=== PATIENT | female | born 1935 | race Caucasian/White ===

== ENCOUNTER 2019-04-22 14:59 | Observation (INO) | payer MEDICARE, SELFPAY | END 2019-04-23 11:10 | disposition home or self-care (01) | LOC: MEDSURG 04-23 08:36 | PROVIDERS: Admitting Provider Internal Medicine; Family Provider Nurse Practitioner; PCP Nurse Practitioner; Visit Provider Internal Medicine | DX: I48.0 Paroxysmal atrial fibrillation (principal); G40.909 Epilepsy, unspecified, not intractable, without status epilepticus; E78.5 Hyperlipidemia, unspecified; Z86.73 Personal history of transient ischemic attack (TIA), and cerebral infarction without residual deficits; E03.9 Hypothyroidism, unspecified; Z91.81 History of falling; Z79.82 Long term (current) use of aspirin; Z82.49 Family history of ischemic heart disease and other diseases of the circulatory system | CPT/HCPCS: 36415 ×2; 71045; 80053 ×2; 80177; 81003; 84439; 84443; 84481; 84484 ×3; 85025 ×2; 93005 ×4; 96361; 96374; 99285; G0378 ×81; J3490 ==

== ENCOUNTER 2019-05-16 12:14 | Observation (INO) | payer MEDICARE, SELFPAY ==
[2019-05-16 12:14] VITALS: BP 106/60; PULSE 53; RESP 16; TEMP 36.4; O2SAT 100; BMI 18.4
--- NOTE | 2019-05-16 12:17 | ED_ITS ---
Entered by Paula Khan, acting as scribe for Go Palma DO HPI - SOB/Dyspnea General: Chief Complaint: General Medical Stated Complaint: AFIB WITH RVR Time Seen by Provider: 05/16/19 12:18 History of Present Illness: HPI Narrative: 84-year-old female with a history of atrial fibrillation and she reports she has a history of seizures as well. She is on Keppra. She has breakthrough seizures from time to time without thing she remembers everything and happens during them she can anticipate them they usually occur when she is standing she will get lightheaded and dizzy states she tries to sit down because she is on aspirin and is worried about bleeding out if she falls and hits her head. She denies any chest pain or shortness of breath she has lost control of her bowels of these episodes she cannot really describe the episodes very well forming other than that she can remember all of them. She is awake and alert oriented at this time she is not post ictal she tells me the most recent episode was a couple hours before she came in. Associated symptoms: Deny abdominal pain, chest pain, fever(s), nausea, orthopnea or vomiting Review of Systems Const: Denies: fever, chills, body aches, change in appetite, fatigue or malaise ENMT: Denies: throat pain, ear pain, nasal discharge or nasal congestion Card: Denies: chest pain, edema, shortness of breath on exertion or shortness of breath when lying down Resp: Denies: shortness of breath, productive cough or non-productive cough GI: Denies: abdominal pain, nausea, vomiting, vomiting blood, coffee grounds in vomit, diarrhea, constipation, bloating, blood in stool or black tarry stool : Denies: flank pain, difficulty urinating, painful urination, urinary frequency or urinary urgency Skin/Breast: Denies: rash or itching PFSH ED PFSH: Statuses (acute, chronic, etc) shown below reflect problem list status as previously entered and may not be historically accurate Medical History Brain lesion (Acute) Hyperlipidemia (Acute) Hypothyroidism (Acute) Seizure disorder (Acute) Surgical History History of bladder surgery (Acute) History of tonsillectomy (Acute) History of total hysterectomy (Acute) Family History Other CAD (coronary artery disease) Social History Smoking and tobacco status: never smoked Alcohol intake: never Household members: family Housing: House Physical Exam Const: COMMON NORMALS: no apparent distress GENERAL APPEARANCE: cooperative and comfortable ORIENTATION/CONSCIOUSNESS: Yes awake, Yes oriented to person, Yes oriented to place and Yes oriented to time HENMT: COMMON NORMALS: normocephalic, head/scalp atraumatic, hearing grossly normal bilaterally, external ears normal, EAC's normal, TM's normal bilaterally, nasal mucous membranes and turbinates normal, moist oral mucous membranes and oropharynx normal HEAD & SCALP: normocephalic and atraumatic NOSE: nasal mucous membranes and turbinates normal EXTERNAL EAR: Yes external ears normal EXTERNAL AUDITORY CANAL: EAC's normal TYMPANIC MEMBRANE: TM's normal bilaterally Eye: COMMON NORMALS: PERRL, EOMs intact bilaterally, conjunctivae normal and no scleral icterus CONJUNCTIVA: Yes conjunctivae normal PUPIL: Yes PERRL Neck/C-Spine: COMMON NORMALS: full ROM, no lymphadenopathy, supple and no JVD Lymph: LYMPHATIC: no lymphadenopathy noted and no lymphedema noted Resp: COMMON NORMALS: normal respiratory effort, no retractions, no use of accessory muscles and clear to auscultation bilaterally AUSCULTATION: clear to auscultation bilaterally Cardio: COMMON NORMALS: no JVD and no murmurs RHYTHM: abnormal rhythm irregularly irregular GI: COMMON NORMALS: soft to palpation and no hepatosplenomegaly AUSCULTATION: Yes normoactive bowel sounds PALPATION: Yes soft, No tender, No guarding and Yes no hepatosplenomegaly Extremity: COMMON NORMALS: normal to inspection, normal capillary refill, no clubbing, cyanosis or edema, no calf tenderness and no pedal edema Neuro: SENSORIUM/ORIENTATION: Yes oriented to person, Yes oriented to place and Yes oriented to time Skin: COMMON NORMALS: no rashes or lesions noted GENERAL SKIN EXAM: no rashes or lesions noted Course ED course: SPECT patient having intermittent episodes of A. fib where she is getting syncopal or near syncopal she described what she describes as seizures she can remember almost the entire event and anticipated she is not particularly postictal by her own description. She does have a loop recorder on. Given she is had several these episodes and while here in the emergency room she is gone from being bradycardic in the 50s to one point when I was going to discharge her went into talk to her and her heart rate was up into the 130s 140s it resolved spontaneously. We will put her on observation see if there is a potential to make some medication adjustments to control her heart rate better Vital Signs: Vital signs: Vital Signs Temperature 97.8 F 05/17/19 15:11 Pulse Rate 73 05/17/19 15:11 Respiratory Rate 18 05/17/19 15:11 Blood Pressure 127/63 05/17/19 15:11 Pulse Oximetry 97 05/17/19 15:11 MDM - SOB/Dyspnea Lab Data: Labs: Lab Results 05/16/19 05/16/19 05/16/19 Range/Units 12:55 12:55 12:55 WBC 6.7 (4.0-10.0) 10^3/ uL RBC 4.26 (4.1-5.3) 10^6/u L Hgb 12.5 (11.5-15.3) g/dL Hct 38.3 (37.0-47.0) % MCV 89.9 (81-99) fL MCH 29.3 (28.0-34.0) pg MCHC 32.6 (30.0-36.0) g/dL RDW 13.0 (12.1-15.1) % Plt Count 232 (130-400) 10^3/c mm MPV 9.8 (7.4-10.4) fL Neut % (Auto) 73.7 % Lymph % (Auto) 18.2 % [place] % (Auto) 6.4 % Eos % (Auto) 0.9 % Baso % (Auto) 0.4 % Neut # (Auto) 4.9 (1.8-7.7) 10^3/u L Lymph # (Auto) 1.2 (0.8-4.8) 10^3/u L [place] # (Auto) 0.4 (0.2-0.9) 10^3/u L Eos # (Auto) 0.1 (0.0-0.8) 10^3/u L Baso # (Auto) 0.0 (0.0-0.1) 10^3/u L Nucleated RBC % (a uto) 0 % Nucleated RBCs # 0.0 /100WBC Sodium 141 (136-145) mmol/L Potassium 4.0 (3.5-5.1) mmol/L Chloride 105 (98-107) mmol/L Carbon Dioxide 24 (22-29) mmol/L Anion Gap 16.0 (5-19) BUN 14 (8-23) mg/dL Creatinine 0.5 (0.5-0.9) mg/dL Glucose 104 (74-106) mg/dL Calcium 9.9 (8.5-10.5) mg/dL Total Bilirubin 0.6 (0.15-1.2) mg/dL AST 28 (0-32) U/L ALT 32 (0-33) U/L Alkaline Phosphata se 112 H (35-105) IU/L Troponin T Baselin e (0-10) ng/mL NT-Pro-B Natriuret Pep 4054 H (0-450) pg/mL Total Protein 6.2 L (6.6-8.7) g/dL Albumin 3.7 (3.5-5.2) g/dL Globulin 2.5 (1.3-4.6) g/dL 05/16/19 Range/Units 16:25 WBC (4.0-10.0) 10^3/ uL RBC (4.1-5.3) 10^6/u L Hgb (11.5-15.3) g/dL Hct (37.0-47.0) % MCV (81-99) fL MCH (28.0-34.0) pg MCHC (30.0-36.0) g/dL RDW (12.1-15.1) % Plt Count (130-400) 10^3/c mm MPV (7.4-10.4) fL Neut % (Auto) % Lymph % (Auto) % [place] % (Auto) % Eos % (Auto) % Baso % (Auto) % Neut # (Auto) (1.8-7.7) 10^3/u L Lymph # (Auto) (0.8-4.8) 10^3/u L [place] # (Auto) (0.2-0.9) 10^3/u L Eos # (Auto) (0.0-0.8) 10^3/u L Baso # (Auto) (0.0-0.1) 10^3/u L Nucleated RBC % (a uto) % Nucleated RBCs # /100WBC Sodium (136-145) mmol/L Potassium (3.5-5.1) mmol/L Chloride (98-107) mmol/L Carbon Dioxide (22-29) mmol/L Anion Gap (5-19) BUN (8-23) mg/dL Creatinine (0.5-0.9) mg/dL Glucose (74-106) mg/dL Calcium (8.5-10.5) mg/dL Total Bilirubin (0.15-1.2) mg/dL AST (0-32) U/L ALT (0-33) U/L Alkaline Phosphata se (35-105) IU/L Troponin T Baselin e 20 H (0-10) ng/mL NT-Pro-B Natriuret Pep (0-450) pg/mL Total Protein (6.6-8.7) g/dL Albumin (3.5-5.2) g/dL Globulin (1.3-4.6) g/dL Discharge Plan Discharge Admit Provider: Cruz Cooper Clinical Impression: Paroxysmal atrial fibrillation, Seizure disorder Condition: Stable Discharge Orders: Discharge Order (Routine); Ordered 05/17/19 Ordered By: Cruz Cooper Discharge Diet: Regular Discharge Activity: Resume usual activity Interventions: ED Discharge Assessment Last Done: 05/16/19 17:58 Discharge Date/Time: 05/16/19 17:23 Coding Level of Care Code ED Analog 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
[2019-05-16 13:03] LABS: Basophils % 0.4 %; Eosinophils # 0.1 10^3/uL (0.0-0.8); Eosinophils % 0.9 %; Hematocrit 38.3 % (37.0-47.0); Hemoglobin 12.5 g/dL (11.5-15.3); Lymphocytes # 1.2 10^3/uL (0.8-4.8); Lymphocytes % 18.2 %; Mean Corpuscular HGB Conc 32.6 g/dL (30.0-36.0); Mean Corpuscular Hemoglobin 29.3 pg (28.0-34.0); Mean Corpuscular Volume 89.9 fL (81-99); Mean Platelet Volume 9.8 fL (7.4-10.4); Monocytes # 0.4 10^3/uL (0.2-0.9); Monocytes % 6.4 %; Neutrophils # 4.9 10^3/uL (1.8-7.7); Neutrophils % 73.7 %; Nucleated Red Blood Cells % 0 %; Platelet Count 232 10^3/cmm (130-400); Red Blood Count 4.26 10^6/uL (4.1-5.3); White Blood Count 6.7 10^3/uL (4.0-10.0)
[2019-05-16] MEDS: sodium chloride 0.9% 500 ML IV (13:05)
[2019-05-16 13:18] LABS: Alanine Aminotransferase 32 U/L (0-33); Albumin Level 3.7 g/dL (3.5-5.2); Alkaline Phosphatase 112 IU/L (35-105); Aspartate Amino Transferase 28 U/L (0-32); Blood Urea Nitrogen 14 mg/dL (8-23); Calcium 9.9 mg/dL (8.5-10.5); Carbon Dioxide 24 mmol/L (22-29); Chloride 105 mmol/L (98-107); Globulin 2.5 g/dL (1.3-4.6); Glucose 104 mg/dL (74-106); Sodium 141 mmol/L (136-145); Total Bilirubin 0.6 mg/dL (0.15-1.2); Total Protein 6.2 g/dL (6.6-8.7)
--- NOTE | 2019-05-16 16:06 | ECG_ITS ---
Measurements Intervals [place] Rate: 60 P: 60 OK: 164 QRS: -56 QRSD: 113 T: 90 QT: 430 QTc: 433 SINUS RHYTHM INCOMPLETE RIGHT BUNDLE BRANCH BLOCK [90+ ms QRS DURATION, TERMINAL R IN V1/V2, 40+ ms S IN I/aVL/V4/V5/V6] LEFT ANTERIOR FASCICULAR BLOCK [QRS AXIS <= -45, QR IN I, RS IN II] LEFT VENTRICULAR HYPERTROPHY AND ST-T CHANGE [VOLTAGE CRITERIA PLUS ST/T ABNORMALITY] POSSIBLE SEPTAL MYOCARDIAL INFARCTION , OF INDETERMINATE AGE [30 ms Q WAVE IN V1/V2] POSSIBLE LATERAL MYOCARDIAL INFARCTION , OF INDETERMINATE AGE [30 ms Q WAVE IN I/aVL/V5/V6] Compared to ECG 04/22/2019 17:20:23 No significant changes Electronically Signed On 05-17-2019 15:33:14 SWORD SWALLOWER by Alla Hooper M.D. [email or web address]
--- NOTE | 2019-05-16 16:07 | XRR_ITS ---
PROCEDURE INFORMATION: Exam: XR Chest, 1 View Exam date and time: 05/16/2019 4:33 PM Age: 84 years old Clinical indication: Cough; Prior surgery; Patient HX: PT has afib; Additional info: Cough, afib and seizure like activity TECHNIQUE: Imaging protocol: XR of the chest Views: 1 view. COMPARISON: CR Chest 1 [place] [id number] 04/22/2019 10:35 AM FINDINGS: Lungs: Lungs are mildly hyperinflated but otherwise clear. Pleural space: Apical pleural thickening is not changed from previous. Heart/Mediastinum: Heart is within normal limits of size. Bones/joints: Unremarkable. XR/XR chest 1V portable [id number] IMPRESSION: No acute infiltrate.
[2019-05-16 16:50] LABS: Troponin(5th) Baseline 20 ng/mL (0-10)
[2019-05-16 17:58] VITALS: BP 127/53; PULSE 75; RESP 20; O2SAT 97
--- NOTE | 2019-05-16 18:04 | PM.HP ---
Providers/Chief Complaint Primary Care Provider: Fransisca Patel Chief Complaint: AFIB WITH RVR History of Present Illness Trudy Jimenez is a 84 year old female Review of Systems Const: Reports: chills; Denies: fever, body aches, change in appetite, malaise, night sweats, diaphoresis, change in sleep pattern, daytime sleepiness or snoring Eyes: Denies: change in vision, blurry vision, photophobia, eye discomfort or eye discharge ENMT: Denies: throat pain, enlarged tonsils, hoarseness, mouth pain, oral sores/lesions, dry mouth, tinnitus, nasal congestion or post nasal drip Card: Reports: palpitations and pre-syncope; Denies: chest pain, irregular heart rhythm, edema, swelling of feet/ankles, lightheadedness, syncope, shortness of breath on exertion, shortness of breath when lying down, leg pain with exertion or bluish discoloration of hands/feet Resp: Denies: shortness of breath, productive cough, non-productive cough, wheezing, stridor, pain on inspiration, change in phlegm color, coughing up blood or chest congestion GI: Denies: abdominal pain, nausea, vomiting, vomiting blood, coffee grounds in vomit, difficulty swallowing, heartburn/indigestion, diarrhea, constipation, bloating, cramping, change in bowel habits, painful bowel movements, blood in stool or black tarry stool : Denies: flank pain, painful urination, urinary frequency, urinary urgency, urinary hesitancy, nighttime urination or blood in urine Musc: Denies: neck pain, back pain, extremity pain, joint pain, joint swelling, redness, joint stiffness or limited range of motion Neuro: Reports: frequent falls and dizziness; Denies: headache, numbness in extremities, weakness in extremities, changes in sensation, lack of coordination, difficulty walking, vertigo, confusion, slurred speech, difficulty communicating thoughts or seizure-like activity Psych: Denies: anxiety, depression, mood swings, panic attacks, hopelessness or irritability Endo: Denies: excessive urination, excessive thirst, tired all the time, cold intolerance, excessive sweating, flushing or heat intolerance Danielito/Lymph: Denies: easy bruising or easy bleeding All/Imm: Denies: tongue swelling, facial swelling or acute wheezing Medications/Allergies Home Medications Medication Instructions Recorded Confirmed Last Taken Type levetiracetam 1,000 mg PO BID 05/16/19 05/16/19 05/15/19 History Allergies Allergy/AdvReac Type Severity Reaction Status Date / Time Iodinated Contrast Media Allergy anaphylaxis Verified 05/16/19 12:22 Penicillins Allergy anaphylaxis Verified 05/16/19 12:22 Sulfa (Sulfonamide Allergy headache Verified 05/16/19 12:22 Antibiotics) PFSH Acute PFSH: Statuses (acute, chronic, etc) shown below reflect problem list status as previously entered and may not be historically accurate Medical History (Updated 05/16/19 @ 18:08 by Cruz Cooper MD) Brain lesion (Acute) Hyperlipidemia (Acute) Hypothyroidism (Acute) Seizure disorder (Acute) Surgical History (Updated 05/16/19 @ 18:08 by Cruz Cooper MD) History of bladder surgery (Acute) History of tonsillectomy (Acute) History of total hysterectomy (Acute) Family History (Updated 05/16/19 @ 18:08 by Cruz Cooper MD) Other CAD (coronary artery disease) Social History (Updated 05/16/19 @ 18:09 by Cruz Cooper MD) Smoking and tobacco status: never smoked Alcohol intake: never Substance/Drug Use: never Household members: family Housing: House Vitals/I&O/Wt Last Vital Signs Temp 97.5 F L 05/16/19 12:14 Pulse 75 05/16/19 17:58 Resp 20 H 05/16/19 17:58 BP 127/53 05/16/19 17:58 Pulse Ox 97 05/16/19 17:58 Weight last 48 hrs Weight 50.349 kg Physical Exam Narrative: EXAM NARRATIVE: General: No acute distress, AO x3, thin built, no pallor, occasional chills HEENT: PERRLA, pupils bilaterally equal and reactive Chest: Normal vesicular breath sounds, no added sounds, equal good air entry bilaterally CVS: S1-S2 regular, no murmurs, no tachycardia, no gallops, no rubs Abdomen: Soft, nontender, no organomegaly, bowel sounds present Neuro: No focal deficits, no facial deformity, AO x3, power 5/5 in all limbs Data : 05/16/19 12:55 05/16/19 12:55 A&P Assessment and plan (1) Paroxysmal atrial fibrillation: Status: Acute Code(s): I48.0 - Paroxysmal atrial fibrillation (2) Hypothyroidism: Status: Acute Code(s): E03.9 - Hypothyroidism, unspecified (3) Seizure disorder: Status: Acute Code(s): G40.909 - Epilepsy, unspecified, not intractable, without status epilepticus (4) Hyperlipidemia: Status: Acute Code(s): E78.5 - Hyperlipidemia, unspecified Additional A&P Information Paroxysmal A. fib: At present patient is in sinus rhythm. In ER patient had recurrent episodes of going into atrial fibrillation. Patient has a loop recorder placed 5 days ago by her junior linux administrator and primary care physician in [facility]. We will continue patient's home dose of Lopressor 37.5 twice daily. The patient has further episodes of persistent atrial fibrillation can give her 2.5 mg Lopressor every 4 hours for heart rate more than 120 with blood pressure over 110 systolic mmHg. Possible seizure disorder: Doubt patient actually has a seizure disorder. But patient is already on Keppra by her neurologist. She says she is been evaluated for possible brain lesions. Patient has an MRI scheduled at [facility] this week. We will continue the home dose of Keppra. We will get Keppra levels. As patient is having all the work-up at [facility] will not start the work-up again. Will not get an echocardiogram, CT head, MRI head as always being done as an outpatient. Had a discussion with patient regarding anticoagulation but she wants to discuss with her home neurologist, home junior linux administrator, primary care physician before starting to do so. We will continue patient's home dose of aspirin 325 which will also help with anticoagulation. Hypothyroidism: Patient home dose of levothyroxine has been continued. Check TSH. Occasional chills: Checking TSH as above. Patient does not have any history of fever, flulike symptoms, runny nose, change in bowel movements, dysuria. We will check UA. We will hold off on starting any antibiotics for now. Full code Lovenox for DVT prophylaxis Cardiac diet. Attestations Medical Necessity Statement*: Patient would need admission for less than 48 hours for observation for approximately A. fib. Time Spent in Patient Care: Greater than 35 minutes Coding Level of Care Code Acute Associate Buyer for Chg Fwd Diagnoses Paroxysmal atrial fibrillation I48.0 Hypothyroidism E03.9 Seizure disorder G40.909 Hyperlipidemia E78.5
[2019-05-16 18:43] LABS: NT Pro B Type Natriuretic Pept 4054 pg/mL (0-450)
[2019-05-16 20:00] VITALS: BP 106/49; PULSE 63; RESP 20; TEMP 37; O2SAT 98
[2019-05-16] MEDS: enoxaparin 40 mg/0.4 mL Syringe SUBCUT (20:19)
[2019-05-16] MEDS: levETIRAcetam 500 mg Tablet 1000 MG PO (20:21)
[2019-05-16 22:49] LABS: Troponin 5 6HR 21.25 ng/L (0-10); Troponin 5 6HR Delta 1.25 ng/L (0-12)
[2019-05-17] VITALS: BP 131/66; PULSE 63; RESP 20; TEMP 36.9; O2SAT 96
[2019-05-17 04:00] VITALS: BP 147/69; PULSE 68; RESP 20; TEMP 36.6; O2SAT 97
[2019-05-17 06:01] LABS: Basophils % 0.6 %; Eosinophils # 0.1 10^3/uL (0.0-0.8); Eosinophils % 2.5 %; Hematocrit 35.8 % (37.0-47.0); Hemoglobin 11.5 g/dL (11.5-15.3); Lymphocytes # 1.7 10^3/uL (0.8-4.8); Lymphocytes % 33.7 %; Mean Corpuscular HGB Conc 32.1 g/dL (30.0-36.0); Mean Corpuscular Hemoglobin 29.1 pg (28.0-34.0); Mean Corpuscular Volume 90.6 fL (81-99); Mean Platelet Volume 10.5 fL (7.4-10.4); Monocytes # 0.5 10^3/uL (0.2-0.9); Monocytes % 9.8 %; Neutrophils # 2.7 10^3/uL (1.8-7.7); Neutrophils % 52.8 %; Nucleated Red Blood Cells % 0 %; Platelet Count 203 10^3/cmm (130-400); Red Blood Count 3.95 10^6/uL (4.1-5.3); Red Cell Distribution Width 12.8 % (12.1-15.1); White Blood Count 5.1 10^3/uL (4.0-10.0)
[2019-05-17 06:16] LABS: Alanine Aminotransferase 28 U/L (0-33); Albumin Level 3.4 g/dL (3.5-5.2); Alkaline Phosphatase 105 IU/L (35-105); Aspartate Amino Transferase 29 U/L (0-32); Blood Urea Nitrogen 16 mg/dL (8-23); Calcium 9.6 mg/dL (8.5-10.5); Carbon Dioxide 26 mmol/L (22-29); Chloride 107 mmol/L (98-107); Globulin 2.6 g/dL (1.3-4.6); Glucose 87 mg/dL (74-106); Sodium 143 mmol/L (136-145); Thyroid Stimulating Hormone 0.52 uIU/mL (0.27-4.20); Total Bilirubin 0.5 mg/dL (0.15-1.2)
[2019-05-17 07:44] VITALS: BP 136/57; PULSE 67; RESP 18; TEMP 36.6; O2SAT 96
[2019-05-17 08:13] VITALS: BP 146/63; BP 152/68; BP 154/65; PULSE 62; PULSE 77
[2019-05-17] MEDS: aspirin 325 mg Tablet PO (11:26)
[2019-05-17] MEDS: levothyroxine 88 mcg Tablet PO (11:26)
[2019-05-17] MEDS: metoprolol tartrate 25 mg Tablet 37.5 MG PO (11:26)
[2019-05-17] MEDS: levETIRAcetam 500 mg Tablet 1000 MG PO (11:28)
[2019-05-17] MEDS: atorvastatin 40 mg Tablet PO (11:29)
[2019-05-17 11:32] VITALS: BP 127/63; PULSE 73; RESP 18; TEMP 36.6; O2SAT 97
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
--- NOTE | 2019-05-17 13:53 | P.DS_ITS ---
Discharge Providers Date of Admission: 05/16/19 17:00 Date of Discharge: 05/17/19 Attending Provider at Admission: Cruz Cooper MD Attending Provider at Discharge: Cruz Cooper MD Primary Care Provider: Fransisca Patel Diagnoses at Discharge Discharge Diagnosis (1) Paroxysmal atrial fibrillation: Status: Acute (2) Hypothyroidism: Status: Acute (3) Seizure disorder: Status: Acute (4) Hyperlipidemia: Status: Acute Reason for Visit Reason for Visit: Reason For Visit: AFIB WITH RVR Hospital Course Discharge Summary: Trudy Jimenez is a 84 year old female with past medical history of possible seizure disorder, 3 strokes, 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 In the ER patient had 3 bursts of atrial fibrillation with rapid ventricular response going up to 130s so she was admitted to the hospital for observation. As per her [id number] patient has recurrent episodes when she would stand up and would go into atrial fibrillation leading her to have dizziness followed by tremulous shaking of her body, gurgling from her mouth and occasional bowel and bladder accidents. Patient was observed on the floor with telemetry. Patient overnight did not have any more episodes of A. fib with RVR and her blood pressures remained stable. Patient's orthostatics were negative as well. Patient's TSH levels were checked and within normal limits. In view of the kind of history Keppra levels were checked and are pending. As patient is being followed up with neurology and neurosurgery at [facility] they want to discuss with both snow removal/plowing and neurologist before starting the anticoagulation. In past patient's neurologist as per the patient has shown come some concerns regarding anticoagulation due to her occasional to frequent falls along with a possible mass under evaluation with recurrent MRIs. Patient is being discharged in hemodynamically stable condition to follow-up with Dr. Aranda from cardiology in 1 week and her neurologist in 1 week as well to discuss about anticoagulation. Patient states she has had a recent echocardiogram done at [facility]. Physical Exam Narrative: EXAM NARRATIVE: General: No acute distress, AO x3, thin built, no pallor, occasional chills HEENT: PERRLA, pupils bilaterally equal and reactive Chest: Normal vesicular breath sounds, no added sounds, equal good air entry bilaterally CVS: S1-S2 regular, no murmurs, no tachycardia, no gallops, no rubs Abdomen: Soft, nontender, no organomegaly, bowel sounds present Neuro: No focal deficits, no facial deformity, AO x3, power 5/5 in all limbs Discharge Data Data Completed and Pending: Completed Studies During Hospitalization Category Date Time Status XR chest 1V lyn ble [id number] Stat Exams 05/16/19 16:07 Completed Pending at discharge Category Date Time Status Levetiracetam Kep pra Stat Lab 05/16/19 12:55 Received Labs from last 24 hours 05/17/19 05/17/19 05/16/19 05:00 05:00 22:23 WBC 5.1 RBC 3.95 L Hgb 11.5 Hct 35.8 L MCV 90.6 MCH 29.1 MCHC 32.1 RDW 12.8 Plt Count 203 MPV 10.5 H Neut % (Auto) 52.8 Lymph % (Auto) 33.7 [place] % (Auto) 9.8 Eos % (Auto) 2.5 Baso % (Auto) 0.6 Neut # (Auto) 2.7 Lymph # (Auto) 1.7 [place] # (Auto) 0.5 Eos # (Auto) 0.1 Baso # (Auto) 0.0 Nucleated RBC % (a uto) 0 Nucleated RBCs # 0.0 Sodium 143 Potassium 4.0 Chloride 107 Carbon Dioxide 26 Anion Gap 14.0 BUN 16 Creatinine 0.6 Glucose 87 Calcium 9.6 Total Bilirubin 0.5 AST 29 ALT 28 Alkaline Phosphata se 105 Troponin I 6 Hour 21.25 H Troponin I Hi Sens Del 1.25 Troponin T Baselin e NT-Pro-B Natriuret Pep Total Protein 6.0 L Albumin 3.4 L Globulin 2.6 TSH 0.52 05/16/19 05/16/19 16:25 12:55 WBC RBC Hgb Hct MCV MCH MCHC RDW Plt Count MPV Neut % (Auto) Lymph % (Auto) [place] % (Auto) Eos % (Auto) Baso % (Auto) Neut # (Auto) Lymph # (Auto) [place] # (Auto) Eos # (Auto) Baso # (Auto) Nucleated RBC % (a uto) Nucleated RBCs # Sodium Potassium Chloride Carbon Dioxide Anion Gap BUN Creatinine Glucose Calcium Total Bilirubin AST ALT Alkaline Phosphata se Troponin I 6 Hour Troponin I Hi Sens Del Troponin T Baselin e 20 H NT-Pro-B Natriuret Pep 4054 H Total Protein Albumin Globulin TSH Vitals: Last Vital Signs Temp 97.8 F 05/17/19 11:32 Pulse 73 05/17/19 11:32 Resp 18 05/17/19 11:32 BP 127/63 05/17/19 11:32 Pulse Ox 97 05/17/19 11:32 Discharge Plan Discharge Patient Disposition: Home, Self-Care Condition: Stable Prescriptions: Continued atorvastatin 40 mg tablet 40 mg PO DAILY RF: 0 levothyroxine 88 mcg capsule 88 mcg PO ONCE RF: 0 aspirin 325 mg tablet 325 mg PO DAILY RF: 0 metoprolol tartrate 25 mg tablet 37.5 mg PO BID RF: 0 levetiracetam 500 mg Tablet 1,000 mg PO BID RF: 0 Discharge Orders: Discharge Order (Routine); Ordered 05/17/19 Ordered By: Cruz Cooper Referrals: Fransisca Patel FNP [Primary Care Provider] - Chicho Aranda MD [Physician] - 7-10 days Discharge Diet: Regular Discharge Activity: Resume usual activity Activity Restrictions/Additional Instructions: Patient needs a follow-up with Dr. Aranda from cardiology and patient's outpatient neurologist and neurosurgeon at [facility] to discuss regarding initiation of anticoagulation in view of paroxysmal A. fib. Discharge Attestations Time Spent in Discharge Care*: greater than 30 min Specific Discharge Activities: Specific discharge activities: educating patient, educating and/or supporting family/caregiver and evaluating patient/reviewing data Status at Discharge: Cognitive status at discharge: cognitively intact , Behavioral status at discharge: cooperative , Functional status at discharge: independent ambulation Overall status at discharge: patient is back to baseline Quality Metrics Clinical Quality Measures During this hospital stay, did patient experience: None Coding Level of Care Code Acute Varnish Thinner for Chg Fwd Diagnoses Paroxysmal atrial fibrillation I48.0 Hypothyroidism E03.9 Seizure disorder G40.909 Hyperlipidemia E78.5
[2019-05-17 15:11] VITALS: BP 127/63; PULSE 73; RESP 18; TEMP 36.6; O2SAT 97
[2019-05-20 13:01] LABS: Levetiracetam Keppra 20.4 mcg/mL
== END 2019-05-17 16:00 | disposition home or self-care (01) ==
LOC: ER 17:59 → MEDSURG 19:40
PROVIDERS: Admitting Provider Student in an Organized Health Care Education/Training Program; Emergency Provider Family Medicine; Family Provider Nurse Practitioner; PCP Nurse Practitioner; Visit Provider Student in an Organized Health Care Education/Training Program
DX: I48.0 Paroxysmal atrial fibrillation (principal); E03.9 Hypothyroidism, unspecified; G40.909 Epilepsy, unspecified, not intractable, without status epilepticus; E78.5 Hyperlipidemia, unspecified; Z86.73 Personal history of transient ischemic attack (TIA), and cerebral infarction without residual deficits; Z82.49 Family history of ischemic heart disease and other diseases of the circulatory system
CPT/HCPCS: 12345; 36415; 71045; 80053; 80177; 83880; 84443; 84484; 85025; 93005; 94664; 96361; 96372; 96374; 99281; 99285; G0378; J1650; J7040

== ENCOUNTER 2019-05-18 19:55 | Observation (INO) | payer MEDICARE, SELFPAY ==
[2019-05-18 19:56] VITALS: BP 145/86; PULSE 113; RESP 16; TEMP 36.4; O2SAT 100; BMI 18.4
--- NOTE | 2019-05-18 20:02 | ED_ITS ---
Entered by Vianey Lucio, acting as scribe for Ash Fritz DO May 18, 2019 19:55 HPI - Chest Pain General: Chief Complaint: Chest Pain Stated Complaint: NAUSEA/ AFIB/ TREMORS Time Seen by Provider: 05/18/19 20:01 Source: EMS Mode of arrival: EMS Limitations: no limitations History of Present Illness: HPI narrative: 84 yo f came to the er by [facility] for afib w rvr and nausea. Onset was today. Pt states that she just got out of the hospital last night. Pt states that she has had some dizziness and some pounding in her upper left chest. Pt states that she has not had any sob with the afib. MD complaint: other (afib w rvr) Timing of current episode: episodic Onset: during rest Pain radiation: none Severity: mild Relieving factors: nothing Context: other (recent hospitalization) Associated symptoms: Reports nausea; Deny abdominal pain, dyspnea, fever(s), palpitations or vomiting Risk Factors: Coronary artery disease risk factors: none Thoracic aortic dissection risk factors: none Review of Systems Const: Denies: fever Eyes: Denies: photophobia ENMT: Denies: enlarged tonsils Card: Denies: palpitations Resp: Denies: shortness of breath GI: Reports: nausea; Denies: abdominal pain or vomiting : Denies: painful urination, urinary frequency, urinary urgency or blood in urine Musc: Denies: neck pain, back pain, redness or joint warmth Skin/Breast: Denies: rash, itching or redness Neuro: Reports: dizziness; Denies: headache, vertigo, confusion or seizure-like activity Psych: Denies: anxiety, visual hallucinations or auditory hallucinations All/Imm: Denies: acute wheezing PFSH ED PFSH: Statuses (acute, chronic, etc) shown below reflect problem list status as previously entered and may not be historically accurate Medical History Brain lesion (Acute) Hyperlipidemia (Acute) Hypothyroidism (Acute) Seizure disorder (Acute) Surgical History History of bladder surgery (Acute) History of tonsillectomy (Acute) History of total hysterectomy (Acute) Family History Other CAD (coronary artery disease) Social History Smoking and tobacco status: never smoked Alcohol intake: never Household members: family Housing: House Physical Exam Const: GENERAL APPEARANCE: well developed ORIENTATION/CONSCIOUSNESS: Yes oriented to person, Yes oriented to place and Yes oriented to time HENMT: COMMON NORMALS: normocephalic, external ears normal and external nose normal HEAD & SCALP: normocephalic; no scalp tenderness FACE & SINUS: normal facial exam NOSE: external nose normal and no nasal discharge EXTERNAL EAR: Yes external ears normal MOUTH: tongue normal TEETH & GINGIVA: no abnormal tooth and associated gingiva THROAT: posterior oropharynx normal; no peritonsillar mass Eye: COMMON NORMALS: PERRL, EOMs intact bilaterally and conjunctivae normal EYELID: eyelids normal CONJUNCTIVA: Yes conjunctivae normal PUPIL: Yes PERRL Neck/C-Spine: COMMON NORMALS: full ROM GENERAL: No tracheal deviation CERVICAL SPINE: Yes normal cervical lordosis and No cervical spine tenderness Chest: COMMONS NORMALS: inspection of chest normal CHEST: No tenderness Resp: COMMON NORMALS: clear to auscultation bilaterally EFFORT & INSPECTION: No tachypneic, No respiratory distress, No retractions, No uses accessory muscles and No tracheal deviation AUSCULTATION: clear to auscultation bilaterally, no rhonchi, no wheezes and lung sounds not diminished Cardio: COMMON NORMALS: regular rate and regular rhythm RATE: regular rate RHYTHM: regular rhythm HEART SOUNDS: no murmurs PERIPHERAL PULSES: radial pulses present GI: INSPECTION: No abdominal distension AUSCULTATION: No hyperactive bowel sounds and No hypoactive bowel sounds PALPATION: No guarding and No rigid PERCUSSION: no dullness to percussion and no tympanic to percussion : COMMON NORMALS: Yes no CVA tenderness BLADDER/KIDNEY EXAM: Yes no CVA tenderness Back/Pelvis: COMMON NORMALS: no CVA tenderness Neuro: SENSORIUM/ORIENTATION: Yes oriented to person, Yes oriented to place and Yes oriented to time Psych: COMMON NORMALS: mental status grossly normal Skin: COMMON NORMALS: no rashes or lesions noted GENERAL SKIN EXAM: no rashes or lesions noted Course Consultations: Consultation #1: domingo Time: 22:07 Vital Signs: Vital signs: Vital Signs Temperature 97.6 F 05/18/19 19:56 Pulse Rate 113 H 05/18/19 19:56 Respiratory Rate 16 05/18/19 19:56 Blood Pressure 145/86 05/18/19 19:56 Pulse Oximetry 100 05/18/19 19:56 MDM - Chest Pain Lab Data: Labs: Lab Results 05/18/19 05/18/19 05/18/19 Range/Units 19:30 19:30 19:30 WBC 7.5 (4.0-10.0) 10^3/ uL RBC 4.47 (4.1-5.3) 10^6/u L Hgb 12.9 (11.5-15.3) g/dL Hct 39.5 (37.0-47.0) % MCV 88.4 (81-99) fL MCH 28.9 (28.0-34.0) pg MCHC 32.7 (30.0-36.0) g/dL RDW 13.0 (12.1-15.1) % Plt Count 240 (130-400) 10^3/c mm MPV 10.7 H (7.4-10.4) fL Neut % (Auto) 56.5 % Lymph % (Auto) 30.3 % [place] % (Auto) 8.8 % Eos % (Auto) 3.5 % Baso % (Auto) 0.4 % Neut # (Auto) 4.3 (1.8-7.7) 10^3/u L Lymph # (Auto) 2.3 (0.8-4.8) 10^3/u L [place] # (Auto) 0.7 (0.2-0.9) 10^3/u L Eos # (Auto) 0.3 (0.0-0.8) 10^3/u L Baso # (Auto) 0.0 (0.0-0.1) 10^3/u L Nucleated RBC % (a uto) 0 % Nucleated RBCs # 0.0 /100WBC PT 12.90 (10.5-13.3) SECO NDS INR 0.94 (0.8-1.2) APTT 30.4 (23.9-36.7) SECO NDS Sodium 143 (136-145) mmol/L Potassium 4.1 (3.5-5.1) mmol/L Chloride 105 (98-107) mmol/L Carbon Dioxide 28 (22-29) mmol/L Anion Gap 14.1 (5-19) BUN 14 (8-23) mg/dL Creatinine 0.6 (0.5-0.9) mg/dL Glucose 90 (74-106) mg/dL Calcium 9.8 (8.5-10.5) mg/dL Total Bilirubin 0.2 (0.15-1.2) mg/dL AST 34 H (0-32) U/L ALT 34 H (0-33) U/L Alkaline Phosphata se 128 H (35-105) IU/L Troponin T Baselin e (0-10) ng/mL Troponin T 120 Min [place] (0-10) ng/mL Delta Troponin T (0-10) ABS# NT-Pro-B Natriuret Pep 1775 H (0-450) pg/mL Total Protein 6.6 (6.6-8.7) g/dL Albumin 3.9 (3.5-5.2) g/dL Globulin 2.7 (1.3-4.6) g/dL Urine Color (Yellow) Urine Appearance (CLEAR) Urine pH (5-7) Ur Specific Gravit y (1.005-1.030) Urine Protein (Negative) Urine Glucose (UA) (Normal) Urine Ketones (Negative) Urine Occult Blood (Negative) Urine Nitrate (Negative) Urine Bilirubin (NEGATIVE) Urine Urobilinogen (Negative) mg/dL Ur Leukocyte Shae ase (Negative) 05/18/19 05/18/19 05/18/19 Range/Units 19:30 20:37 21:28 WBC (4.0-10.0) 10^3/ uL RBC (4.1-5.3) 10^6/u L Hgb (11.5-15.3) g/dL Hct (37.0-47.0) % MCV (81-99) fL MCH (28.0-34.0) pg MCHC (30.0-36.0) g/dL RDW (12.1-15.1) % Plt Count (130-400) 10^3/c mm MPV (7.4-10.4) fL Neut % (Auto) % Lymph % (Auto) % [place] % (Auto) % Eos % (Auto) % Baso % (Auto) % Neut # (Auto) (1.8-7.7) 10^3/u L Lymph # (Auto) (0.8-4.8) 10^3/u L [place] # (Auto) (0.2-0.9) 10^3/u L Eos # (Auto) (0.0-0.8) 10^3/u L Baso # (Auto) (0.0-0.1) 10^3/u L Nucleated RBC % (a uto) % Nucleated RBCs # /100WBC PT (10.5-13.3) SECO NDS INR (0.8-1.2) APTT (23.9-36.7) SECO NDS Sodium (136-145) mmol/L Potassium (3.5-5.1) mmol/L Chloride (98-107) mmol/L Carbon Dioxide (22-29) mmol/L Anion Gap (5-19) BUN (8-23) mg/dL Creatinine (0.5-0.9) mg/dL Glucose (74-106) mg/dL Calcium (8.5-10.5) mg/dL Total Bilirubin (0.15-1.2) mg/dL AST (0-32) U/L ALT (0-33) U/L Alkaline Phosphata se (35-105) IU/L Troponin T Baselin e 19 H (0-10) ng/mL Troponin T 120 Min [place] 17.35 H (0-10) ng/mL Delta Troponin T -1.65 L (0-10) ABS# NT-Pro-B Natriuret Pep (0-450) pg/mL Total Protein (6.6-8.7) g/dL Albumin (3.5-5.2) g/dL Globulin (1.3-4.6) g/dL Urine Color Yellow (Yellow) Urine Appearance Clear (CLEAR) Urine pH 6 (5-7) Ur Specific Gravit y 1.015 (1.005-1.030) Urine Protein Neg (Negative) Urine Glucose (UA) Norm (Normal) Urine Ketones Negative (Negative) Urine Occult Blood Neg (Negative) Urine Nitrate Negative (Negative) Urine Bilirubin Neg (NEGATIVE) Urine Urobilinogen Norm (Negative) mg/dL Ur Leukocyte Shae ase Negative (Negative) Imaging Data^: CXR: Radiologist's impression: [address] [address] XRay Report Signed Patient: Han Jimenez #: [id number] : 5Acct#:[id number] Age/Sex: 84 / FADM Date: 05/18/19 Loc: ERRoom/Bed: Attending Dr: Ordering Provider/Ordering MD: Ash Fritz DO Date of Service: 05/18/19 Procedure(s): XR chest 1V portable [id number] Accession Number(s): [id number] Report Number: [id number] PROCEDURE INFORMATION: Exam: XR Chest, 1 View Exam date and time: 05/18/2019 8:18 PM Age: 84 years old Clinical indication: Other: Afib & tachycardia; Additional info: PT complain of rapid heart rate & afib. TECHNIQUE: Imaging protocol: XR of the chest Views: 1 view. COMPARISON: CR XR chest 1V portable [id number] 05/16/2019 4:22 PM FINDINGS: Lungs: Unremarkable. No consolidation. Pleural space: Unremarkable. No pleural effusion. No pneumothorax. Heart/Mediastinum: Unremarkable. No cardiomegaly. Vasculature: There is calcified plaque in the aortic arch. Bones/joints: Unremarkable. Other findings: Stable appearance of the chest the prior study. XR/XR chest 1V portable [id number] IMPRESSION: No evidence for acute cardiopulmonary disease. Dictated By:Argelia Proctor MD Signed By:Argelia Proctor MDSigned Date/Time:05/18/192103 DD/ 01 Discharge Plan Discharge Patient Disposition: Placed in Observation Clinical Impression: Paroxysmal atrial fibrillation Condition: Stable Prescriptions: No Action atorvastatin 40 mg tablet 40 mg PO DAILY RF: 0 levothyroxine 88 mcg capsule 88 mcg PO ONCE RF: 0 aspirin 325 mg tablet 325 mg PO DAILY RF: 0 metoprolol tartrate 25 mg tablet 37.5 mg PO BID RF: 0 levetiracetam 500 mg Tablet 1,000 mg PO BID RF: 0 Referrals: Fransisca Patel FNP [Primary Care Provider] - Coding Level of Care Code ED Wire Splicer for Chg Fwd The documentation recorded by the Naveed godinez Stephanie Lyn, accurately reflects the service I personally performed and the decisions made by me, Ash Fritz, May 18, 2019 19:55
--- NOTE | 2019-05-18 20:16 | XRR_ITS ---
PROCEDURE INFORMATION: Exam: XR Chest, 1 View Exam date and time: 05/18/2019 8:18 PM Age: 84 years old Clinical indication: Other: Afib & tachycardia; Additional info: PT complain of rapid heart rate & afib. TECHNIQUE: Imaging protocol: XR of the chest Views: 1 view. COMPARISON: CR XR chest 1V portable [id number] 05/16/2019 4:22 PM FINDINGS: Lungs: Unremarkable. No consolidation. Pleural space: Unremarkable. No pleural effusion. No pneumothorax. Heart/Mediastinum: Unremarkable. No cardiomegaly. Vasculature: There is calcified plaque in the aortic arch. Bones/joints: Unremarkable. Other findings: Stable appearance of the chest the prior study. XR/XR chest 1V portable [id number] IMPRESSION: No evidence for acute cardiopulmonary disease.
--- NOTE | 2019-05-18 20:16 | ECG_ITS ---
Measurements Intervals Union Rate: 91 P: LA: 0 QRS: -67 QRSD: 105 T: 103 QT: 379 QTc: 466 ATRIAL FIBRILLATION INCOMPLETE RIGHT BUNDLE BRANCH BLOCK [90+ ms QRS DURATION, TERMINAL R IN V1/V2, 40+ ms S IN I/aVL/V4/V5/V6] LEFT ANTERIOR FASCICULAR BLOCK [QRS AXIS <= -45, QR IN I, RS IN II] VOLTAGE CRITERIA FOR LVH [MEETS CRITERIA IN ONE OF: R(aVL), S(V1), R(V5), R (V5/V6)+S(V1)] POSSIBLE LATERAL MYOCARDIAL INFARCTION , OF INDETERMINATE AGE [30 ms Q WAVE IN I/aVL/V5/V6] Compared to ECG 05/16/2019 16:25:17 Sinus rhythm no longer present ST (T wave) deviation no longer present Myocardial infarct finding still present Electronically Signed On 05-19-2019 18:52:17 P[employer] AND SHOVEL WORKER by Chicho Aranda M.D. [email or web address]
[2019-05-18] MEDS: ondansetron 2 mg/ML SDV 2 mL 4 MG IVP (20:21)
[2019-05-18 20:24] LABS: Basophils % 0.4 %; Eosinophils # 0.3 10^3/uL (0.0-0.8); Eosinophils % 3.5 %; Hematocrit 39.5 % (37.0-47.0); Hemoglobin 12.9 g/dL (11.5-15.3); Lymphocytes # 2.3 10^3/uL (0.8-4.8); Lymphocytes % 30.3 %; Mean Corpuscular HGB Conc 32.7 g/dL (30.0-36.0); Mean Corpuscular Hemoglobin 28.9 pg (28.0-34.0); Mean Corpuscular Volume 88.4 fL (81-99); Mean Platelet Volume 10.7 fL (7.4-10.4); Monocytes # 0.7 10^3/uL (0.2-0.9); Monocytes % 8.8 %; Neutrophils # 4.3 10^3/uL (1.8-7.7); Neutrophils % 56.5 %; Nucleated Red Blood Cells % 0 %; Platelet Count 240 10^3/cmm (130-400); Red Blood Count 4.47 10^6/uL (4.1-5.3); White Blood Count 7.5 10^3/uL (4.0-10.0)
[2019-05-18] MEDS: metoprolol tartrate 1 mg/1 mL SDV 5 mL 5 MG IV (20:26)
[2019-05-18] MEDS: LORazepam 2 mg/mL INJ 1 mL 0.5 MG IM (20:27)
[2019-05-18 20:28] LABS: INR 0.94 (0.8-1.2)
[2019-05-18 20:29] LABS: Partial Thromboplastin Time 30.4 SECONDS (23.9-36.7)
[2019-05-18 20:38] LABS: Troponin(5th) Baseline 19 ng/mL (0-10)
[2019-05-18 20:46] LABS: Alanine Aminotransferase 34 U/L (0-33); Albumin Level 3.9 g/dL (3.5-5.2); Alkaline Phosphatase 128 IU/L (35-105); Anion Gap 14.1 (5-19); Aspartate Amino Transferase 34 U/L (0-32); Blood Urea Nitrogen 14 mg/dL (8-23); Calcium 9.8 mg/dL (8.5-10.5); Carbon Dioxide 28 mmol/L (22-29); Chloride 105 mmol/L (98-107); Globulin 2.7 g/dL (1.3-4.6); Glucose 90 mg/dL (74-106); NT Pro B Type Natriuretic Pept 1775 pg/mL (0-450); Potassium 4.1 mmol/L (3.5-5.1); Sodium 143 mmol/L (136-145); Total Bilirubin 0.2 mg/dL (0.15-1.2); Total Protein 6.6 g/dL (6.6-8.7)
[2019-05-18] MEDS: metoprolol tartrate 1 mg/1 mL SDV 5 mL 2.5 MG IV (20:52)
[2019-05-18 21:11] LABS: Add Urine Microscopic? NO
[2019-05-18 21:22] LABS: Bilirubin Urine Neg (NEGATIVE); Blood Urine Neg (Negative); Glucose Urine UA Norm (Normal); Ketones Urine Negative (Negative); Leukocyte Esterase Urine Negative (Negative); Nitrate Urine Negative (Negative); Protein Urine Neg (Negative); Specific Gravity, Urine 1.015 (1.005-1.030); Urine Appearance Clear (CLEAR); Urine Color Yellow (Yellow); Urobilinogen Urine Norm (Negative); pH Urine 6 (5-7)
[2019-05-18 21:48] LABS: Troponin 5 2HR 17.35 ng/mL (0-10)
[2019-05-18 21:55] LABS: Troponin 5 2HR Delta -1.65 ABS# (0-10)
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
--- NOTE | 2019-05-18 22:16 | ECG_ITS ---
Measurements Intervals [place] Rate: 120 P: ID: 0 QRS: -69 QRSD: 104 T: 106 QT: 329 QTc: 465 ATRIAL FIBRILLATION WITH RAPID VENTRICULAR RESPONSE LEFT ANTERIOR FASCICULAR BLOCK [QRS AXIS <= -45, QR IN I, RS IN II] VOLTAGE CRITERIA FOR LVH [MEETS CRITERIA IN ONE OF: R(aVL), S(V1), R(V5), R (V5/V6)+S(V1)] ST DEVIATION AND MODERATE T-WAVE ABNORMALITY, CONSIDER LATERAL ISCHEMIA [-0.1+ mV T WAVE IN I/aVL/V5/V6] WARNING: DATA QUALITY MAY AFFECT INTERPRETATION Compared to ECG 05/16/2019 16:25:17 T-wave abnormality now present Possible ischemia now present Sinus rhythm no longer present Incomplete right bundle-branch block no longer present ST (T wave) deviation no longer present Myocardial infarct finding no longer present Electronically Signed On 05-19-2019 18:54:42 ASSISTANT MECHANIC by Chicho Aranda M.D. [id number]
[2019-05-18 22:20] VITALS: BP 115/64; PULSE 92; RESP 16
[2019-05-18 22:21] VITALS: BP 115/64; PULSE 82; RESP 15
[2019-05-18 23:25] VITALS: BP 123/62; PULSE 57; RESP 24; O2SAT 97
[2019-05-18 23:48] VITALS: BP 123/62; PULSE 57; RESP 24; TEMP 36.4; O2SAT 97
[2019-05-19] MEDS: enoxaparin 40 mg/0.4 mL Syringe SUBCUT (00:07)
[2019-05-19 02:16] LABS: Troponin 5 6HR 14.59 ng/L (0-10)
--- NOTE | 2019-05-19 02:16 | ECG_ITS ---
Measurements Intervals [place] Rate: 71 P: 53 ND: 168 QRS: -60 QRSD: 109 T: 102 QT: 415 QTc: 454 SINUS RHYTHM WITH OCCASIONAL SUPRAVENTRICULAR PREMATURE COMPLEXES LEFT ANTERIOR FASCICULAR BLOCK [QRS AXIS <= -45, QR IN I, RS IN II] LEFT VENTRICULAR HYPERTROPHY AND ST-T CHANGE [VOLTAGE CRITERIA PLUS ST/T ABNORMALITY] POSSIBLE LATERAL MYOCARDIAL INFARCTION [30 ms Q WAVE IN I/aVL/V5/V6], OF INDETERMINATE AGE Compared to ECG 05/16/2019 16:25:17 Incomplete right bundle-branch block no longer present ST (T wave) deviation still present Myocardial infarct finding still present Electronically Signed On 05-19-2019 18:54:59 CANS VACUUM TESTER by Chicho Aranda M.D. [id number]
[2019-05-19 02:17] LABS: Troponin 5 6HR Delta -4.41 ng/L (0-12)
[2019-05-19 04:00] VITALS: BP 121/57; PULSE 66; RESP 24; TEMP 36.8; O2SAT 96
[2019-05-19 04:55] LABS: Basophils % 0.7 %; Eosinophils # 0.2 10^3/uL (0.0-0.8); Eosinophils % 3.5 %; Hematocrit 34.6 % (37.0-47.0); Hemoglobin 11.2 g/dL (11.5-15.3); Lymphocytes # 1.5 10^3/uL (0.8-4.8); Lymphocytes % 27.6 %; Mean Corpuscular HGB Conc 32.4 g/dL (30.0-36.0); Mean Corpuscular Hemoglobin 29.3 pg (28.0-34.0); Mean Corpuscular Volume 90.6 fL (81-99); Mean Platelet Volume 10.4 fL (7.4-10.4); Monocytes # 0.4 10^3/uL (0.2-0.9); Neutrophils # 3.3 10^3/uL (1.8-7.7); Neutrophils % 59.3 %; Nucleated Red Blood Cells % 0 %; Platelet Count 206 10^3/cmm (130-400); Red Blood Count 3.82 10^6/uL (4.1-5.3); White Blood Count 5.5 10^3/uL (4.0-10.0)
[2019-05-19 05:14] LABS: Blood Urea Nitrogen 12 mg/dL (8-23); Calcium 9.4 mg/dL (8.5-10.5); Carbon Dioxide 26 mmol/L (22-29); Chloride 111 mmol/L (98-107); Glucose 126 mg/dL (74-106); Osmolality Calculated 298 mOsm/kg (285-295); Sodium 145 mmol/L (136-145)
[2019-05-19 08:00] VITALS: BP 131/70; PULSE 76; RESP 22; TEMP 36.9; O2SAT 97
[2019-05-19] MEDS: levETIRAcetam 500 mg Tablet 1000 MG PO ×2 (09:08→17:22)
[2019-05-19] MEDS: aspirin 325 mg EC Tablet PO (09:08)
[2019-05-19] MEDS: levothyroxine 88 mcg Tablet PO (09:08)
[2019-05-19] MEDS: metoprolol tartrate 50 mg Tablet PO ×2 (09:08→17:22)
[2019-05-19 12:00] VITALS: BP 143/63; PULSE 67; RESP 22; TEMP 36.9; O2SAT 95
--- NOTE | 2019-05-19 12:24 | PM.TDS ---
Transfer Summary Providers Date of Admission: 05/18/19 22:08 Date of Discharge: 05/19/19 Attending Provider at Admission: Chicho Bansal MD Attending Provider at Transfer: Olegario Mccormick MD Primary Care Provider: MABEL Allison Anticipated Date of Transfer: Anticipated date of transfer: 05/19/19 Receiving Facility & Provider: Receiving Provider: [] Receiving facility: [] Diagnoses at Discharge Discharge Diagnosis (1) Paroxysmal atrial fibrillation: Status: Acute Problem details: -This is patient's sixth admission in the last 3 months for lightheadedness, dizziness -Last to admission, has had episodes of atrial fibrillation, but cardiology has ordered a loop recorder as there is a question if these are actually atrial atrial fib episodes -Just discharged 05/17/2018 for presumed A. fib episodes In the ER patient was found to have A. fib heart rates in the 120s, after Cardizem drip, converted to normal sinus rhythm, now Metroprolol 50 twice daily -Currently normal sinus rhythm heart rates 60s -The question is she developed seizure episodes are leading to arrhythmias -As per neurosurgery, patient is on high-dose aspirin 325 mg once daily, due to concerns of risk of bleeding given this intracranial mass on an anticoagulant (2) Seizure disorder: Status: Acute Problem details: -sees Dr. Chao neurosurgery -sees Dr. 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 (3) Right frontal lobe mass: Status: Acute Problem details: -sees Dr. Chao neurosurgery -sees Dr. 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 Secondary petechial blood products with cortical laminar necrosis and petechial gyral enhancement. Mass-effect is improving. Underlying neoplasm is not highly suspect. -Upon review of neurosurgery's note, there was concerns that patient was suffering from a right frontal/basal ganglia pathology differential included neoplastic versus infectious versus inflammatory process versus chronic infarct -Patient was offered a brain biopsy, however elected for conservative management, repeat MRI in 3 months -Patient was supposed to have an MRI last week, however due to weather was unable to get this done Reason for Visit Reason for Visit: Reason For Visit: afib w/rvr Hospital Course Hospital Course: This is a 84-year-old female with a past medical history of presumed paroxysmal atrial fibrillation, right frontal lobe mass, seizures, hypo-thyroidism, hyperlipidemia who presents to the emergency room due to complaints of lightheadedness and dizziness and palpitations. Patient was discharged on 05/17/2018 for similar episodes, she was found to recurrent episodes of atrial fibrillation with RVR, her dose of metoprolol was increased to 37.5 twice daily. Of note this is patient's sixth admission in the last 3 months for lightheadedness, dizziness which has been presumed to be associated with atrial fibrillation. Patient states that she got home from the hospital, was doing well, but last night she had episodes of lightheadedness and dizziness and chest palpitations. She is unsure if this episode was related to A. fib or seizures. As in the past it has been difficult discern if she is actually having seizure-like episodes or atrial fibrillation. According to patient, Dr. Aranda from cardiology seems to believe that her arrhythmia events are not really atrial fibrillation, that is why she has a loop recorder in place currently. In the emergency room patient was found to have atrial fibrillation with RVR, heart rates in the 130s, was put on a Cardizem drip, converted to normal sinus rhythm, transition to metoprolol 50 twice daily, currently normal sinus rhythm heart rates in the 60s. On review of patient's medical records and speaking with patient she has this right frontal lobe mass that is being worked up for a possible neoplastic process versus inflammatory versus infectious versus chronic infarct, as a source of her seizures. Patient and family are electing for conservative management, and are hesitant to forego a brain biopsy. The question is if she is having silent breakthrough seizures that are leading to these arrhythmia events. It is very difficult to discern if her seizure symptoms from her arrhythmia symptoms. She states that in October when she originally had her seizure, she passed out for roughly 10 minutes, had some tonic-clonic event of her extremities.however since then, the only symptoms that she has according to her that tells her that she is having seizures if she feels lightheaded, dizzy, fatigue or passes out. After discussion of the risks and benefits, patient voiced understanding, I would recommend transfer to higher level of care for continuous EEG monitoring and repeat MRI of her brain. As we do not have neurology coverage, nor the capabilities of continues the EEG, nor can we do an MRI of her brain over the weekend I would recommend higher level of care. Patient is agreeable, would like to go to [facility], [facility] was contacted for transfer, [facility] service and neurology service was contacted, accepted the transfer. Physical Exam Const: COMMON NORMALS: no apparent distress and oriented x3 GENERAL APPEARANCE: cooperative and comfortable HENMT: COMMON NORMALS: normocephalic HEAD & SCALP: normocephalic Eye: COMMON NORMALS: PERRL, EOMs intact bilaterally and no papilledema GENERAL EYE: normal appearance of both eyes PUPIL: Yes PERRL DIRECT OPHTHALMOSCOPY: Yes no papilledema Neck/C-Spine: COMMON NORMALS: full ROM, no lymphadenopathy, no JVD and thyroid normal THYROID: thyroid normal Lymph: LYMPHATIC: no lymphadenopathy noted Resp: COMMON NORMALS: normal respiratory effort, no retractions, no use of accessory muscles and clear to auscultation bilaterally AUSCULTATION: clear to auscultation bilaterally Cardio: COMMON NORMALS: no JVD, regular rate, regular rhythm, S1 normal heart sound, S2 normal heart sound, no gallops, no clicks and no murmurs RATE: regular rate RHYTHM: regular rhythm HEART SOUNDS: S1 normal and S2 normal GI: COMMON NORMALS: normal to inspection, nondistended, normoactive bowel sounds, soft to palpation, non-tender and no hepatosplenomegaly PALPATION: Yes soft and Yes no hepatosplenomegaly Extremity: COMMON NORMALS: normal to inspection, full ROM and no pedal edema Neuro: COMMON NORMALS: oriented x3, CN's II-XII intact bilaterally, moves all extremities and no focal motor deficits Psych: COMMON NORMALS: mental status grossly normal, thought process normal and cooperative THOUGHT PROCESS: normal thought process TS Data Data Completed and Pending: Completed Studies During Hospitalization Category Date Time Status XR chest 1V lyn ble [id number] Stat Exams 01/25/20 20:16 Completed Labs from last 24 hours 05/19/19 05/19/19 05/19/19 03:58 03:58 01:33 WBC 5.5 RBC 3.82 L Hgb 11.2 L Hct 34.6 L MCV 90.6 MCH 29.3 MCHC 32.4 RDW 13.0 Plt Count 206 MPV 10.4 Neut % (Auto) 59.3 Lymph % (Auto) 27.6 Bennett % (Auto) 8.0 Eos % (Auto) 3.5 Baso % (Auto) 0.7 Neut # (Auto) 3.3 Lymph # (Auto) 1.5 Bennett # (Auto) 0.4 Eos # (Auto) 0.2 Baso # (Auto) 0.0 Nucleated RBC % (a uto) 0 Nucleated RBCs # 0.0 PT INR APTT Sodium 145 Potassium 4.0 Chloride 111 H Carbon Dioxide 26 Anion Gap 12.0 BUN 12 Creatinine 0.6 Glucose 126 H Calculated Osmolal ity 298 H Calcium 9.4 Total Bilirubin AST ALT Alkaline Phosphata se Troponin I 6 Hour 14.59 H Troponin I Hi Sens Del -4.41 L Troponin T Baselin e Troponin T 120 Min [place] Troponin T NT-Pro-B Natriuret Pep Total Protein Albumin Globulin Urine Color Urine Appearance Urine pH Ur Specific Gravit y Urine Protein Urine Glucose (UA) Urine Ketones Urine Occult Blood Urine Nitrate Urine Bilirubin Urine Urobilinogen Ur Leukocyte Shae ase 05/18/19 05/18/19 05/18/19 21:28 20:37 19:30 WBC RBC Hgb Hct MCV MCH MCHC RDW Plt Count MPV Neut % (Auto) Lymph % (Auto) [place] % (Auto) Eos % (Auto) Baso % (Auto) Neut # (Auto) Lymph # (Auto) [place] # (Auto) Eos # (Auto) Baso # (Auto) Nucleated RBC % (a uto) Nucleated RBCs # PT INR APTT Sodium Potassium Chloride Carbon Dioxide Anion Gap BUN Creatinine Glucose Calculated Osmolal ity Calcium Total Bilirubin AST ALT Alkaline Phosphata se Troponin I 6 Hour Troponin I Hi Sens Del Troponin T Baselin e 19 H Troponin T 120 Min [place] 17.35 H Delta Troponin T -1.65 L NT-Pro-B Natriuret Pep Total Protein Albumin Globulin Urine Color Yellow Urine Appearance Clear Urine pH 6 Ur Specific Gravit y 1.015 Urine Protein Neg Urine Glucose (UA) Norm Urine Ketones Negative Urine Occult Blood Neg Urine Nitrate Negative Urine Bilirubin Neg Urine Urobilinogen Norm Ur Leukocyte Shae ase Negative 05/18/19 05/18/19 05/18/19 19:30 19:30 19:30 WBC 7.5 RBC 4.47 Hgb 12.9 Hct 39.5 MCV 88.4 MCH 28.9 MCHC 32.7 RDW 13.0 Plt Count 240 MPV 10.7 H Neut % (Auto) 56.5 Lymph % (Auto) 30.3 Bennett % (Auto) 8.8 Eos % (Auto) 3.5 Baso % (Auto) 0.4 Neut # (Auto) 4.3 Lymph # (Auto) 2.3 Bennett # (Auto) 0.7 Eos # (Auto) 0.3 Baso # (Auto) 0.0 Nucleated RBC % (a uto) 0 Nucleated RBCs # 0.0 PT 12.90 INR 0.94 APTT 30.4 Sodium 143 Potassium 4.1 Chloride 105 Carbon Dioxide 28 Anion Gap 14.1 BUN 14 Creatinine 0.6 Glucose 90 Calculated Osmolal ity Calcium 9.8 Total Bilirubin 0.2 AST 34 H ALT 34 H Alkaline Phosphata se 128 H Troponin I 6 Hour Troponin I Hi Sens Del Troponin T Baselin e Troponin T 120 Min [place] Troponin T NT-Pro-B Natriuret Pep 1775 H Total Protein 6.6 Albumin 3.9 Globulin 2.7 Urine Color Urine Appearance Urine pH Ur Specific Gravit y Urine Protein Urine Glucose (UA) Urine Ketones Urine Occult Blood Urine Nitrate Urine Bilirubin Urine Urobilinogen Ur Leukocyte Shae ase Vitals: Last Vital Signs Temp 98.5 F 05/19/19 08:00 Pulse 76 05/19/19 08:00 Resp 22 H 05/19/19 08:00 BP 131/70 05/19/19 08:00 Pulse Ox 97 05/19/19 08:00 TS Medications Medications Home Medications atorvastatin 40 mg tablet 40 mg PO DAILY 05/01/19 [History Confirmed 05/18/19] levothyroxine 88 mcg capsule 88 mcg PO ONCE 05/01/19 [History Confirmed 05/18/19] aspirin 325 mg tablet 325 mg PO DAILY tab 05/07/19 [History Confirmed 05/18/19] metoprolol tartrate 25 mg tablet 37.5 mg PO BID tab 05/07/19 [History Confirmed 05/18/19] levetiracetam 1,000 mg PO BID 05/16/19 [History Confirmed 05/18/19] Active Medications Aspirin (Aspirin Ec) 325 mg PO DAILY [facility] Last Admin: 05/19/19 09:08 Dose: 325 mg Documented by: Atorvastatin Calcium (Lipitor) 40 mg PO BEDTIME [facility] Enoxaparin Sodium (Lovenox) 40 mg SUBCUT Q24H [facility] Last Admin: 05/19/19 00:07 Dose: 40 mg Documented by: Levetiracetam (Keppra) 1,000 mg PO BID [facility] Last Admin: 05/19/19 09:08 Dose: 1,000 mg Documented by: Levothyroxine Sodium (Synthroid) 88 mcg PO DAILY [facility] Last Admin: 05/19/19 09:08 Dose: 88 mcg Documented by: Metoprolol Tartrate (Lopressor) 50 mg PO BID [facility] Last Admin: 05/19/19 09:08 Dose: 50 mg Documented by: Ondansetron HCl (Zofran) 4 mg IVP Q6H PRN PRN Reason: NAUSEA AND VOMITING Discharge Plan Discharge Patient Disposition: Xfer Other Condition: Stable Prescriptions: New metoprolol tartrate 50 mg Tablet 50 mg PO BID 30 Days Qty: 60 RF: 0 Continued atorvastatin 40 mg tablet 40 mg PO DAILY RF: 0 levothyroxine 88 mcg capsule 88 mcg PO ONCE RF: 0 aspirin 325 mg tablet 325 mg PO DAILY RF: 0 levetiracetam 500 mg Tablet 1,000 mg PO BID RF: 0 Discontinued metoprolol tartrate 25 mg tablet 37.5 mg PO BID RF: 0 Discharge Orders: Transfer Out of Facility (Order); Ordered 05/19/19 Ordered By: Olegario Mccormick Referrals: Fransisca Patel FNP [Primary Care Provider] - Discharge Diet: Advance as tolerated Discharge Activity: Resume usual activity Transfer Attestations Time Spent in Transfer Care*: less than 30 min Status at Transfer: Cognitive status at transfer: cognitively intact, Behavioral status at transfer: cooperative, Quality Metrics Clinical Quality Measures: During this hospital stay, did patient experience: None Coding Level of Care Code Acute Director Non Profit for g Fwd Diagnoses Paroxysmal atrial fibrillation I48.0 Seizure disorder G40.909 Right frontal lobe mass G93.89
--- NOTE | 2019-05-19 12:35 | PC.CHAP ---
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 [] Patient/Family/Request visit [] Outpatient visit [] Follow-up visit [] Physician referral [] Code/Alert [] Routine visit [] Staff referral [] Actively dying [] Patient sleeping [] Family support [] [] Out of room [] Palliative care [] [] Receiving care in room [] Pre-surgical visit [] Trauma [] Long length of stay [] ICU visit [] Other: Relational/Emotional Strength [x] Patient feels connected with others/family/visitors/staff [] Distress [] Loneliness/isolation [] Abandonment Spirituality of Patient [x] Person of [place] [] Attends Temple of their [place] [x] Believes in Prayer [] Reads Bible or Jainism materials [] There are Spiritual issues to be addressed Iron Carrier Interventions [x] Prayer [x] Active listening [x] Non-anxious presence [x] Spiritual/emotional support [] Crisis/trauma care [] Spiritual counseling [] Bereavement support [] Provided bereavement packet [] Provided Bible/devotional materials [] Provided toy/stuffed animal, coloring book to patient or family member [x] Completed spiritual assessment [] Provided Communion [] Anointing/Thomas [] Salvation [] Other: Impact on Illness or Injury [] Angry [] Fearful [] Anxious [] Often cries [] Exhaustion [] Unable to work [] Unable to attend evangelical [] Unable to walk/stand [] Unable to read [] Unable to drive [] Unable to eat/drink [] Unable to sleep [] Unable to be with family [] Other: Summary Iron Carrier prayed with patient. Time spent with patient 5 minutes
[2019-05-19 16:00] VITALS: BP 148/62; PULSE 65; RESP 15; TEMP 36.8; O2SAT 96
[2019-05-19 18:36] VITALS: BP 148/62; PULSE 65; RESP 15; TEMP 36.8; O2SAT 96
== END 2019-05-19 18:13 | disposition other institution (70) ==
LOC: ER 22:12 → CSU 22:37
PROVIDERS: Admitting Provider Internal Medicine; Emergency Provider Emergency Medicine; Family Provider Nurse Practitioner; PCP Nurse Practitioner; Visit Provider Family Medicine
DX: I48.0 Paroxysmal atrial fibrillation (principal); G40.909 Epilepsy, unspecified, not intractable, without status epilepticus; G93.89 Other specified disorders of brain; F41.9 Anxiety disorder, unspecified; F32.9 Major depressive disorder, single episode, unspecified; Z79.01 Long term (current) use of anticoagulants; Z86.73 Personal history of transient ischemic attack (TIA), and cerebral infarction without residual deficits; E78.5 Hyperlipidemia, unspecified; E03.9 Hypothyroidism, unspecified; M81.0 Age-related osteoporosis without current pathological fracture; Z82.49 Family history of ischemic heart disease and other diseases of the circulatory system
CPT/HCPCS: 12345; 36415; 71045; 80048; 80053; 81003; 83880; 84484; 85025; 85610; 85730; 93005; 96365; 96372; 96374; 96375; 96376; 99282; 99291; G0378; J1650; J2060; J2405; J3490

== ENCOUNTER 2019-05-28 17:52 | Emergency (ER) | payer MEDICARE, SELFPAY ==
[2019-05-28 17:53] VITALS: BP 107/51; PULSE 138; RESP 20; TEMP 36.4; O2SAT 97; BMI 20.7
--- NOTE | 2019-05-28 17:55 | ED_ITS ---
Entered by Paula Khan, acting as scribe for Ishmael Espinal MD HPI - General Adult General: Chief complaint: General Medical Stated complaint: LOW BP Time Seen by Provider: 05/28/19 17:55 Source: patient and EMS Mode of arrival: EMS Limitations: no limitations History of Present Illness: MD complaint: Afib, low pressure, dizziness Onset (ago): hour(s) (today) Radiation: non-radiation Severity: mild Pain Consistency: constant Relieving factors: none Exacerbating factors: none Associated symptoms: Reports other (high heart rate and low blood pressure); Deny chest pain, dyspnea, headache(s), nausea, rash or vomiting Treatments prior to arrival: none Review of Systems Const: Denies: fever, chills, body aches or change in appetite Eyes: Reports: photophobia ENMT: Denies: enlarged tonsils Card: Denies: chest pain Resp: Denies: shortness of breath GI: Denies: abdominal pain, nausea, vomiting or diarrhea : Denies: painful urination Musc: Denies: joint warmth Skin/Breast: Denies: rash Neuro: Denies: headache Psych: Denies: depression Daniel[place]/Lymph: Denies: easy bruising All/Imm: Denies: acute wheezing PFSH ED PFSH: Statuses (acute, chronic, etc) shown below reflect problem list status as previously entered and may not be historically accurate Medical History (Updated 05/28/19 @ 19:39 by Ishmael Espinal MD) Brain lesion (Acute) Chronic atrial fibrillation (Acute) Hyperlipidemia (Acute) Hypothyroidism (Acute) Osteoporosis (Acute) Seizure disorder (Acute) -sees Dr. Chao neurosurgery -sees Dr. 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 Vaginal prolapse (Acute) Surgical History History of bladder surgery (Acute) History of tonsillectomy (Acute) History of total hysterectomy (Acute) Social History Smoking and tobacco status: never smoked Alcohol intake: never Household members: family Housing: House Physical Exam Const: COMMON NORMALS: no apparent distress, oriented x3 and healthy appearing HENMT: COMMON NORMALS: normocephalic and head/scalp atraumatic HEAD & SCALP: normocephalic and atraumatic Eye: COMMON NORMALS: PERRL and EOMs intact bilaterally PUPIL: Yes PERRL Neck/C-Spine: COMMON NORMALS: full ROM and supple Chest: COMMONS NORMALS: inspection of chest normal and palpation of chest normal Resp: COMMON NORMALS: normal respiratory effort, no retractions, no use of accessory muscles and clear to auscultation bilaterally AUSCULTATION: clear to auscultation bilaterally Cardio: COMMON NORMALS: no murmurs RATE: tachycardic OTHER: irregularly irregular GI: COMMON NORMALS: normal to inspection, nondistended, normoactive bowel sounds, soft to palpation, non-tender and no masses PALPATION: Yes soft Extremity: COMMON NORMALS: normal to inspection and full ROM Neuro: COMMON NORMALS: oriented x3, moves all extremities and no focal motor deficits Psych: COMMON NORMALS: mental status grossly normal, thought process normal and cooperative THOUGHT PROCESS: normal thought process Skin: COMMON NORMALS: no rashes or lesions noted and no wounds GENERAL SKIN EXAM: no rashes or lesions noted Course Vital Signs: Vital signs: Vital Signs Temperature 97.6 F 05/28/19 17:53 Pulse Rate 73 05/28/19 20:06 Respiratory Rate 16 05/28/19 20:06 Blood Pressure 112/53 05/28/19 20:06 Pulse Oximetry 94 05/28/19 20:06 MDM - General Adult MDM Narrative: Medical decision making narrative: Patient presents here with atrial fibrillation that is chronic in nature. Patient converted while here and heart rate has been stable. She is well-appearing here and lab work is normal. Patient is stable for discharge and is return if worsening. Lab Data: Labs: Lab Results 05/28/19 05/28/19 Range/Units 18:48 18:48 WBC 4.8 (4.0-10.0) 10^3/ uL RBC 4.02 L (4.1-5.3) 10^6/u L Hgb 11.5 (11.5-15.3) g/dL Hct 36.5 L (37.0-47.0) % MCV 90.8 (81-99) fL MCH 28.6 (28.0-34.0) pg MCHC 31.5 (30.0-36.0) g/dL RDW 13.2 (12.1-15.1) % Plt Count 230 (130-400) 10^3/c mm MPV 9.8 (7.4-10.4) fL Neut % (Auto) 52.2 % Lymph % (Auto) 27.7 % [place] % (Auto) 16.2 % Eos % (Auto) 2.7 % Baso % (Auto) 0.6 % Neut # (Auto) 2.5 (1.8-7.7) 10^3/u L Lymph # (Auto) 1.3 (0.8-4.8) 10^3/u L [place] # (Auto) 0.8 (0.2-0.9) 10^3/u L Eos # (Auto) 0.1 (0.0-0.8) 10^3/u L Baso # (Auto) 0.0 (0.0-0.1) 10^3/u L Nucleated RBC % (a uto) 0 % Nucleated RBCs # 0.0 /100WBC Sodium 137 (136-145) mmol/L Potassium 3.8 (3.5-5.1) mmol/L Chloride 106 (98-107) mmol/L Carbon Dioxide 21 L (22-29) mmol/L Anion Gap 13.8 (5-19) BUN 15 (8-23) mg/dL Creatinine 0.6 (0.5-0.9) mg/dL Glucose 133 H (65-115) mg/dL Calcium 8.7 (8.5-10.5) mg/dL Total Bilirubin 0.2 (0.15-1.2) mg/dL AST 20 (0-32) U/L ALT 27 (0-33) U/L Alkaline Phosphata se 94 (35-105) IU/L Total Protein 6.1 L (6.6-8.7) g/dL Albumin 2.9 L (3.5-5.2) g/dL Globulin 3.2 (1.3-4.6) g/dL EKG Data^: EKG 1: EKG interpretation date: 05/28/19 EKG interpretation time: 18:05 Interpretation: afib rvr hr [address] or t wave abnormalities Discharge Plan Discharge Patient Disposition: Home, Self-Care Clinical Impression: Paroxysmal atrial fibrillation Condition: Stable Prescriptions: No Action atorvastatin 40 mg tablet 40 mg PO DAILY RF: 0 levothyroxine 88 mcg capsule 88 mcg PO ONCE RF: 0 aspirin 325 mg tablet 325 mg PO DAILY RF: 0 metoprolol tartrate 25 mg tablet 37.5 mg PO BID RF: 0 levetiracetam 500 mg Tablet 1,000 mg PO BID RF: 0 Discharge Orders: Discharge Order (Routine); Ordered 05/28/19 Ordered By: Ishmael Espinal Referrals: Fransisca Patel FNP [Primary Care Provider] - 4-7 days Discharge Diet: Advance as tolerated Discharge Activity: Resume usual activity Patient Instructions: Atrial Fibrillation (ED) Discharge Date/Time: 05/28/19 20:30 Coding Level of Care Code ED Real Estate Assistant for Chg Fwd Exam Problem Focused The documentation recorded by the Bill godinez Bridget Annette, accurately reflects the service I personally performed and the decisions made by Kylie montgomery Korby, MD
--- NOTE | 2019-05-28 17:58 | XR_ITS ---
WS: [id number] CHEST XRAY TECHNIQUE: Portable chest. CLINICAL INFORMATION: afib COMPARISON: May 18, 2019 FINDINGS: Heart: Normal cardiac silhouette. Aortic calcification. Lungs: Chronic emphysematous changes. No acute pulmonary infiltrates. No focal pneumonia. Biapical fi brosis. Bones: Osteopenia. XR/XR chest 1V portable [id number] IMPRESSION: No acute chest findings
--- NOTE | 2019-05-28 17:59 | ECG_ITS ---
Measurements Intervals [place] Rate: 113 P: [place]: 0 QRS: -66 QRSD: 99 T: 101 QT: 315 QTc: 433 ATRIAL FIBRILLATION WITH RAPID VENTRICULAR RESPONSE LEFT ANTERIOR FASCICULAR BLOCK [QRS AXIS <= -45, QR IN I, RS IN II] VOLTAGE CRITERIA FOR LVH [MEETS CRITERIA IN ONE OF: R(aVL), S(V1), R(V5), R( (V5/V6)+S(V1)] ST DEVIATION AND MODERATE T-WAVE ABNORMALITY, CONSIDER LATERAL ISCHEMIA [-0.1+ mV mV T WAVE IN I/aVL/V5/V6] Compared to ECG 05/19/2019 03:22:47 T-wave abnormality now present Possible ischemia now present Sinus rhythm no longer present ST (T wave) deviation no longer present Myocardial infarct finding no longer present Electronically Signed On 05-29-2019 9:27:43 COFFEE BAR ATTENDANT by Daniel Dela Cruz M.D. [id number]
[2019-05-28 18:26] VITALS: BP 116/77; PULSE 88; O2SAT 96
[2019-05-28] MEDS: sodium chloride 0.9% 1,000 ML 999 ML IV (18:35)
[2019-05-28 19:04] LABS: Basophils % 0.6 %; Eosinophils # 0.1 10^3/uL (0.0-0.8); Eosinophils % 2.7 %; Hematocrit 36.5 % (37.0-47.0); Hemoglobin 11.5 g/dL (11.5-15.3); Lymphocytes # 1.3 10^3/uL (0.8-4.8); Lymphocytes % 27.7 %; Mean Corpuscular HGB Conc 31.5 g/dL (30.0-36.0); Mean Corpuscular Hemoglobin 28.6 pg (28.0-34.0); Mean Corpuscular Volume 90.8 fL (81-99); Mean Platelet Volume 9.8 fL (7.4-10.4); Monocytes # 0.8 10^3/uL (0.2-0.9); Monocytes % 16.2 %; Neutrophils # 2.5 10^3/uL (1.8-7.7); Neutrophils % 52.2 %; Nucleated Red Blood Cells % 0 %; Platelet Count 230 10^3/cmm (130-400); Red Blood Count 4.02 10^6/uL (4.1-5.3); Red Cell Distribution Width 13.2 % (12.1-15.1); White Blood Count 4.8 10^3/uL (4.0-10.0)
[2019-05-28 19:20] LABS: Alanine Aminotransferase 27 U/L (0-33); Albumin Level 2.9 g/dL (3.5-5.2); Alkaline Phosphatase 94 IU/L (35-105); Anion Gap 13.8 (5-19); Aspartate Amino Transferase 20 U/L (0-32); Blood Urea Nitrogen 15 mg/dL (8-23); Calcium 8.7 mg/dL (8.5-10.5); Carbon Dioxide 21 mmol/L (22-29); Chloride 106 mmol/L (98-107); Globulin 3.2 g/dL (1.3-4.6); Potassium 3.8 mmol/L (3.5-5.1); Sodium 137 mmol/L (136-145); Total Bilirubin 0.2 mg/dL (0.15-1.2); Total Protein 6.1 g/dL (6.6-8.7)
--- NOTE | 2019-05-28 19:25 | PC.NURSE ---
Introduced self to patient and initiated vital signs. Pt is A&O x 4 and agreeable. Pt states that the reason for the ER visit today is due to her history of AFIB and blood pressure issues. Pt states that Metoprolol medication dossage has been changed and she feels that it is dropping her blood pressure too low. Reassured patient of needs and will continue to monitor.
[2019-05-28 20:06] VITALS: BP 112/53; PULSE 73; RESP 16; O2SAT 94
[2019-05-29 09:05] LABS: Glucose 133 mg/dL (65-115)
== END 2019-05-28 20:30 | disposition home or self-care (01) ==
PROVIDERS: Emergency Provider Emergency Medicine; Family Provider Nurse Practitioner; PCP Nurse Practitioner
DX: I48.0 Paroxysmal atrial fibrillation (principal); E78.5 Hyperlipidemia, unspecified; E03.9 Hypothyroidism, unspecified; G40.909 Epilepsy, unspecified, not intractable, without status epilepticus
CPT/HCPCS: 71045; 80053; 85025; 93005; 96360; 99282; 99283; J7030

== ENCOUNTER 2019-06-12 19:43 | Observation (INO) | payer MEDICARE, SELFPAY ==
[2019-06-12] VITALS (7 sets, daily range): BP systolic 105–145; BP diastolic 57–67; PULSE 59–105; RESP 16–18; TEMP 36.3; O2SAT 95–99; BMI 22.1
--- NOTE | 2019-06-12 20:05 | XRR_ITS ---
PROCEDURE INFORMATION: Exam: XR Chest, 1 View Exam date and time: 06/12/2019 8:51 PM Age: 84 years old Clinical indication: Cough; Patient HX: PT was recently discharged from [facility] in [place] TECHNIQUE: Imaging protocol: XR of the chest Views: 1 view. COMPARISON: CR XR chest 1V portable [id number] 05/28/2019 6:19 PM FINDINGS: There is hyperinflation. There is bilateral apical scarring. No infiltrates are present. There is no pleural effusion or pneumothorax. The heart size is normal. XR/XR chest 1V portable [id number] IMPRESSION: 1. Hyperinflation. 2. No infiltrates.
--- NOTE | 2019-06-12 20:06 | ECG_ITS ---
Measurements Intervals [place] Rate: 93 P: NE: 0 QRS: -66 QRSD: 108 T: 96 QT: 380 QTc: 473 ATRIAL FIBRILLATION INCOMPLETE RIGHT BUNDLE BRANCH BLOCK [90+ ms QRS DURATION, TERMINAL R IN V1/V2, 4 40+ ms S IN I/aVL/V4/V5/V6] LEFT ANTERIOR FASCICULAR BLOCK [QRS AXIS <= -45, QR IN I, RS IN II] VOLTAGE CRITERIA FOR LVH [MEETS CRITERIA IN ONE OF: R(aVL), S(V1), R(V5), R(V5 (V5/V6)+S(V1)] POSSIBLE LATERAL MYOCARDIAL INFARCTION , OF INDETERMINATE AGE [30 ms Q WAVE IN I/ I/aVL/V5/V6] Compared to ECG 05/28/2019 18:05:37 There is no significant change Electronically Signed On 06-13-2019 19:03:12 BLANKER OPERATOR by Chicho Aranda M.D. [email or web address]
--- NOTE | 2019-06-12 20:07 | ED_ITS ---
Entered by Narcisa Calderon, acting as scribe for Noris Lamb HPI - Dizziness General: Chief Complaint: Dizziness Stated Complaint: WEAKNESS, NAUSEA Time Seen by Provider: 06/12/19 20:00 Source: patient and EMS Mode of arrival: EMS History of Present Illness: HPI Narrative: 84 y/o female presents to the ED from home with complaint of dizziness and weakness. Pt states she has a hx of Afib and seizures. She does not believe she had a seizure with this episode today but she has had nausea. She has some chest discomfort and rapid palpitations. She has felt near syncopal at times. MD elicited complaint: dizziness and other (nausea, weakness) Onset (ago): day(s) Timing: gradual onset Severity: similar to previous episodes Associated symptoms: Reports chest pain, nausea, palpitations and weakness; Denies change in hearing, chills, diaphoresis, ear discharge, malaise, syncope or vomiting Review of Systems General: Reports: other (negative unless marked) Const: Denies: fever, chills, body aches, fatigue, malaise or diaphoresis Eyes: Denies: change in vision or blurry vision ENMT: Denies: throat pain, painful swallowing, hoarseness, ear pain, ear discharge, Change in hearing or nasal discharge Card: Reports: chest pain, palpitations, irregular heart rhythm, pre-syncope and shortness of breath on exertion; Denies: syncope or shortness of breath when lying down Resp: Denies: shortness of breath, productive cough, non-productive cough, wheezing, coughing up blood or chest congestion GI: Reports: nausea; Denies: abdominal pain, vomiting, vomiting blood, coffee grounds in vomit, diarrhea, constipation, cramping, blood in stool or black tarry stool : Denies: flank pain, painful urination, urinary frequency, urinary urgency, decreased urine ouput, urinary incontinence or blood in urine Musc: Denies: neck pain, back pain, extremity pain, extremity swelling, joint pain, joint swelling, joint warmth or joint stiffness Skin/Breast: Denies: rash, skin tenderness or yellow skin Endo: Denies: excessive thirst, tired all the time, cold intolerance, excessive sweating, flushing or hot flashes Danielito/Lymph: Denies: easy bruising, easy bleeding, petechiae or enlarged lymph nodes All/Imm: Denies: hives, throat swelling, tongue swelling, facial swelling or acute wheezing PFSH ED PFSH: Medical History Brain lesion Chronic atrial fibrillation Hyperlipidemia Hypothyroidism Osteoporosis Seizure disorder -sees Dr. Chao neurosurgery -sees Dr. 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 Vaginal prolapse Surgical History History of bladder surgery History of tonsillectomy History of total hysterectomy Family History Other CAD (coronary artery disease) Social History Smoking and tobacco status: never smoked Alcohol intake: never Household members: family Housing: House Physical Exam Const: COMMON NORMALS: no apparent distress, oriented x3, no limitations, healthy appearing and well nourished EXAM LIMITATIONS: no altered mental status GENERAL APPEARANCE: cooperative, well kempt and well developed ORIENTATION/CONSCIOUSNESS: Yes awake HENMT: COMMON NORMALS: normocephalic, head/scalp atraumatic, hearing grossly normal bilaterally, external ears normal, EAC's normal, external nose normal and moist oral mucous membranes HEAD & SCALP: normal to inspection, normocephalic and atraumatic FACE & SINUS: normal facial exam and face symmetric NOSE: external nose normal and nares normal EXTERNAL EAR: Yes external ears normal EXTERNAL AUDITORY CANAL: EAC's normal MOUTH: oral and palatal mucosa normal and tongue normal Eye: COMMON NORMALS: PERRL, EOMs intact bilaterally, conjunctivae normal and no scleral icterus GENERAL EYE: normal appearance of both eyes and normal light reflex CONJUNCTIVA: Yes conjunctivae normal SCLERA: sclerae normal CORNEA: Yes corneas normal PUPIL: Yes PERRL DIRECT OPHTHALMOSCOPY: Yes normal light reflex Neck/C-Spine: COMMON NORMALS: full ROM, no lymphadenopathy, supple and no meningeal signs GENERAL: Yes normal visual inspection and Yes trachea midline CERVICAL SPINE: Yes cervical ROM normal Chest: COMMONS NORMALS: inspection of chest normal and palpation of chest normal Resp: COMMON NORMALS: normal respiratory effort, no retractions, no use of accessory muscles and clear to auscultation bilaterally EFFORT & INSPECTION: Yes able to speak in complete sentences AUSCULTATION: clear to auscultation bilaterally Cardio: JUGULAR VENOUS DISTENTION: no JVD RATE: tachycardic RHYTHM: abnormal rhythm irregularly irregular GI: COMMON NORMALS: soft to palpation, non-tender, no hepatosplenomegaly and no masses INSPECTION: Yes normal to inspection PALPATION: Yes soft and Yes no hepatosplenomegaly : COMMON NORMALS: Yes no CVA tenderness BLADDER/KIDNEY EXAM: Yes no CVA tenderness Back/Pelvis: COMMON NORMALS: no CVA tenderness, thoracic and lumbar spine normal to inspection, no thoracic nor lumbar tenderness and thoraco-lumbar ROM normal Extremity: COMMON NORMALS: normal to inspection, full ROM, normal capillary refill, no joint enlargement, no clubbing, cyanosis or edema and no calf tenderness Neuro: COMMON NORMALS: oriented x3, CN's II-XII intact bilaterally, moves all extremities, no focal motor deficits and no sensory deficits noted MENINGEAL SIGNS: Yes no meningeal signs Psych: COMMON NORMALS: mental status grossly normal, thought process normal, cooperative, affect normal, speech normal and activity/motor behavior normal APPEARANCE: Yes well kempt SPEECH: Yes normal speech THOUGHT PROCESS: normal thought process Skin: COMMON NORMALS: no rashes or lesions noted, skin turgor normal, no jaundice, no petechiae and no mottling GENERAL SKIN EXAM: no rashes or lesions noted and turgor normal Course Vital Signs: Vital signs: Vital Signs Temperature 97.4 F L 06/12/19 19:56 Pulse Rate 89 06/13/19 01:30 Respiratory Rate 18 06/12/19 21:15 Blood Pressure 115/65 06/13/19 01:30 Pulse Oximetry 90 06/13/19 01:30 MDM - Dizziness MDM Narrative: Medical decision making narrative: Patient comes in with Román sanchez with RVR. She is been started on a Cardizem drip. The case was endorsed to Dr. Moreno she is agreeable to admission. Lab Data: Labs: Lab Results 06/12/19 06/12/19 06/12/19 Range/Units 20:16 20:16 20:16 WBC 7.4 (4.0-10.0) 10^3/ uL RBC 4.62 (4.1-5.3) 10^6/u L Hgb 13.2 (11.5-15.3) g/dL Hct 40.4 (37.0-47.0) % MCV 87.4 (81-99) fL MCH 28.6 (28.0-34.0) pg MCHC 32.7 (30.0-36.0) g/dL RDW 13.2 (12.1-15.1) % Plt Count 283 (130-400) 10^3/c mm MPV 10.6 H (7.4-10.4) fL Neut % (Auto) 57.3 % Lymph % (Auto) 32.3 % [place] % (Auto) 7.7 % Eos % (Auto) 1.9 % Baso % (Auto) 0.5 % Neut # (Auto) 4.3 (1.8-7.7) 10^3/u L Lymph # (Auto) 2.4 (0.8-4.8) 10^3/u L [place] # (Auto) 0.6 (0.2-0.9) 10^3/u L Eos # (Auto) 0.1 (0.0-0.8) 10^3/u L Baso # (Auto) 0.0 (0.0-0.1) 10^3/u L Nucleated RBC % (a uto) 0 % Nucleated RBCs # 0.0 /100WBC PT 13.60 H (10.5-13.3) SECO NDS INR 1.01 (0.8-1.2) Sodium 137 (136-145) mmol/L Potassium 3.5 (3.5-5.1) mmol/L Chloride 101 (98-107) mmol/L Carbon Dioxide 24 (22-29) mmol/L Anion Gap 15.5 (5-19) BUN 15 (8-23) mg/dL Creatinine 0.5 (0.5-0.9) mg/dL Glucose 108 (65-115) mg/dL Calcium 10.0 (8.5-10.5) mg/dL Magnesium 2.2 (1.7-2.3) mg/dL Total Bilirubin 0.2 (0.15-1.2) mg/dL AST 21 (0-32) U/L ALT 12 (0-33) U/L Alkaline Phosphata se 99 (35-105) IU/L Troponin T Baselin e (0-10) ng/mL Troponin T 120 Min [place]agon (0-10) ng/mL Delta Troponin T (0-10) ABS# NT-Pro-B Natriuret Pep 718 H (0-450) pg/mL Total Protein 7.1 (6.6-8.7) g/dL Albumin 3.8 (3.5-5.2) g/dL Globulin 3.3 (1.3-4.6) g/dL Urine Color (Yellow) Urine Appearance (CLEAR) Urine pH (5-7) Ur Specific Gravit y (1.005-1.030) Urine Protein (Negative) Urine Glucose (UA) (Normal) Urine Ketones (Negative) Urine Blood (Negative) Urine Nitrate (Negative) Urine Bilirubin (NEGATIVE) Prot Sulfosalicyli c Acd Urine Urobilinogen (Negative) mg/dL Ur Leukocyte Shae ase (Negative) 06/12/19 06/12/19 06/12/19 Range/Units 20:16 20:40 22:27 WBC (4.0-10.0) 10^3/ uL RBC (4.1-5.3) 10^6/u L Hgb (11.5-15.3) g/dL Hct (37.0-47.0) % MCV (81-99) fL MCH (28.0-34.0) pg MCHC (30.0-36.0) g/dL RDW (12.1-15.1) % Plt Count (130-400) 10^3/c mm MPV (7.4-10.4) fL Neut % (Auto) % Lymph % (Auto) % [place] % (Auto) % Eos % (Auto) % Baso % (Auto) % Neut # (Auto) (1.8-7.7) 10^3/u L Lymph # (Auto) (0.8-4.8) 10^3/u L [place] # (Auto) (0.2-0.9) 10^3/u L Eos # (Auto) (0.0-0.8) 10^3/u L Baso # (Auto) (0.0-0.1) 10^3/u L Nucleated RBC % (a uto) % Nucleated RBCs # /100WBC PT (10.5-13.3) SECO NDS INR (0.8-1.2) Sodium (136-145) mmol/L Potassium (3.5-5.1) mmol/L Chloride (98-107) mmol/L Carbon Dioxide (22-29) mmol/L Anion Gap (5-19) BUN (8-23) mg/dL Creatinine (0.5-0.9) mg/dL Glucose (65-115) mg/dL Calcium (8.5-10.5) mg/dL Magnesium (1.7-2.3) mg/dL Total Bilirubin (0.15-1.2) mg/dL AST (0-32) U/L ALT (0-33) U/L Alkaline Phosphata se (35-105) IU/L Troponin T Baselin e 15 H (0-10) ng/mL Troponin T 120 Min pokagon 14.87 H (0-10) ng/mL Delta Troponin T -0.13 L (0-10) ABS# NT-Pro-B Natriuret Pep (0-450) pg/mL Total Protein (6.6-8.7) g/dL Albumin (3.5-5.2) g/dL Globulin (1.3-4.6) g/dL Urine Color Yellow (Yellow) Urine Appearance Clear (CLEAR) Urine pH 8 H (5-7) Ur Specific Gravit y 1.015 (1.005-1.030) Urine Protein Neg (Negative) Urine Glucose (UA) Norm (Normal) Urine Ketones Negative (Negative) Urine Blood Neg (Negative) Urine Nitrate Negative (Negative) Urine Bilirubin Neg (NEGATIVE) Prot Sulfosalicyli c Acd Negative Urine Urobilinogen Norm (Negative) mg/dL Ur Leukocyte Shae ase Negative (Negative) Imaging Data^: CXR: Radiologist's impression: [address] [address] XRay Report Signed Patient: Trudy Jimenez #: [id number] : 5Acct#:[id number] Age/Sex: 84 / FADM Date: 06/12/19 Loc: ERRoo/Bed: Attending Dr: Ordering Provider/Ordering MD: Noris Lamb DO Date of Service: 06/12/19 Procedure(s): XR chest 1V portable [id number] Accession Number(s): [id number] Report Number: [id number] PROCEDURE INFORMATION: Exam: XR Chest, 1 View Exam date and time: 06/12/2019 8:51 PM Age: 84 years old Clinical indication: Cough; Patient HX: PT was recently discharged from in [place] TECHNIQUE: Imaging protocol: XR of the chest Views: 1 view. COMPARISON: CR XR chest 1V portable [id number] 05/28/2019 6:19 PM FINDINGS: There is hyperinflation. There is bilateral apical scarring. No infiltrates are present. There is no pleural effusion or pneumothorax. The heart size is normal. XR/XR chest 1V portable [id number] IMPRESSION: 1. Hyperinflation. 2. No infiltrates. Dictated By:Nestor Hartmann MD Signed By:Nestor Hartmann MDSigned Date/Time:06/12/192113 Discharge Plan Discharge Patient Disposition: Admitted As Inpatient Admit Provider: Brittnee Moreno Clinical Impression: Paroxysmal atrial fibrillation Condition: Stable Referrals: Fransisca Patel FNP [Primary Care Provider] - Coding Level of Care Code ED Vice Investigator for Chg Fwd Exam Comprehensive The documentation recorded by the Kvng godinez Ashley, accurately reflects the service I personally performed and the decisions made by Zainab montgomery Eli N Jun 12, 2019 19:43
[2019-06-12 20:34] LABS: Basophils % 0.5 %; Eosinophils # 0.1 10^3/uL (0.0-0.8); Eosinophils % 1.9 %; Hematocrit 40.4 % (37.0-47.0); Hemoglobin 13.2 g/dL (11.5-15.3); Lymphocytes # 2.4 10^3/uL (0.8-4.8); Lymphocytes % 32.3 %; Mean Corpuscular HGB Conc 32.7 g/dL (30.0-36.0); Mean Corpuscular Hemoglobin 28.6 pg (28.0-34.0); Mean Corpuscular Volume 87.4 fL (81-99); Mean Platelet Volume 10.6 fL (7.4-10.4); Monocytes # 0.6 10^3/uL (0.2-0.9); Monocytes % 7.7 %; Neutrophils # 4.3 10^3/uL (1.8-7.7); Neutrophils % 57.3 %; Nucleated Red Blood Cells % 0 %; Platelet Count 283 10^3/cmm (130-400); Red Blood Count 4.62 10^6/uL (4.1-5.3); Red Cell Distribution Width 13.2 % (12.1-15.1); White Blood Count 7.4 10^3/uL (4.0-10.0)
[2019-06-12] MEDS: sodium chloride 0.9% 1,000 ML 100 ML IV (20:35)
[2019-06-12] MEDS: ondansetron 2 mg/ML SDV 2 mL 4 MG IVP (20:35)
[2019-06-12 20:39] LABS: INR 1.01 (0.8-1.2)
[2019-06-12 20:46] LABS: Bilirubin Urine Neg (NEGATIVE); Blood Urine Neg (Negative); Glucose Urine UA Norm (Normal); Ketones Urine Negative (Negative); Leukocyte Esterase Urine Negative (Negative); Nitrate Urine Negative (Negative); Protein Urine Neg (Negative); Specific Gravity, Urine 1.015 (1.005-1.030); Sulfosalicylic Acid Urine Negative; Urine Appearance Clear (CLEAR); Urine Color Yellow (Yellow); Urobilinogen Urine Norm (Negative); pH Urine 8 (5-7)
[2019-06-12 20:47] LABS: Add Urine Culture? No
[2019-06-12 20:50] LABS: Troponin(5th) Baseline 15 ng/mL (0-10)
[2019-06-12 20:57] LABS: Alanine Aminotransferase 12 U/L (0-33); Albumin Level 3.8 g/dL (3.5-5.2); Alkaline Phosphatase 99 IU/L (35-105); Anion Gap 15.5 (5-19); Aspartate Amino Transferase 21 U/L (0-32); Blood Urea Nitrogen 15 mg/dL (8-23); Carbon Dioxide 24 mmol/L (22-29); Chloride 101 mmol/L (98-107); Globulin 3.3 g/dL (1.3-4.6); Glucose 108 mg/dL (65-115); Magnesium 2.2 mg/dL (1.7-2.3); NT Pro B Type Natriuretic Pept 718 pg/mL (0-450); Potassium 3.5 mmol/L (3.5-5.1); Sodium 137 mmol/L (136-145); Total Bilirubin 0.2 mg/dL (0.15-1.2); Total Protein 7.1 g/dL (6.6-8.7)
--- NOTE | 2019-06-12 22:06 | ECG_ITS ---
Measurements Intervals [place] Rate: 88 P: [place]: 0 QRS: -64 QRSD: 113 T: 98 QT: 364 QTc: 441 ATRIAL FIBRILLATION INCOMPLETE RIGHT BUNDLE BRANCH BLOCK [90+ ms QRS DURATION, TERMINAL R IN V1/V2, 4 40+ ms S IN I/aVL/V4/V5/V6] LEFT ANTERIOR FASCICULAR BLOCK [QRS AXIS <= -45, QR IN I, RS IN II] VOLTAGE CRITERIA FOR LVH [MEETS CRITERIA IN ONE OF: R(aVL), S(V1), R(V5), R(V5/ (V5/V6)+S(V1)] POSSIBLE SEPTAL MYOCARDIAL INFARCTION , OF INDETERMINATE AGE [30 ms Q WAVE IN V1/ V1/V2] POSSIBLE LATERAL MYOCARDIAL INFARCTION , OF INDETERMINATE AGE [30 ms Q WAVE IN I/ I/aVL/V5/V6] Compared to ECG 05/28/2019 18:05:37 There is no significant change Electronically Signed On 06-13-2019 19:09:01 AUTO FLEET MAINTENANCE MANAGER by Chicho Aranda M.D. [id number]
[2019-06-12 22:50] LABS: Troponin 5 2HR 14.87 ng/mL (0-10)
[2019-06-12 22:55] LABS: Troponin 5 2HR Delta -0.13 ABS# (0-10)
[2019-06-13] VITALS (22 sets, daily range): BP systolic 95–127; BP diastolic 42–75; PULSE 66–132; RESP 16–24; TEMP 36.6–37; O2SAT 90–98
--- NOTE | 2019-06-13 01:37 | PM.HP ---
Providers/Chief Complaint Admitting Physician: Brittnee Moreno MD Primary Care Provider: MABEL Allison Chief Complaint: WEAKNESS, NAUSEA History of Present Illness Trudy Jimenez is a 84 year old female with past medical history of chronic atrial fibrillation recently restarted on Eliquis, concerns of recurrent seizures, brain lesion of unclear cause, CVA in the past, came in with chief complaint of palpitations. She has had multiple admissions this year with similar complaints and found to be in A fib with RVR. Most recently she was discharged on 05/19/[address] [facility] in [place] where she underwent 24 hr EEG monitoring, however doesnt know the results. Recently a 21 day event monitor was placed, on 06/04 results of this testing showed baseline rhythm to be sinus bradycardia with episodes of premature atrial contractions, short runs of paroxysmal atrial tachycardia and episodes of atrial fibrillation with rapid ventricular rate were noted. No significant pauses were noted. She returns today with c/o palpitations, dizziness and weakness and is found to have A fib with RVR. HR has been ranging between 70-139, she has been started on cardizem infusion, currently running at 5mg/hr. Due to concern for orthostatic hypotension, she is additionally on IVF @ 100cc/hr. Troponin is 15--> 14.87, negative delta. Review of Systems General: Reports: 10 or more systems reviewed and unremarkable except in HPI and below Const: Denies: fever, chills or body aches Eyes: Denies: change in vision, blurry vision or photophobia ENMT: Reports: hoarseness; Denies: throat pain, enlarged tonsils, painful swallowing or nasal congestion Card: Reports: palpitations, irregular heart rhythm, lightheadedness and pre-syncope; Denies: chest pain, edema, swelling of feet/ankles, shortness of breath on exertion or shortness of breath when lying down Resp: Denies: shortness of breath, productive cough, non-productive cough, wheezing, stridor, pain on inspiration, change in phlegm color, coughing up blood or chest congestion GI: Denies: abdominal pain, nausea, vomiting, vomiting blood, coffee grounds in vomit, difficulty swallowing, heartburn/indigestion, diarrhea, constipation, cramping, change in stool character, blood in stool or black tarry stool : Denies: flank pain, difficulty urinating, painful urination, urinary frequency, urinary urgency, urinary hesitancy or blood in urine Musc: Denies: neck pain, back pain, extremity pain, joint swelling, joint warmth or deformity Neuro: Denies: headache, numbness in extremities, weakness in extremities, changes in sensation, difficulty walking, frequent falls, dizziness, vertigo, behavioral changes, slurred speech or seizure-like activity Psych: Denies: anxiety, depression, suicidal ideation or homicidal ideation Endo: Denies: excessive urination, excessive thirst, tired all the time, cold intolerance or hot flashes Danielito/Lymph: Denies: easy bruising or easy bleeding Medications/Allergies Home Medications Medication Instructions Recorded Confirmed Last Taken Type apixaban [Eliquis] 2.5 mg PO BID 06/12/19 06/12/19 Unknown History levetiracetam 1,000 mg PO BID 06/12/19 06/12/19 Unknown History levothyroxine 88 mcg PO DAILY 06/12/19 06/12/19 Unknown History metoprolol tartrate 25 mg PO BID 06/12/19 06/12/19 Unknown History Allergies Allergy/AdvReac Type Severity Reaction Status Date / Time Iodinated Contrast Media Allergy anaphylaxis Verified 05/28/19 18:04 Penicillins Allergy anaphylaxis Verified 05/28/19 18:04 Sulfa (Sulfonamide Allergy headache Verified 05/28/19 18:04 Antibiotics) PFSH Acute PFSH: Medical History Brain lesion Chronic atrial fibrillation Hyperlipidemia Hypothyroidism Osteoporosis Seizure disorder -sees Dr. Chao neurosurgery -sees Dr. 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 Vaginal prolapse Surgical History History of bladder surgery History of tonsillectomy History of total hysterectomy Family History Other CAD (coronary artery disease) Social History Smoking and tobacco status: never smoked Alcohol intake: never Household members: family Housing: House Vitals/I&O/Wt Last Vital Signs Temp 97.4 F L 06/12/19 19:56 Pulse 89 06/13/19 01:30 Resp 18 06/12/19 21:15 BP 115/65 06/13/19 01:30 Pulse Ox 90 06/13/19 01:30 Weight last 48 hrs Weight 60.328 kg Physical Exam Narrative: EXAM NARRATIVE: GEN: Awake, alert and oriented, no acute distress CVS: S1S2 N RS: CTA B/L Abd: Soft, nt/nd , bs+ DYNAMITE CARTRIDGE CRIMPER: no focal neuro deficits Data : 06/12/19 20:16 06/12/19 20:16 A&P Assessment and plan (1) Paroxysmal atrial fibrillation: Admit to CSU for observation Continue cardizem infusion and titrate to keep HR 70-110 Orthostatic vital signs Will continue home dose of B blockers Currently on eliquis after recent admission at [facility]. Patient does not know why her anticoagulation was resumed after being off for all this time due to high bleeding risk. Aspirin 325 has been since discontinued. I am unable to see any records from the recent admission at [facility]. Status: Acute Code(s): I48.0 - Paroxysmal atrial fibrillation Attestations Medical Necessity Statement*: Anticipate <2MN admission for rate control for A fib Coding Level of Care Code Acute Multiple Knife Edge Trimmer Operator for Chg Fwd Diagnoses Paroxysmal atrial fibrillation I48.0
--- NOTE | 2019-06-13 02:06 | ECG_ITS ---
Measurements Intervals [place] Rate: 79 P: [place]: 0 QRS: -64 QRSD: 114 T: 97 QT: 370 QTc: 424 ATRIAL FIBRILLATION INCOMPLETE RIGHT BUNDLE BRANCH BLOCK [90+ ms QRS DURATION, TERMINAL R IN V1/V2, 40+ ms S IN I/aVL/V4/V5/V6] LEFT ANTERIOR FASCICULAR BLOCK [QRS AXIS <= -45, QR IN I, RS IN II] VOLTAGE CRITERIA FOR LVH [MEETS CRITERIA IN ONE OF: R(aVL), S(V1), R(V5), R (V5/V6)+S(V1)] POSSIBLE LATERAL MYOCARDIAL INFARCTION [30 ms Q WAVE IN I/aVL/V5/V6], OF INDETERMINATE AGE Compared to ECG 05/28/2019 18:05:37 Incomplete right bundle-branch block now present Myocardial infarct finding now present T-wave abnormality no longer present Possible ischemia no longer present Electronically Signed On 06-13-2019 19:09:26 VP [employer] by Chicho Aranda M.D. [id number]
[2019-06-13 02:21] LABS: Troponin 5 6HR 13.84 ng/mL (0-10)
--- NOTE | 2019-06-13 02:37 | PC.NURSE ---
Assisted patient in bed by changing her brief and maurice. Patient was also dirty and had dried fecal matter on her pubic hairs. I cleaned up the fecal matter and once cleaned and new bief had been placed I got a new warm blanket to help her be more comfortable. Patient is now resting comfortably.
[2019-06-13 02:50] LABS: Troponin 5 6HR Delta -1.16 ng/L (0-12)
--- NOTE | 2019-06-13 02:59 | PC.NURSE ---
Seizure precautions have been placed, both rails are up and padded with seizure pads. Patient requested a walker to help to the bed side commode when she is needing to and a hat has been placed in her bedside commode to measure output. Call light has been placed within reach of patient and has been informed to call when she needs to use the restroom.
--- NOTE | 2019-06-13 03:50 | PC.NURSE ---
At 0222 third EKG was done and shown to ER doctor
[2019-06-13 04:23] LABS: Basophils % 0.3 %; Eosinophils # 0.1 10^3/uL (0.0-0.8); Eosinophils % 1.3 %; Hematocrit 37.1 % (37.0-47.0); Lymphocytes # 1.7 10^3/uL (0.8-4.8); Lymphocytes % 26.1 %; Mean Corpuscular HGB Conc 32.3 g/dL (30.0-36.0); Mean Corpuscular Hemoglobin 28.1 pg (28.0-34.0); Mean Corpuscular Volume 86.9 fL (81-99); Mean Platelet Volume 9.6 fL (7.4-10.4); Monocytes # 0.6 10^3/uL (0.2-0.9); Monocytes % 9.9 %; Neutrophils % 62.1 %; Nucleated Red Blood Cells % 0 %; Platelet Count 259 10^3/cmm (130-400); Red Blood Count 4.27 10^6/uL (4.1-5.3); Red Cell Distribution Width 13.2 % (12.1-15.1); White Blood Count 6.4 10^3/uL (4.0-10.0)
--- NOTE | 2019-06-13 04:36 | PC.NURSE ---
output is 200ml and intake is 60ml of a 8oz water
[2019-06-13 04:49] LABS: Anion Gap 14.2 (5-19); Blood Urea Nitrogen 12 mg/dL (8-23); Calcium 9.4 mg/dL (8.5-10.5); Carbon Dioxide 25 mmol/L (22-29); Chloride 108 mmol/L (98-107); Glucose 119 mg/dL (65-115); Osmolality Calculated 293 mOsm/kg (285-295); Potassium 4.2 mmol/L (3.5-5.1); Sodium 143 mmol/L (136-145)
[2019-06-13] MEDS: metoprolol tartrate 25 mg Tablet PO ×2 (07:51→18:20)
--- NOTE | 2019-06-13 07:54 | PC.NURSE ---
Verbal order from Dr. Espinal to stop the cardizem drip, and give metoprolol. B/P 103/50, HR 74.
[2019-06-13] MEDS: levothyroxine 88 mcg Tablet PO (08:50)
[2019-06-13] MEDS: atorvastatin 40 mg Tablet PO (08:50)
[2019-06-13] MEDS: apixaban 5 mg Tablet 2.5 MG PO ×2 (08:50→18:19)
[2019-06-13] MEDS: levETIRAcetam 500 mg Tablet 1000 MG PO ×2 (08:50→18:19)
--- NOTE | 2019-06-13 10:33 | PM.DCS ---
Discharge Providers Date of Discharge: June 13, 2019 Primary Care Provider: MABEL Allison Diagnoses at Discharge Discharge Diagnosis (1) Paroxysmal atrial fibrillation: Status: Acute Reason for Visit Reason for Visit: Reason For Visit: WEAKNESS, NAUSEA Hospital Course Discharge Summary: Trudy Jimenez is a 84 year old female with past medical history of chronic atrial fibrillation recently restarted on Eliquis, concerns of recurrent seizures, brain lesion of unclear cause, CVA in the past, came in with chief complaint of palpitations. She has had multiple admissions this year with similar complaints and found to be in A fib with RVR. Most recently she was discharged on 05/19/19 to [facility] in [place] where she underwent 24 hr EEG monitoring, however doesnt know the results. Recently a 21 day event monitor was placed, on 06/04 results of this testing showed baseline rhythm to be sinus bradycardia with episodes of premature atrial contractions, short runs of paroxysmal atrial tachycardia and episodes of atrial fibrillation with rapid ventricular rate were noted. No significant pauses were noted. She presented to the ER on June 13 with c/o palpitations, dizziness and weakness and is found to have A fib with RVR. HR has been ranging between 70-139, she has been started on cardizem infusion, currently running at 5mg/hr. Due to concern for orthostatic hypotension, she is additionally on IVF @ 100cc/hr. Troponin is 15--> 14.87, negative delta. Cardizem infusion was switched off by the morning as her heart rate had settled between 70s to 90s. Patient continued to be orthostatic so she was treated with IV hydration. She was continued on her home medications and she was in sinus rhythm on the day of discharge. Patient is being discharged in hemodynamically stable condition with advice to improve her oral intake. Patient at home usually skips a dose of metoprolol if her blood pressures are on the lower side. Patient has been advised not to skip any metoprolol dose rather if her systolic blood pressures are around 100 then to take 25 mg or if her blood pressure is in 90s systolic then to take 12.5 dose to avoid reactionary tachycardia. Physical Exam Narrative: EXAM NARRATIVE: General: No acute distress, AO x3, dehydrated HEENT: PERRLA, pupils bilaterally equal and reactive Chest: Normal vesicular breath sounds, no added sounds, equal good air entry bilaterally CVS: S1-S2 irregularly irregular, no murmurs, no tachycardia, no gallops, no rubs Abdomen: Soft, nontender, no organomegaly, bowel sounds present Neuro: No focal deficits, no facial deformity, AO x3, power 5/5 in all limbs Discharge Data Data Completed and Pending: Completed Studies During Hospitalization Category Date Time Status XR chest 1V lyn ble [id number] Stat Exams 06/12/19 20:05 Completed Pending at discharge Category Date Time Status Basic Metabolic P gordon AM LABS Lab 06/14/19 04:00 Ordered Complete Blood Co unt w/Auto AM LABS Lab 06/14/19 04:00 Ordered Complete Blood Co unt w/Auto AM LABS Lab 06/15/19 04:00 Ordered Complete Blood Co unt w/Auto AM LABS Lab 06/16/19 04:00 Ordered Labs from last 24 hours 06/13/19 06/13/19 06/13/19 04:15 04:15 02:00 WBC 6.4 RBC 4.27 Hgb 12.0 Hct 37.1 MCV 86.9 MCH 28.1 MCHC 32.3 RDW 13.2 Plt Count 259 MPV 9.6 Neut % (Auto) 62.1 Lymph % (Auto) 26.1 [place] % (Auto) 9.9 Eos % (Auto) 1.3 Baso % (Auto) 0.3 Neut # (Auto) 4.0 Lymph # (Auto) 1.7 [place] # (Auto) 0.6 Eos # (Auto) 0.1 Baso # (Auto) 0.0 Nucleated RBC % (a uto) 0 Nucleated RBCs # 0.0 PT INR Sodium 143 Potassium 4.2 Chloride 108 H Carbon Dioxide 25 Anion Gap 14.2 BUN 12 Creatinine 0.6 Glucose 119 H Calculated Osmolal ity 293 Calcium 9.4 Magnesium Total Bilirubin AST ALT Alkaline Phosphata se Troponin I 6 Hour 13.84 H Troponin I Hi Sens Del -1.16 L Troponin T Baselin e Troponin T 120 Min [place] Troponin T NT-Pro-B Natriuret Pep Total Protein Albumin Globulin Urine Color Urine Appearance Urine pH Ur Specific Gravit y Urine Protein Urine Glucose (UA) Urine Ketones Urine Blood Urine Nitrate Urine Bilirubin Prot Sulfosalicyli c Acd Urine Urobilinogen Ur Leukocyte Shae ase 06/12/19 06/12/19 06/12/19 22:27 20:40 20:16 WBC RBC Hgb Hct MCV MCH MCHC RDW Plt Count MPV Neut % (Auto) Lymph % (Auto) [place] % (Auto) Eos % (Auto) Baso % (Auto) Neut # (Auto) Lymph # (Auto) [place] # (Auto) Eos # (Auto) Baso # (Auto) Nucleated RBC % (a uto) Nucleated RBCs # PT INR Sodium Potassium Chloride Carbon Dioxide Anion Gap BUN Creatinine Glucose Calculated Osmolal ity Calcium Magnesium Total Bilirubin AST ALT Alkaline Phosphata se Troponin I 6 Hour Troponin I Hi Sens Del Troponin T Baselin e 15 H Troponin T 120 Min [place] 14.87 H Delta Troponin T -0.13 L NT-Pro-B Natriuret Pep Total Protein Albumin Globulin Urine Color Yellow Urine Appearance Clear Urine pH 8 H Ur Specific Gravit y 1.015 Urine Protein Neg Urine Glucose (UA) Norm Urine Ketones Negative Urine Blood Neg Urine Nitrate Negative Urine Bilirubin Neg Prot Sulfosalicyli c Acd Negative Urine Urobilinogen Norm Ur Leukocyte Shae ase Negative 06/12/19 06/12/19 06/12/19 20:16 20:16 20:16 WBC 7.4 RBC 4.62 Hgb 13.2 Hct 40.4 MCV 87.4 MCH 28.6 MCHC 32.7 RDW 13.2 Plt Count 283 MPV 10.6 H Neut % (Auto) 57.3 Lymph % (Auto) 32.3 [place] % (Auto) 7.7 Eos % (Auto) 1.9 Baso % (Auto) 0.5 Neut # (Auto) 4.3 Lymph # (Auto) 2.4 [place] # (Auto) 0.6 Eos # (Auto) 0.1 Baso # (Auto) 0.0 Nucleated RBC % (a uto) 0 Nucleated RBCs # 0.0 PT 13.60 H INR 1.01 Sodium 137 Potassium 3.5 Chloride 101 Carbon Dioxide 24 Anion Gap 15.5 BUN 15 Creatinine 0.5 Glucose 108 Calculated Osmolal ity Calcium 10.0 Magnesium 2.2 Total Bilirubin 0.2 AST 21 ALT 12 Alkaline Phosphata se 99 Troponin I 6 Hour Troponin I Hi Sens Del Troponin T Baselin e Troponin T 120 Min [place] Troponin T NT-Pro-B Natriuret Pep 718 H Total Protein 7.1 Albumin 3.8 Globulin 3.3 Urine Color Urine Appearance Urine pH Ur Specific Gravit y Urine Protein Urine Glucose (UA) Urine Ketones Urine Blood Urine Nitrate Urine Bilirubin Prot Sulfosalicyli c Acd Urine Urobilinogen Ur Leukocyte Shae ase Vitals: Last Vital Signs Temp 97.4 F L 06/12/19 19:56 Pulse 75 06/13/19 08:00 Resp 18 06/13/19 02:42 BP 103/50 06/13/19 08:00 Pulse Ox 96 06/13/19 08:00 Discharge Plan Discharge Patient Disposition: Home, Self-Care Condition: Stable Prescriptions: New Flonase Sensimist 27.5 mcg/actuation spray,suspension 1 spray INTRANASAL DAILY Qty: 47.4 RF: 0 benzonatate [Tessalon Perles] 100 mg capsule 100 mg PO TID PRN (Reason: cough) Qty: 20 RF: 0 Continued atorvastatin 40 mg tablet 40 mg PO DAILY RF: 0 metoprolol tartrate 25 mg tablet 37.5 mg PO BID RF: 0 levothyroxine 88 mcg tablet 88 mcg PO DAILY RF: 0 Discontinued levetiracetam 500 mg tablet 1,000 mg PO BID RF: 0 Eliquis 2.5 mg tablet 2.5 mg PO BID RF: 0 Discharge Orders: Discharge Order (Routine); Ordered 06/14/19 Ordered By: Cruz Cooper Referrals: Fransisca Patel FNP [Primary Care Provider] - 2 weeks Discharge Diet: Regular Discharge Activity: Resume usual activity Activity Restrictions/Additional Instructions: Take metoprolol 37.5 twice daily as prescribed by Dr. Aranda. Even if the blood pressures are low do not skip metoprolol but take a lower dose. When the blood pressures are around 100 systolic can take metoprolol 25 mg rather than 37.5 mg. Discharge Attestations Time Spent in Discharge Care*: less than 30 min Status at Discharge: Cognitive status at discharge: cognitively intact, Behavioral status at discharge: cooperative, Quality Metrics Clinical Quality Measures During this hospital stay, did patient experience: None Coding Level of Care Code Acute Gmat Instructor for Homerg Fwd Diagnoses Paroxysmal atrial fibrillation I48.0
--- NOTE | 2019-06-13 11:20 | PC.NURSE ---
Report received from Reji in ER. Awaiting patient's arrival.
--- NOTE | 2019-06-13 12:07 | PC.NURSE ---
Patient into room and settled. Denies pain at present time. Occasional wet cough noted. Sitting up feeding self lunch at present time. A&O. Calm, pleasant, and cooperative.
--- NOTE | 2019-06-13 12:19 | PC.NURSE ---
Patient's daughter to bedside.
--- NOTE | 2019-06-13 12:30 | PC.NURSE ---
Patient and family are not sure if patient has a living will or advance directives but state she does have one or the other. Will clarify.
[2019-06-13] MEDS: sodium chloride 0.9% 1,000 ML 75 ML IV (13:44)
--- NOTE | 2019-06-13 13:44 | PM.PN ---
Subjective Subjective: Interval history: Patient admitted overnight. This morning seen in the ER around 11 AM. H&P and labs noted. On evaluation patient does not atrial fibrillation but rate controlled between 60s to 80s beats per minute. I have asked of signs of Cardizem only in the morning at 8 AM. Patient has remained rate controlled since then. She denies of having any nausea, vomiting, headache, dizziness, palpitations but does complain of feeling tired and weak. She is at home in [place] responded on and she has to live with her children but she prefers to live alone. Vitals/I&O/Wt Last Vital Signs Temp 98.6 F 06/13/19 12:00 Pulse 76 06/13/19 12:00 Resp 18 06/13/19 12:00 BP 101/75 06/13/19 12:00 Pulse Ox 95 06/13/19 12:00 06/12/19 06/13/19 06/13/19 22:59 06:59 14:59 Intake Total 1000 / 1000 45.5 / 45.5 Balance 1000 / 1000 45.5 / 45.5 Weight last 48 hrs Weight 60.328 kg Physical Exam Narrative: EXAM NARRATIVE: General: No acute distress, AO x3, dehydrated HEENT: PERRLA, pupils bilaterally equal and reactive Chest: Normal vesicular breath sounds, no added sounds, equal good air entry bilaterally CVS: S1-S2 irregularly irregular, no murmurs, no tachycardia, no gallops, no rubs Abdomen: Soft, nontender, no organomegaly, bowel sounds present Neuro: No focal deficits, no facial deformity, AO x3, power 5/5 in all limbs Data : 06/13/19 04:15 06/13/19 04:15 A&P Assessment and plan (1) Paroxysmal atrial fibrillation: Status: Acute Code(s): I48.0 - Paroxysmal atrial fibrillation Additional A&P Information Transfer to CSU when bed available. Atrial fibrillation: Was in rapid ventricular response when patient came to the ER but now rate controlled. Cardizem was discontinued earlier in the morning. Continue with home dose of Lopressor at 37.5 mg twice daily. Pt states that her dose was increased to 50 mg BID by her sales representative in [place] but since then Dr. Aranda had decreased the dose to 37.5 mg BID due to low BP. C/w Eliquis at 2.5 mg BID. She states it has been approved by her neurologist and neuroSx. Check ortho static again. Can D/c later in the day if BP remains stable. Pt appears dehydrated. C/w IVF- NS @ 75 cc/hr Check TSH C/w home dose of Keppra , levothyroxine and statin. Pt is off ASA as per her caregiver. FC Cardiac diet Attestations Medical Necessity Statement*: Afib and dehydration Time Spent in Patient Care: Greater than 35 minutes Coding Level of Care Code Acute Geothermal Plant Manager for Homerg Fwd Diagnoses Paroxysmal atrial fibrillation I48.0
--- NOTE | 2019-06-13 16:14 | PC.NURSE ---
Report given to nurse Юлия rn.
[2019-06-14] VITALS: BP 145/58; PULSE 61; RESP 18; TEMP 36.8; O2SAT 94
[2019-06-14] MEDS: sodium chloride 0.9% 1,000 ML 75 ML IV (02:01)
[2019-06-14 04:00] VITALS: BP 150/63; PULSE 63; RESP 24; TEMP 36.4; O2SAT 95
[2019-06-14 04:12] LABS: Basophils % 0.4 %; Eosinophils # 0.2 10^3/uL (0.0-0.8); Eosinophils % 2.9 %; Hematocrit 35.5 % (37.0-47.0); Hemoglobin 11.3 g/dL (11.5-15.3); Lymphocytes # 1.5 10^3/uL (0.8-4.8); Lymphocytes % 29.6 %; Mean Corpuscular HGB Conc 31.8 g/dL (30.0-36.0); Mean Corpuscular Hemoglobin 28.5 pg (28.0-34.0); Mean Corpuscular Volume 89.4 fL (81-99); Mean Platelet Volume 10.1 fL (7.4-10.4); Monocytes # 0.4 10^3/uL (0.2-0.9); Neutrophils % 58.5 %; Nucleated Red Blood Cells % 0 %; Platelet Count 217 10^3/cmm (130-400); Red Blood Count 3.97 10^6/uL (4.1-5.3); Red Cell Distribution Width 13.2 % (12.1-15.1); White Blood Count 5.1 10^3/uL (4.0-10.0)
[2019-06-14 04:21] LABS: Blood Urea Nitrogen 13 mg/dL (8-23); Calcium 9.3 mg/dL (8.5-10.5); Carbon Dioxide 23 mmol/L (22-29); Chloride 109 mmol/L (98-107); Glucose 91 mg/dL (65-115); Osmolality Calculated 286 mOsm/kg (285-295); Sodium 140 mmol/L (136-145)
[2019-06-14 04:26] LABS: Thyroid Stimulating Hormone 0.35 uIU/mL (0.27-4.20)
[2019-06-14 07:53] VITALS: BP 161/58; PULSE 63; RESP 18; O2SAT 96
[2019-06-14] MEDS: levETIRAcetam 500 mg Tablet 1000 MG PO (09:33)
[2019-06-14] MEDS: metoprolol tartrate 25 mg Tablet PO (09:33)
[2019-06-14] MEDS: atorvastatin 40 mg Tablet PO (09:33)
[2019-06-14] MEDS: levothyroxine 88 mcg Tablet PO (09:33)
[2019-06-14] MEDS: apixaban 5 mg Tablet 2.5 MG PO (09:33)
[2019-06-14 10:04] VITALS: BP 161/58; PULSE 63; RESP 18; O2SAT 96
--- NOTE | 2019-06-14 10:11 | PC.CHAP ---
Pastoral Care Encounter/Spiritual Assessment Type of Contact [] Declined snow groomer visit [] Patient/Family/Request visit [] Outpatient visit [] Follow-up visit [] Physician referral [] Code/Alert [x] Routine visit [] Staff referral [] Actively dying [] Patient sleeping [] Family support [] [] Out of room [] Palliative care [] [] Receiving care in room [] Pre-surgical visit [] Trauma [] Long length of stay [] ICU visit [] Other: Relational/Emotional Strength [] Patient feels connected with others/family/visitors/staff [] Distress [] Loneliness/isolation [] Abandonment Spirituality of Patient [x] Person of [place] [] Attends Sikh of their [place] [x] Believes in Prayer [] Reads Bible or Latter-Day materials [] There are Spiritual issues to be addressed Director Of Research Interventions [x] Prayer [] Active listening [] Non-anxious presence [] Spiritual/emotional support [] Crisis/trauma care [] Spiritual counseling [] Bereavement support [] Provided bereavement packet [] Provided Bible/devotional materials [] Provided toy/stuffed animal, coloring book to patient or family member [] Provided Communion [] Anointing/Estill [] Salvation [x] Completed spiritual assessment [] Other: Impact on Illness or Injury [] Angry [] Fearful [] Anxious [] Often cries [] Exhaustion [] Unable to work [] Unable to attend mandaeism [] Unable to walk/stand [] Unable to read [] Unable to drive [] Unable to eat/drink [] Unable to sleep [] Unable to be with family [] Patient intubated [] Other: Summary [place] knows patient from prior visits. Patient getting ready to go home. Time spent with patient 10min
== END 2019-06-14 10:45 | disposition home or self-care (01) ==
LOC: ER 06-13 10:39 → CSU 06-14 07:24
PROVIDERS: Student in an Organized Health Care Education/Training Program; Admitting Provider Student in an Organized Health Care Education/Training Program; Emergency Provider Emergency Medicine; Family Provider Nurse Practitioner; PCP Nurse Practitioner; Visit Provider Student in an Organized Health Care Education/Training Program
DX: I48.0 Paroxysmal atrial fibrillation (principal); Z79.01 Long term (current) use of anticoagulants; Z86.73 Personal history of transient ischemic attack (TIA), and cerebral infarction without residual deficits; E78.5 Hyperlipidemia, unspecified; M81.0 Age-related osteoporosis without current pathological fracture; Z82.49 Family history of ischemic heart disease and other diseases of the circulatory system; E86.0 Dehydration
CPT/HCPCS: 12345; 36415; 71045; 80048; 80053; 81001; 83735; 83880; 84443; 84484; 85025; 85610; 93005; 96365; 96366; 96375; 99284; 99285; A9270; G0378; J2405; J3490; J7030

== ENCOUNTER → 2020-06-01 10:08 | Outpatient (BNVA) | payer MEDICARE, SELFPAY | PROVIDERS: Family Provider Nurse Practitioner; PCP Nurse Practitioner; Visit Provider Family Medicine | DX: E78.5 Hyperlipidemia, unspecified (principal); E03.9 Hypothyroidism, unspecified; E78.2 Mixed hyperlipidemia; I48.0 Paroxysmal atrial fibrillation; Z68.1 Body mass index [BMI] 19.9 or less, adult | CPT/HCPCS: 80053; 80061; 84443; 85025 ==

== ENCOUNTER → 2020-07-22 13:43 | Outpatient (BNVA) | payer MEDICARE, SELFPAY | PROVIDERS: Family Provider Nurse Practitioner; PCP Family Medicine; Visit Provider Family Medicine | DX: E03.9 Hypothyroidism, unspecified (principal) | CPT/HCPCS: 84443 ==

== ENCOUNTER → 2020-09-29 11:16 | Outpatient (BNVA) | payer MEDICARE, SELFPAY | PROVIDERS: Family Provider Nurse Practitioner; PCP Family Medicine; Visit Provider Family Medicine | DX: E03.9 Hypothyroidism, unspecified (principal) | CPT/HCPCS: 84443 ==

== ENCOUNTER 2020-11-24 18:23 | Inpatient (IN) | payer MEDICARE, SELFPAY ==
[2020-11-24] VITALS (7 sets, daily range): BP systolic 107–125; BP diastolic 47–56; PULSE 79–108; RESP 17–26; TEMP 37.2; O2SAT 86–95
--- NOTE | 2020-11-24 18:30 | XRR_ITS ---
PROCEDURE INFORMATION: Exam: XR Chest Exam date and time: 11/24/2020 6:30 PM Age: 85 years old Clinical indication: Other: Weak; Prior surgery; Surgery date: 6+ months; Surgery type: Open heart; Additional info: Weakness TECHNIQUE: Imaging protocol: XR of the chest. Views: 1 view. COMPARISON: CR XR chest 1V portable [id number] 06/12/2019 8:39 PM FINDINGS: Lungs: Lungs are clear bilaterally. Pleural spaces: Right apical pleural thickening. No pleural effusion. No pneumothorax. Heart/Mediastinum: Stable mild enlargement of the cardiac silhouette. Mediastinal contours are unremarkable. Vasculature: Stable vascular calcifications in the aorta. Bones/joints: Bones are diffusely osteopenic. Degenerative changes in the spine and shoulders. XR/XR chest 1V portable [id number] IMPRESSION: 1. No acute cardiopulmonary process. 2. Incidental/nonacute findings are listed in the report.
--- NOTE | 2020-11-24 18:31 | ECG_ITS ---
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 Measurements Intervals [place] Rate: 67 P: 64 MT: 174 QRS: -60 QRSD: 113 T: 117 QT: 392 QTc: 415 Interpretive Statements SINUS RHYTHM WITH OCCASIONAL SUPRAVENTRICULAR PREMATURE COMPLEXES POSSIBLE LEFT ATRIAL ENLARGEMENT [-0.1mV P WAVE IN V1/V2] LEFT ANTERIOR FASCICULAR BLOCK [QRS AXIS <= -45, QR IN I, RS IN II] LEFT VENTRICULAR HYPERTROPHY AND ST-T CHANGE [VOLTAGE CRITERIA PLUS ST/T ABNORMALITY] POSSIBLE LATERAL MYOCARDIAL INFARCTION [30 ms Q WAVE IN I/aVL/V5/V6], OF INDETERMINATE AGE Compared to ECG 06/13/2019 02:22:34 ST (T wave) deviation now present Atrial fibrillation no longer present Incomplete right bundle-branch block no longer present Myocardial infarct finding still present Electronically Signed On 11-25-2020 20:33:05 CDT by Hailey Pardo M.D. [id number]
--- NOTE | 2020-11-24 18:33 | W.ED.WEAKNES ---
HPI - Weakness General: Chief complaint: Weakness Stated complaint: WEAKNESS, A-FIB W RVR Time Seen by Provider: 11/24/20 18:24 Source: patient and EMS Mode of arrival: EMS Limitations: no limitations History of Present Illness: HPI Narrative: 85-year-old female with a history of A. fib and history of stroke in the past. She lives with her son and [id number] on states that over the last 2 days she has had increasing weakness and had difficulty getting out of the bed today. States she is also had palpitations and states that she has not been taking her metoprolol for her A. fib due to just not feeling well not feeling like eating. She denies any diarrhea or vomiting. Denies any chest pain. Denies any worsening improving factors. Associated symptoms: Denies dysuria, easy bruising, nausea or vomiting Review of Systems Const: Reports: fatigue Eyes: Denies: blurry vision or eye discomfort ENMT: Denies: throat pain or dental pain Card: Reports: palpitations Resp: Denies: dyspnea GI: Denies: abdominal pain, nausea, vomiting or diarrhea : Denies: dysuria Musc: Denies: neck pain or back pain Skin/Breast: Denies: rash Neuro: Reports: weakness in extremities Psych: Denies: depression [place]/Lymph: Denies: easy bruising All/Imm: Denies: urticaria PFSH ED PFSH: Medical History Brain lesion Chronic atrial fibrillation Fibromyalgia Hyperlipidemia Hypothyroidism Osteoporosis Seizure disorder -sees Dr. Chao neurosurgery -sees Dr. 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 Vaginal prolapse Surgical History History of bladder surgery History of tonsillectomy History of total hysterectomy Family History Other CAD (coronary artery disease) Social History Smoking and tobacco status: never smoked Alcohol intake: never Household members: family Housing: House Physical Exam Const: COMMON NORMALS: no acute distress, patient oriented x3 and healthy appearing HENMT: COMMON NORMALS: normocephalic and atraumatic HEAD & SCALP: normocephalic and atraumatic Eye: COMMON NORMALS: Equal, round and reactive pupils present and EOMs intact bilaterally PUPIL: Yes Equal, round and reactive pupils present Neck/C-Spine: COMMON NORMALS: full ROM and supple Chest: COMMONS NORMALS: normal inspection of the chest and normal palpation of entire chest wall Resp: COMMON NORMALS: normal respiratory effort, No retractions, No use of accessory muscles and clear to auscultation bilaterally AUSCULTATION: clear to auscultation bilaterally Cardio: COMMON NORMALS: regular rate and No murmurs present (Cardio) RATE: regular rate RHYTHM: abnormal rhythm irregularly irregular GI: COMMON NORMALS: Normal to inspection, nondistended, normoactive bowel sounds present, Soft to palpation, non-tender and no masses PALPATION: Yes Soft to palpation Extremity: COMMON NORMALS: normal to inspection and full ROM Neuro: COMMON NORMALS: patient oriented x3, moves all extremities and no focal motor deficits Psych: COMMON NORMALS: mental status grossly normal, Normal thought process present and cooperative THOUGHT PROCESS: Normal thought process present Skin: COMMON NORMALS: no rashes or lesions noted and no wounds GENERAL SKIN EXAM: no rashes or lesions noted Course Vital Signs: Vital signs: Vital Signs Temperature 99 F 11/24/20 18:30 Pulse Rate 86 11/25/20 00:52 Respiratory Rate 20 H 11/25/20 00:52 Blood Pressure 108/57 11/25/20 00:52 Pulse Oximetry 91 11/25/20 00:52 MDM - Weakness MDM Narrative: Medical decision making narrative: Patient presents here with generalized weakness along with A. fib with RVR. Her heart rate improved here after Cardizem. She has not been taking her meds at home. I did attempt to walk her and she is not even able to stand due to weakness. Spoke to daughter and daughter states she cannot take care of her without her being able to ambulate at all and she would like her to be admitted and placed in a usp if she has no improvement. Spoke to hospitalist will admit. Lab Data: Labs: Lab Results 11/24/20 11/24/20 11/24/20 Range/Units 19:50 19:50 19:50 WBC 5.8 (4.0-10.0) 10^3/ uL RBC 4.28 (4.1-5.3) 10^6/u L Hgb 12.6 (11.5-15.3) g/dL Hct 38.7 (37.0-47.0) % MCV 90.4 (81-99) fL MCH 29.4 (28.0-34.0) pg MCHC 32.6 (30.0-36.0) g/dL RDW 14.4 (12.1-15.1) % Plt Count 167 (130-400) 10^3/c mm MPV 9.4 (7.4-10.4) fL Neut % (Auto) 74.6 % Lymph % (Auto) 14.6 % [place] % (Auto) 9.9 % Eos % (Auto) 0.0 % Baso % (Auto) 0.2 % Neut # (Auto) 4.31 (1.8-7.7) 10^3/u L Lymph # (Auto) 0.8 (0.8-4.8) 10^3/u L [place] # (Auto) 0.6 (0.2-0.9) 10^3/u L Eos # (Auto) 0.0 (0.0-0.8) 10^3/u L Baso # (Auto) 0.0 (0.0-0.1) 10^3/u L Nucleated RBC % (a uto) 0 % Nucleated RBCs # 0.0 /100WBC PT 15.10 H (12.1-14.9) SECO NDS INR 1.15 (0.8-1.2) Sodium 137 (136-145) mmol/L Potassium 3.9 (3.5-5.1) mmol/L Chloride 104 (98-107) mmol/L Carbon Dioxide 23 (22-29) mmol/L Anion Gap 13.9 (5-19) BUN 20 (8-23) mg/dL Creatinine 0.7 (0.5-0.9) mg/dL GFR Calculation Not Reportable Glucose 88 (65-115) mg/dL Calculated Osmolal ity 286 (285-295) mOsm/k g Calcium 7.5 L (8.5-10.5) mg/dL Total Bilirubin 0.4 (0.15-1.2) mg/dL AST 42 H (0-32) U/L ALT 11 (0-33) U/L Alkaline Phosphata se 64 (35-105) IU/L Troponin T Baselin e (0-10) ng/L Troponin T 120 Min [place] (0-10) ng/L Delta Troponin T (0-10) ABS# NT-Pro-B Natriuret Pep 6787 H (0-450) pg/mL Total Protein 6.1 L (6.6-8.7) g/dL Albumin 3.2 L (3.5-5.2) g/dL Globulin 2.9 (1.3-4.6) g/dL 11/24/20 11/24/20 Range/Units 19:50 21:42 WBC (4.0-10.0) 10^3/ uL RBC (4.1-5.3) 10^6/u L Hgb (11.5-15.3) g/dL Hct (37.0-47.0) % MCV (81-99) fL MCH (28.0-34.0) pg MCHC (30.0-36.0) g/dL RDW (12.1-15.1) % Plt Count (130-400) 10^3/c mm MPV (7.4-10.4) fL Neut % (Auto) % Lymph % (Auto) % [place] % (Auto) % Eos % (Auto) % Baso % (Auto) % Neut # (Auto) (1.8-7.7) 10^3/u L Lymph # (Auto) (0.8-4.8) 10^3/u L [place] # (Auto) (0.2-0.9) 10^3/u L Eos # (Auto) (0.0-0.8) 10^3/u L Baso # (Auto) (0.0-0.1) 10^3/u L Nucleated RBC % (a uto) % Nucleated RBCs # /100WBC PT (12.1-14.9) SECO NDS INR (0.8-1.2) Sodium (136-145) mmol/L Potassium (3.5-5.1) mmol/L Chloride (98-107) mmol/L Carbon Dioxide (22-29) mmol/L Anion Gap (5-19) BUN (8-23) mg/dL Creatinine (0.5-0.9) mg/dL GFR Calculation Glucose (65-115) mg/dL Calculated Osmolal ity (285-295) mOsm/k g Calcium (8.5-10.5) mg/dL Total Bilirubin (0.15-1.2) mg/dL AST (0-32) U/L ALT (0-33) U/L Alkaline Phosphata se (35-105) IU/L Troponin T Baselin e 109 H* (0-10) ng/L Troponin T 120 Min [place] 112.0 H (0-10) ng/L Delta Troponin T 3.0 (0-10) ABS# NT-Pro-B Natriuret Pep (0-450) pg/mL Total Protein (6.6-8.7) g/dL Albumin (3.5-5.2) g/dL Globulin (1.3-4.6) g/dL EKG Data^: EKG 1: Attestation: I personally reviewed and interpreted this EKG as follows: EKG interpretation date: 11/24/20 EKG interpretation time: 18:53 Interpretation: nsr hr [address] or t wave abnormalities qrs 113 qtc 407 Discharge Plan Discharge Patient Disposition: Admitted As Inpatient Admit Provider: Chicho Bansal Clinical Impression: Weakness, A-fib Condition: Stable Coding Level of Care Code ED Machine Operator Slitter Technician for Chg Fwd Exam Comprehensive
[2020-11-24] MEDS: sodium chloride 0.9% 1,000 ML 999 ML IV (19:16)
[2020-11-24 20:03] LABS: Basophils % 0.2 %; Hematocrit 38.7 % (37.0-47.0); Hemoglobin 12.6 g/dL (11.5-15.3); Lymphocytes # 0.8 10^3/uL (0.8-4.8); Lymphocytes % 14.6 %; Mean Corpuscular HGB Conc 32.6 g/dL (30.0-36.0); Mean Corpuscular Hemoglobin 29.4 pg (28.0-34.0); Mean Corpuscular Volume 90.4 fL (81-99); Mean Platelet Volume 9.4 fL (7.4-10.4); Monocytes # 0.6 10^3/uL (0.2-0.9); Monocytes % 9.9 %; Neutrophils # 4.31 10^3/uL (1.8-7.7); Neutrophils % 74.6 %; Nucleated Red Blood Cells % 0 %; Platelet Count 167 10^3/cmm (130-400); Red Blood Count 4.28 10^6/uL (4.1-5.3); Red Cell Distribution Width 14.4 % (12.1-15.1); White Blood Count 5.8 10^3/uL (4.0-10.0)
[2020-11-24 20:13] LABS: INR 1.15 (0.8-1.2)
--- NOTE | 2020-11-24 20:32 | ECG_ITS ---
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 Measurements Intervals [place] Rate: 78 P: SD: QRS: -62 QRSD: 107 T: 120 QT: 398 QTc: 455 Interpretive Statements ATRIAL FLUTTER LEFT ANTERIOR FASCICULAR BLOCK [QRS AXIS <= -45, QR IN I, RS IN II] LEFT VENTRICULAR HYPERTROPHY AND ST-T CHANGE [VOLTAGE CRITERIA PLUS ST/T ABNORMALITY] Compared to ECG 11/24/2020 18:53:17 Sinus rhythm no longer present Myocardial infarct finding no longer present ST (T wave) deviation still present Electronically Signed On 11-25-2020 20:32:12 CDT by Hailey Parod M.D. [id number]
[2020-11-24 20:37] LABS: Alanine Aminotransferase 11 U/L (0-33); Albumin Level 3.2 g/dL (3.5-5.2); Alkaline Phosphatase 64 IU/L (35-105); Anion Gap 13.9 (5-19); Aspartate Amino Transferase 42 U/L (0-32); Blood Urea Nitrogen 20 mg/dL (8-23); Calcium 7.5 mg/dL (8.5-10.5); Carbon Dioxide 23 mmol/L (22-29); Chloride 104 mmol/L (98-107); Globulin 2.9 g/dL (1.3-4.6); Glucose 88 mg/dL (65-115); NT Pro B Type Natriuretic Pept 6787 pg/mL (0-450); Osmolality Calculated 286 mOsm/kg (285-295); Potassium 3.9 mmol/L (3.5-5.1); Sodium 137 mmol/L (136-145); Total Bilirubin 0.4 mg/dL (0.15-1.2); Total Protein 6.1 g/dL (6.6-8.7)
[2020-11-24 20:58] LABS: Troponin(5th) Baseline 109 ng/L (0-10)
--- NOTE | 2020-11-24 22:32 | ECG_ITS ---
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 Measurements Intervals [place] Rate: 87 P: [place]: QRS: -65 QRSD: 107 T: 118 QT: 378 QTc: 457 Interpretive Statements ATRIAL FIBRILLATION LEFT ANTERIOR FASCICULAR BLOCK [QRS AXIS <= -45, QR IN I, RS IN II] VOLTAGE CRITERIA FOR LVH [MEETS CRITERIA IN ONE OF: R(aVL), S(V1), R(V5), R(V5/V6)+S(V1)] POSSIBLE LATERAL MYOCARDIAL INFARCTION [30 ms Q WAVE IN I/aVL/V5/V6], OF INDETERMINATE AGE Compared to ECG 11/24/2020 20:53:28 Myocardial infarct finding now present Atrial flutter no longer present ST (T wave) deviation no longer present Electronically Signed On 11-26-2020 12:39:53 CDT by Hailey Pardo M.D. [id number]
[2020-11-25] VITALS (18 sets, daily range): BP systolic 94–129; BP diastolic 42–80; PULSE 62–108; RESP 12–25; TEMP 36.8–37.3; O2SAT 88–98
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
[2020-11-25 02:18] LABS: Troponin 5 6HR Delta 0.6 ng/L (0-12)
[2020-11-25 02:25] LABS: Troponin 5 6HR 109.6 ng/L (0-10)
--- NOTE | 2020-11-25 02:32 | ECG_ITS ---
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 Measurements Intervals [place] Rate: 109 P: [place]: QRS: -65 QRSD: 114 T: 112 QT: 350 QTc: 472 Interpretive Statements ATRIAL FIBRILLATION WITH RAPID VENTRICULAR RESPONSE LEFT ANTERIOR FASCICULAR BLOCK [QRS AXIS <= -45, QR IN I, RS IN II] VOLTAGE CRITERIA FOR LVH [MEETS CRITERIA IN ONE OF: R(aVL), S(V1), R(V5), R(V5/V6)+S(V1)] POSSIBLE LATERAL MYOCARDIAL INFARCTION [30 ms Q WAVE IN I/aVL/V5/V6], OF INDETERMINATE AGE Compared to ECG 11/24/2020 22:47:08 No significant changes Electronically Signed On 11-26-2020 12:39:00 CDT by Hailey Pardo M.D. [email or web address].[employer]/store/OM/[id number]
[2020-11-25] MEDS: apixaban 5 mg Tablet 2.5 MG PO (08:15)
[2020-11-25] MEDS: levothyroxine 75 mcg Tablet PO (08:16)
[2020-11-25] MEDS: aspirin 81 mg EC Tablet PO (08:16)
[2020-11-25] MEDS: levETIRAcetam 500 mg Tablet 1000 MG PO ×2 (08:16→18:42)
[2020-11-25] MEDS: levothyroxine 50 mcg Tablet PO (08:16)
[2020-11-25] MEDS: metoprolol tartrate 25 mg Tablet PO ×2 (08:43→21:02)
[2020-11-25 11:41] LABS: Thyroid Stimulating Hormone 34.69 uIU/mL (0.27-4.20)
--- NOTE | 2020-11-25 14:05 | P.PN_ITS ---
Subjective Subjective: Interval history: Her heart rate has improved. She has no chest pain. She has been having difficulty rising and getting up for a few days. Prior to that some difficulty walking, although overall is not very active. The more severe generalized weakness is recent. Has not been vaccinated for COVID- 19, but denies any symptoms of the illness. Currently on 2 L nasal cannula oxygen, saturations in the low 90s, however, previously not on oxygen. Mild chronic intermittent cough. Denies headache, nausea vomiting or diarrhea. No muscle aches or chills. States that her thyroid hormone dose has been recently decreased down to 50 mcg. Vitals/I&O/Wt Last Vital Signs Temp 99.2 F 11/25/20 09:58 Pulse 65 11/25/20 12:15 Resp 20 H 11/25/20 12:15 BP 108/64 11/25/20 12:15 Pulse Ox 91 11/25/20 12:15 11/24/20 11/25/20 11/25/20 22:59 06:59 14:59 Intake Total 1000 / 1000 Balance 1000 / 1000 Weight last 48 hrs Weight 54.431 kg Physical Exam Narrative: EXAM NARRATIVE: Accompanied by [id number]. Const: COMMON NORMALS: no acute distress, patient oriented x3 and alert GENERAL APPEARANCE: frail appearing NUTRITIONAL APPEARANCE: thin ORIENTATION/CONSCIOUSNESS: Yes awake HENMT: COMMON NORMALS: oropharynx normal Neck/C-Spine: COMMON NORMALS: no JVD Resp: COMMON NORMALS: normal respiratory effort and clear to auscultation bilaterally AUSCULTATION: clear to auscultation bilaterally Cardio: COMMON NORMALS: no JVD, regular rhythm, S1 normal heart sound present, S2 normal heart sound present and No murmurs present (Cardio) RHYTHM: regular rhythm HEART SOUNDS: S1 normal heart sound present and S2 normal heart sound present GI: COMMON NORMALS: Normal to inspection, nondistended, normoactive bowel sounds present, Soft to palpation and non-tender PALPATION: Yes Soft to palpation Extremity: COMMON NORMALS: no joint enlargement and no pedal edema NARRATIVE EXTREMITY EXAM: Thin Neuro: COMMON NORMALS: patient oriented x3 and moves all extremities SENSORIUM/ORIENTATION: Yes alert Skin: COMMON NORMALS: no rashes or lesions noted GENERAL SKIN EXAM: no rashes or lesions noted Data : 11/24/20 19:50 11/24/20 19:50 A&P Assessment and plan (1) Weakness: Generalized weakness last several days. A. fib with RVR. A. fib with RVR currently under better control. Heart rates in 60s-70s. Troponin elevated, although without significant peak. Does not have chest pain. Will assess by James HARVEY. Mild cough. On 2 L of oxygen, not normally on supplemental O2, saturating 91%. Not vaccinated for COVID-19, check rapid antigen, PCR. She is on chronic anticoagulation, currently without symptoms suggest DVT, at the moment would not suspect PE. Requested also orthostatics. Requested straight cath as urine sample still not collected. Also appears to have hypothyroidism with TSH of 34.69, previously levothyroxine dose decreased to 50 mcg. Increase levothyroxine to 75 mcg. Looking at the medications currently appears for some reason she got both 50 and 75 mcg. DC 50 mcg dose. PT, OT assessment. Status: Acute (2) A-fib: Continue metoprolol. Eliquis. Status: Acute Additional A&P Information History of seizures. Continue Keppra. Deconditioning: Per discussion with [id number] she has not been very active. She does not get up until 11-1 PM. She does normally work with physical therapy and was working with them when they were coming home. However, subsequently does not continue with exercises. They have been inquiring about consideration of going to [facility] facility to provide more encouraging environment and stricter regimen for her to undergo rehabilitation. Discussed we will inquire with case management. Attestations Medical Necessity Statement*: Continue hospitalization for assessment of management of generalized weakness, currently difficulty with ambulation. Coding Level of Care Code Acute Picker Packer for Chg Fwd Diagnoses Weakness R53.1 A-fib I48.91
--- NOTE | 2020-11-25 14:08 | USCV_ITS ---
Trudy Jimenez Age: 85 Gender: F : 1935 Exam Date: 11/25/2020 14:55 Ordering Phys: Phan Hillman MD Technologist: Justin Alexandra Exam Location: [facility] [place] Indication: chf BP: 123 / 68 HR: 75 Rhythm: Sinus Technical Quality: Adequate MEASUREMENTS (Male / Female) Normal Values 2D ECHO LV Diastolic Diameter PLAX 3.0 cm 4.2 - 5.9 / 3.9 - 5.3 cm LV Systolic Diameter PLAX 2.2 cm IVS Diastolic Thickness 2.1 cm 0.6 - 1.0 / 0.6 - 0.9 cm IVS Systolic Thickness 2.2 cm LVPW Diastolic Thickness 1.1 cm 0.6 - 1.0 / 0.6 - 0.9 cm LVPW Systolic Thickness 1.7 cm LVOT Diameter 2.0 cm LV Ejection Fraction 2D Teich 52.3 % LV Ejection Fraction MOD 2C 72.5 % LV Ejection Fraction 2C AL 75.5 % LA Diameter 2.8 cm Aorta at Sinotubular Diameter 2.7 cm FINDINGS Left Ventricle Limited echocardiogram to assess LV systolic function. LV systolic function is normal with EF of 55-60%.Mild to moderate concentric hypertrophy is seen. Right Ventricle Grossly normal Right Atrium Not visualized Left Atrium Grossly normal Mitral Valve Mitral annular calcification is seen. Mild mitral regurgitation. Aortic Valve Grossly normal Tricuspid Valve Grossly normal Pulmonic Valve Not visualized Pericardium Normal Aorta Normal size CONCLUSIONS LV systolic function is normal with EF of 55-60% Mild mitral regurgitation is noted Comparison with prior echocardiogram from 2019 not possible as this is a limited echocardiogram to assess LV systolic function wihtout doppler exam however cardiac function has stayed preserved. Ac Le MD (Electronically Signed) Final Date: 25 November 2020 17:33 S
[2020-11-25 16:33] LABS: Add Urine Microscopic? YES; Bilirubin Urine Neg (Negative); Blood Urine 2+ (Negative); Glucose Urine UA Norm (Normal); Ketones Urine Negative (Negative); Leukocyte Esterase Urine Negative (Negative); Nitrate Urine Negative (Negative); Protein Urine Trace (Negative); Urine Appearance Clear (CLEAR); Urine Color Yellow (Yellow); Urobilinogen Urine 1 mg/dL (Negative); pH Urine 5 (5-7)
[2020-11-25 16:34] LABS: SARS Covid-2 Antigen Positive (Negative)
[2020-11-25 16:48] LABS: Bacteria Urine 1+ /hpf; RBC Urine RARE /hpf (0-2); Squamous Epithelial Cell Urine 0-4 /hpf (0-5); WBC Urine 0-4 /hpf (0-5)
[2020-11-25 16:49] LABS: Add Urine Culture? No; Fine Granular Casts Urine 0-4 /lpf
[2020-11-25] MEDS: dexamethasone 10 mg/mL INJ 6 MG IVP (18:41)
[2020-11-25] MEDS: remdesivir 200 MG in sodium chloride 0.9% (100 ml) 100 ML 100 MG IV (18:42)
[2020-11-25 20:40] LABS: C Reactive Protein 31.9 mg/L (0.0-4.9)
[2020-11-25] MEDS: enoxaparin 60 mg/0.6 mL Syringe 50 MG SUBCUT (21:02)
[2020-11-26] VITALS (10 sets, daily range): BP systolic 79–136; BP diastolic 56–106; PULSE 50–92; RESP 14–17; TEMP 36.3–37.3; O2SAT 94–98
[2020-11-26 05:49] LABS: Basophils % 0.2 %; Hematocrit 48.1 % (37.0-47.0); Hemoglobin 15.5 g/dL (11.5-15.3); Lymphocytes # 1.2 10^3/uL (0.8-4.8); Lymphocytes % 24.8 %; Mean Corpuscular HGB Conc 32.2 g/dL (30.0-36.0); Mean Corpuscular Volume 90.1 fL (81-99); Mean Platelet Volume 9.9 fL (7.4-10.4); Monocytes # 0.3 10^3/uL (0.2-0.9); Monocytes % 6.2 %; Neutrophils % 68.4 %; Nucleated Red Blood Cells % 0 %; Platelet Count 223 10^3/cmm (130-400); Red Blood Count 5.34 10^6/uL (4.1-5.3); Red Cell Distribution Width 14.4 % (12.1-15.1); White Blood Count 4.8 10^3/uL (4.0-10.0)
[2020-11-26 06:01] LABS: D Dimer 0.56 ug/mIFEU (0-0.59)
--- NOTE | 2020-11-26 06:04 | PC.NURSE ---
Shift Note Frequent safety and comfort rounds continue. Orders and/or nursing care completed as indicated. Patient monitored for response to intervention and treatments. Patient afebrile this shift. Patient incontinent of urine and wears brief at night. Patient is very weak and requires nurses assistance to reposition herself in bed. Patient had no complaints of pain this shift. No increase in oxygen requirement this shift patient still on 2LNC. Patient educated on current medications. Patient resting in bed and denies any needs at this time. Will continue to monitor.
[2020-11-26 06:12] LABS: Blood Urea Nitrogen 17 mg/dL (8-23); C Reactive Protein 39.4 mg/L (0.0-4.9); Calcium 8.2 mg/dL (8.5-10.5); Carbon Dioxide 25 mmol/L (22-29); Chloride 99 mmol/L (98-107); Glucose 98 mg/dL (65-115); Magnesium 2.1 mg/dL (1.7-2.3); Osmolality Calculated 282 mOsm/kg (285-295); Sodium 135 mmol/L (136-145)
[2020-11-26 06:15] LABS: Anion Gap 15.4 (5-19); Potassium 4.4 mmol/L (3.5-5.1)
--- NOTE | 2020-11-26 08:16 | PC.NURSE ---
i reported low bp 84/56 manual 90/64 to the nurse
[2020-11-26] MEDS: enoxaparin 60 mg/0.6 mL Syringe 50 MG SUBCUT ×2 (09:16→21:59)
[2020-11-26] MEDS: aspirin 81 mg EC Tablet PO (09:17)
[2020-11-26] MEDS: levETIRAcetam 500 mg Tablet 1000 MG PO ×2 (09:17→17:31)
[2020-11-26] MEDS: levothyroxine 75 mcg Tablet PO (09:17)
--- NOTE | 2020-11-26 11:51 | PC.NURSE ---
I reported the low bp to the nurse 79/56
[2020-11-26] MEDS: sodium chloride 0.9% 250 ML 500 ML IV (12:10)
--- NOTE | 2020-11-26 13:00 | P.PN_ITS ---
Subjective Subjective: Interval history: Feels generally weak, tired. Denies lightheadedness. Denies chest pain or pressure. Says at home blood pressure at times would be soft. Denies any prolonged steroid use in the past. Vitals/I&O/Wt Last Vital Signs Temp 98.3 F 11/26/20 11:50 Pulse 92 11/26/20 11:50 Resp 16 11/26/20 11:50 BP 91/57 11/26/20 12:49 Pulse Ox 96 11/26/20 11:50 11/25/20 11/26/20 11/26/20 22:59 06:59 14:59 Intake Total 200 / 200 240 / 440 490 / 490 Output Total 100 / 100 Balance 200 / 200 140 / 340 490 / 490 Weight last 48 hrs Weight 54.431 kg Physical Exam Const: COMMON NORMALS: no acute distress, patient oriented x3 and alert GENERAL APPEARANCE: frail appearing NUTRITIONAL APPEARANCE: thin ORIENTATION/CONSCIOUSNESS: Yes awake HENMT: COMMON NORMALS: oropharynx normal Neck/C-Spine: COMMON NORMALS: no JVD Resp: COMMON NORMALS: normal respiratory effort and clear to auscultation bilaterally AUSCULTATION: clear to auscultation bilaterally Cardio: COMMON NORMALS: no JVD, regular rhythm, S1 normal heart sound present, S2 normal heart sound present and No murmurs present (Cardio) RHYTHM: regular rhythm HEART SOUNDS: S1 normal heart sound present and S2 normal heart sound present GI: COMMON NORMALS: Normal to inspection, nondistended, normoactive bowel sounds present, Soft to palpation and non-tender PALPATION: Yes Soft to palpation Extremity: COMMON NORMALS: no joint enlargement and no pedal edema NARRATIVE EXTREMITY EXAM: Thin Neuro: COMMON NORMALS: patient oriented x3 and moves all extremities SENSORIUM/ORIENTATION: Yes alert Skin: COMMON NORMALS: no rashes or lesions noted GENERAL SKIN EXAM: no rashes or lesions noted Data : 11/26/20 04:46 11/26/20 04:46 A&P Assessment and plan (1) Hypotension: Hypotensive episode this afternoon. Requested small 250 mL bolus. Repeat as needed. Does appear to have some hemoconcentration with elevated hemoglobin level. Does not appear to have consistent good oral intake. Alternatively also possible autonomic instability with COVID-19. Monitor blood pressure. Avoid fluid overload. Metoprolol had to be held. Bedrest for now. Discussed with her as well as her [id number]. Status: Acute (2) COVID-19: Severe COVID-19. Continue remdesivir, Decadron. DuoNeb as needed. He is anticoagulated with Lovenox. Monitor for appearance of superimposed bacterial infection. [id number]-[id number] states rest of the family were tested and are also positive, are quarantining at home. Status: Acute (3) Weakness: Secondary to severe COVID-19 as above. A. fib with RVR on presentation resolved. Troponin elevated, although without significant peak. Does not have chest pain. Limited TTE with normal ejection fraction. Mild cough. On 2 L of oxygen, not normally on supplemental O2, saturating 91%. She is on chronic anticoagulation, currently without symptoms suggest DVT, at the moment would not suspect PE. Also appears to have hypothyroidism with TSH of 34.69, previously levothyroxine dose decreased to 50 mcg. Increase levothyroxine to 75 mcg. L PT, OT if tolerating. For now on bedrest. Status: Acute (4) A-fib: Continue metoprolol. Lovenox. At home on Eliquis. Status: Acute Additional A&P Information History of seizures. Continue Keppra. Deconditioning: PT, OT as tolerating, although for now bedrest due to hypotension. Attestations Medical Necessity Statement*: Continue admission for assessment management of severe COVID-19, hypotension. Coding Level of Care Code Acute Warrant Clerk for [facility] Diagnoses Hypotension I95.9 COVID-19 U07.1 Weakness R53.1 A-fib I48.91
[2020-11-26 14:32] LABS: Coronavirus Test Green County Detected
[2020-11-26] MEDS: dexamethasone 10 mg/mL INJ 6 MG IVP (17:02)
[2020-11-26] MEDS: remdesivir 100 MG in sodium chloride 0.9% (100 ml) 100 ML IV (17:31)
[2020-11-27] VITALS: BP 122/70; PULSE 138; RESP 17; TEMP 35.6; O2SAT 92
[2020-11-27 04:00] VITALS: BP 128/58; PULSE 80; RESP 18; TEMP 36.3; O2SAT 96
[2020-11-27 05:24] LABS: Basophils % 0.2 %; Hematocrit 47.8 % (37.0-47.0); Hemoglobin 15.9 g/dL (11.5-15.3); Lymphocytes % 16.8 %; Mean Corpuscular HGB Conc 33.3 g/dL (30.0-36.0); Mean Corpuscular Hemoglobin 29.2 pg (28.0-34.0); Mean Corpuscular Volume 87.7 fL (81-99); Mean Platelet Volume 10.2 fL (7.4-10.4); Monocytes # 0.4 10^3/uL (0.2-0.9); Monocytes % 6.4 %; Neutrophils # 4.61 10^3/uL (1.8-7.7); Neutrophils % 75.8 %; Nucleated Red Blood Cells % 0 %; Platelet Count 221 10^3/cmm (130-400); Red Blood Count 5.45 10^6/uL (4.1-5.3); Red Cell Distribution Width 14.2 % (12.1-15.1); White Blood Count 6.1 10^3/uL (4.0-10.0)
[2020-11-27 05:41] LABS: D Dimer 0.55 ug/mIFEU (0-0.59)
[2020-11-27 05:55] LABS: Alanine Aminotransferase 14 U/L (0-33); Albumin Level 2.8 g/dL (3.5-5.2); Alkaline Phosphatase 62 IU/L (35-105); Anion Gap 16.8 (5-19); Aspartate Amino Transferase 41 U/L (0-32); Blood Urea Nitrogen 23 mg/dL (8-23); C Reactive Protein 27.5 mg/L (0.0-4.9); Calcium 8.1 mg/dL (8.5-10.5); Carbon Dioxide 18 mmol/L (22-29); Chloride 104 mmol/L (98-107); Globulin 3.3 g/dL (1.3-4.6); Glucose 136 mg/dL (65-115); Osmolality Calculated 286 mOsm/kg (285-295); Potassium 3.8 mmol/L (3.5-5.1); Sodium 135 mmol/L (136-145); Total Bilirubin 0.2 mg/dL (0.15-1.2); Total Protein 6.1 g/dL (6.6-8.7)
[2020-11-27 07:48] VITALS: BP 127/88; PULSE 71; RESP 17; TEMP 36.9; O2SAT 97
[2020-11-27] MEDS: aspirin 81 mg EC Tablet PO (08:53)
[2020-11-27] MEDS: levothyroxine 75 mcg Tablet PO (08:53)
[2020-11-27] MEDS: enoxaparin 60 mg/0.6 mL Syringe 50 MG SUBCUT ×2 (08:53→20:49)
[2020-11-27] MEDS: levETIRAcetam 500 mg Tablet 1000 MG PO ×2 (08:53→18:06)
[2020-11-27 11:26] VITALS: BP 124/78; PULSE 97; RESP 17; TEMP 36.7; O2SAT 92
--- NOTE | 2020-11-27 12:21 | PC.CHAP ---
Pastoral Care Encounter/Spiritual Assessment Type of Contact [] Declined flexboard operator visit [] Patient/Family/Request visit [] Outpatient visit [] Follow-up visit [] Physician referral [] Code/Alert [] Routine visit [] Staff referral [] Actively dying [] Patient sleeping [] Family support [] [] Out of room [] Palliative care [] [] Receiving care in room [] Pre-surgical visit [] Trauma [] Long length of stay [] ICU visit [XX] Other: ISOLATION Relational/Emotional Strength [] Patient feels connected with others/family/visitors/staff [] Distress [] Loneliness/isolation [] Abandonment Spirituality of Patient [] Person of [place] [] Attends Gnosticism of their [place] [] Believes in Prayer [] Reads Bible or Worship materials [] There are Spiritual issues to be addressed Senior Foreman Interventions [] Prayer [] Active listening [] Non-anxious presence [] Spiritual/emotional support [] Crisis/trauma care [] Spiritual counseling [] Bereavement support [] Provided bereavement packet [] Provided Bible/devotional materials [] Provided toy/stuffed animal, coloring book to patient or family member [] Provided Communion [] Anointing/[place] [] Salvation [] Completed spiritual assessment [] Other: Impact on Illness or Injury [] Angry [] Fearful [] Anxious [] Often cries [] Exhaustion [] Unable to work [] Unable to attend roman catholic [] Unable to walk/stand [] Unable to read [] Unable to drive [] Unable to eat/drink [] Unable to sleep [] Unable to be with family [] Patient intubated [] Other: Summary Time spent with patient
[2020-11-27 16:00] VITALS: BP 129/62; PULSE 109; RESP 17; TEMP 37; O2SAT 92
--- NOTE | 2020-11-27 17:19 | P.PN_ITS ---
Subjective Subjective: Interval history: Feels very weak. Denies chest pain. Encouraged her to work with physical therapy and she confirms that she will. Vitals/I&O/Wt Last Vital Signs Temp 98.6 F 11/27/20 16:00 Pulse 109 H 11/27/20 16:00 Resp 17 11/27/20 16:00 BP 129/62 11/27/20 16:00 Pulse Ox 92 11/27/20 16:00 11/27/20 11/27/20 11/27/20 06:59 14:59 22:59 Intake Total 240 / 240 Balance 240 / 240 Physical Exam Narrative: EXAM NARRATIVE: Accompanied by [id number]. Const: COMMON NORMALS: no acute distress, patient oriented x3 and alert GENERAL APPEARANCE: frail appearing NUTRITIONAL APPEARANCE: thin ORIENTATION/CONSCIOUSNESS: Yes awake HENMT: COMMON NORMALS: oropharynx normal Neck/C-Spine: COMMON NORMALS: no JVD Resp: COMMON NORMALS: normal respiratory effort and clear to auscultation bilaterally AUSCULTATION: clear to auscultation bilaterally Cardio: COMMON NORMALS: no JVD, regular rhythm, S1 normal heart sound present, S2 normal heart sound present and No murmurs present (Cardio) RHYTHM: regular rhythm HEART SOUNDS: S1 normal heart sound present and S2 normal heart sound present GI: COMMON NORMALS: Normal to inspection, nondistended, normoactive bowel sounds present, Soft to palpation and non-tender PALPATION: Yes Soft to palpation Extremity: COMMON NORMALS: no joint enlargement and no pedal edema NARRATIVE EXTREMITY EXAM: Thin Neuro: COMMON NORMALS: patient oriented x3 and moves all extremities SENSORIUM/ORIENTATION: Yes alert Skin: COMMON NORMALS: no rashes or lesions noted GENERAL SKIN EXAM: no rashes or lesions noted Data : 11/27/20 04:40 11/27/20 04:40 A&P Assessment and plan (1) COVID-19: She is extremely weak. Encouraged her to work with physical therapy, she states she will. Continues on nasal cannula oxygen. Continue remdesivir, Decadron. DuoNeb as needed. Anticoagulated with Lovenox. Monitor for appearance of superimposed bacterial infection. Given severe weakness, deconditioning, arrangements are being made for placement to [facility] facility for rehabilitation. Status: Acute (2) Hypotension: Improved, responded well to small IVF bolus. Encourage p.o. intake. Alternatively also possible autonomic instability with COVID-19. Monitor blood pressure. Avoid fluid overload. Metoprolol held. May resume in case blood pressure remains good. Removed bedrest restriction. Status: Acute (3) Weakness: Secondary to severe COVID-19 as above. A. fib with RVR on presentation resolved. Troponin elevated, although without significant peak. Does not have chest pain. Limited TTE with normal ejection fraction. Mild cough. On 2 L of oxygen, not normally on supplemental O2, saturating 91%. She is on chronic anticoagulation, currently without symptoms suggest DVT, at the moment would not suspect PE. Also appears to have hypothyroidism as below. PT, OT. Encourage activity. Status: Acute (4) A-fib: Held metoprolol. Resume if blood pressure remains good. Lovenox. At home on Eliquis. Status: Acute Additional A&P Information History of seizures. Continue Keppra. Hypothyroidism: Levothyroxine dose increased to 75 mcg. Deconditioning: PT, OT as tolerating, although for now bedrest due to hypotension. Attestations 2 Medical Necessity Statement*: Continue admission for assessment of management of severe COVID-19. Coding Level of Care Code Acute Personal Care Service Provider for [facility] Fwd Diagnoses COVID-19 U07.1 Hypotension I95.9 Weakness R53.1 A-fib I48.91
[2020-11-27] MEDS: dexamethasone 10 mg/mL INJ 6 MG IVP (18:06)
[2020-11-27] MEDS: remdesivir 100 MG in sodium chloride 0.9% (100 ml) 100 ML IV (18:06)
[2020-11-27 20:00] VITALS: BP 122/72; PULSE 98; RESP 18; TEMP 36.8; O2SAT 95
[2020-11-28] VITALS: BP 116/69; PULSE 133; RESP 20; TEMP 36.5; O2SAT 93
[2020-11-28 04:00] VITALS: BP 100/75; PULSE 134; RESP 18; TEMP 36.6; O2SAT 92
--- NOTE | 2020-11-28 06:21 | PC.NURSE ---
shift summary pt has rested throughout the night with no complaints.
[2020-11-28 07:20] LABS: Basophils % 0.2 %; Hematocrit 44.4 % (37.0-47.0); Hemoglobin 14.3 g/dL (11.5-15.3); Lymphocytes # 0.7 10^3/uL (0.8-4.8); Lymphocytes % 8.2 %; Mean Corpuscular HGB Conc 32.2 g/dL (30.0-36.0); Mean Corpuscular Hemoglobin 29.2 pg (28.0-34.0); Mean Corpuscular Volume 90.8 fL (81-99); Mean Platelet Volume 10.1 fL (7.4-10.4); Monocytes # 0.4 10^3/uL (0.2-0.9); Monocytes % 4.3 %; Neutrophils # 7.66 10^3/uL (1.8-7.7); Neutrophils % 86.2 %; Nucleated Red Blood Cells % 0 %; Platelet Count 240 10^3/cmm (130-400); Red Blood Count 4.89 10^6/uL (4.1-5.3); Red Cell Distribution Width 14.2 % (12.1-15.1); White Blood Count 8.9 10^3/uL (4.0-10.0)
[2020-11-28 08:00] VITALS: BP 133/72; PULSE 102; RESP 16; TEMP 36.1; O2SAT 96
[2020-11-28 08:50] LABS: Alanine Aminotransferase 14 U/L (0-33); Albumin Level 2.9 g/dL (3.5-5.2); Alkaline Phosphatase 62 IU/L (35-105); Aspartate Amino Transferase 38 U/L (0-32); Blood Urea Nitrogen 19 mg/dL (8-23); Carbon Dioxide 19 mmol/L (22-29); Chloride 106 mmol/L (98-107); Glucose 120 mg/dL (65-115); Osmolality Calculated 289 mOsm/kg (285-295); Sodium 138 mmol/L (136-145); Total Bilirubin 0.2 mg/dL (0.15-1.2); Total Protein 5.9 g/dL (6.6-8.7)
[2020-11-28] MEDS: aspirin 81 mg EC Tablet PO (08:54)
[2020-11-28] MEDS: levothyroxine 75 mcg Tablet PO (08:54)
[2020-11-28] MEDS: levETIRAcetam 500 mg Tablet 1000 MG PO ×2 (08:54→17:18)
[2020-11-28] MEDS: enoxaparin 60 mg/0.6 mL Syringe 50 MG SUBCUT ×2 (08:55→21:14)
[2020-11-28 09:12] LABS: Anion Gap 17.3 (5-19)
[2020-11-28 09:13] LABS: Potassium 4.3 mmol/L (3.5-5.1)
--- NOTE | 2020-11-28 09:40 | PC.OT ---
Client declined participating in occupational therapy, reported she was fatigued and just needed to rest today. Client reported not sleeping well last night. Client was educated on energy conservation techniques. Client responded well to education and reported understanding. Client was left with needs met and call light within reach.
[2020-11-28] MEDS: metoprolol tartrate 25 mg Tablet PO ×2 (10:13→21:14)
--- NOTE | 2020-11-28 10:33 | P.PN_ITS ---
Subjective Subjective: Interval history: Weak. Having diarrhea. No chest pain. Vitals/I&O/Wt Last Vital Signs Temp 96.9 F L 11/28/20 08:00 Pulse 102 H 11/28/20 08:00 Resp 16 11/28/20 08:00 BP 133/72 11/28/20 08:00 Pulse Ox 96 11/28/20 08:00 11/27/20 11/28/20 11/28/20 22:59 06:59 14:59 Intake Total 580 / 820 120 / 940 Balance 580 / 820 120 / 940 Physical Exam Const: COMMON NORMALS: no acute distress, patient oriented x3 and alert GENERAL APPEARANCE: frail appearing NUTRITIONAL APPEARANCE: thin ORIENTATION/CONSCIOUSNESS: Yes awake HENMT: COMMON NORMALS: oropharynx normal Neck/C-Spine: COMMON NORMALS: no JVD Resp: COMMON NORMALS: normal respiratory effort and clear to auscultation bilaterally AUSCULTATION: clear to auscultation bilaterally Cardio: COMMON NORMALS: no JVD, regular rhythm, S1 normal heart sound present, S2 normal heart sound present and No murmurs present (Cardio) RHYTHM: regular rhythm HEART SOUNDS: S1 normal heart sound present and S2 normal heart sound present GI: COMMON NORMALS: Normal to inspection, nondistended, normoactive bowel sounds present, Soft to palpation and non-tender PALPATION: Yes Soft to pa lpation Extremity: COMMON NORMALS: no joint enlargement and no pedal edema NARRATIVE EXTREMITY EXAM: Thin Neuro: COMMON NORMALS: patient oriented x3 and moves all extremities SENSORIUM/ORIENTATION: Yes alert Skin: COMMON NORMALS: no rashes or lesions noted GENERAL SKIN EXAM: no rashes or lesions noted Data : 11/28/20 06:44 11/28/20 06:44 A&P Assessment and plan (1) COVID-19: Very weak. Having diarrhea. Requiring 2 L oxygen by nasal cannula. Continue remdesivir, Decadron. DuoNeb as needed. Anticoagulated with Lovenox. Monitor for appearance of superimposed bacterial infection. Given severe weakness, deconditioning, arrangements are being made for placement to half-way facility for rehabilitation. Status: Acute (2) A-fib: A. fib with RVR this morning. Blood pressure soft, 109 systolic. Resume p.o. metoprolol. Monitor on telemetry. Lovenox. At home on Eliquis. Status: Acute (3) Hypotension: Improved, responded well to small IVF bolus. Encourage p.o. intake. Alternatively also possible autonomic instability with COVID-19. Monitor blood pressure. Avoid fluid overload. Metoprolol held. May resume in case blood pressure remains good. Removed bedrest restriction. Status: Acute (4) Weakness: Secondary to severe COVID-19 as above. A. fib with RVR on presentation resolved. Troponin elevated, although without significant peak. Does not have chest pain. Limited TTE with normal ejection fraction. Mild cough. On 2 L of oxygen, not normally on supplemental O2, saturating 91%. She is on chronic anticoagulation, currently without symptoms suggest DVT, at the moment would not suspect PE. Also appears to have hypothyroidism as below. PT, OT. Encourage activity. Status: Acute Additional A&P Information History of seizures. Continue Keppra. Hypothyroidism: Levothyroxine dose increased to 75 mcg. Deconditioning: PT, OT as tolerating, although for now bedrest due to hypotension. Attestations Medical Necessity Statement*: Continue admission for assessment management of severe COVID-19, control of A. fib with RVR, disposition planning and arr angements. Coding Level of Care Code Acute Lymphedema Therapist for [facility] Fwd Diagnoses COVID-19 U07.1 A-fib I48.91 Hypotension I95.9 Weakness R53.1
[2020-11-28 11:16] VITALS: BP 123/82; PULSE 132; RESP 19; TEMP 36.4; O2SAT 93
--- NOTE | 2020-11-28 12:34 | PC.SOCIAL ---
IMM update IMM updated with Celena. Verbalized an understanding. Initialed, dated, time, and placed in chart.
[2020-11-28 16:00] VITALS: BP 145/74; PULSE 91; RESP 16; TEMP 36.9; O2SAT 94
[2020-11-28] MEDS: remdesivir 100 MG in sodium chloride 0.9% (100 ml) 100 ML IV (17:17)
[2020-11-28] MEDS: dexamethasone 10 mg/mL INJ 6 MG IVP (17:18)
[2020-11-28] MEDS: metoprolol tartrate 1 mg/1 mL SDV 5 mL 5 MG IV (19:26)
[2020-11-28 20:00] VITALS: BP 124/87; PULSE 63; RESP 16; TEMP 36.7; O2SAT 92
[2020-11-28] MEDS: famotidine 20 mg Tablet PO (21:14)
[2020-11-29] VITALS (8 sets, daily range): BP systolic 115–135; BP diastolic 62–85; PULSE 71–80; RESP 16–20; TEMP 36.4–36.9; O2SAT 94–96
[2020-11-29 06:12] LABS: Basophils % 0.3 %; Hematocrit 44.7 % (37.0-47.0); Hemoglobin 14.4 g/dL (11.5-15.3); Lymphocytes # 0.9 10^3/uL (0.8-4.8); Lymphocytes % 11.1 %; Mean Corpuscular HGB Conc 32.2 g/dL (30.0-36.0); Mean Corpuscular Volume 90.1 fL (81-99); Mean Platelet Volume 9.9 fL (7.4-10.4); Monocytes # 0.4 10^3/uL (0.2-0.9); Monocytes % 4.5 %; Neutrophils # 6.49 10^3/uL (1.8-7.7); Neutrophils % 82.9 %; Nucleated Red Blood Cells % 0 %; Platelet Count 241 10^3/cmm (130-400); Red Blood Count 4.96 10^6/uL (4.1-5.3); Red Cell Distribution Width 14.5 % (12.1-15.1); White Blood Count 7.8 10^3/uL (4.0-10.0)
--- NOTE | 2020-11-29 06:36 | PC.NURSE ---
end of shift summary pt rested well throughout the night, no complaints. heart rate remained stable
[2020-11-29 06:49] LABS: Alanine Aminotransferase 15 U/L (0-33); Albumin Level 2.7 g/dL (3.5-5.2); Alkaline Phosphatase 59 IU/L (35-105); Anion Gap 13.5 (5-19); Aspartate Amino Transferase 34 U/L (0-32); Blood Urea Nitrogen 14 mg/dL (8-23); C Reactive Protein 24.5 mg/L (0.0-4.9); Carbon Dioxide 24 mmol/L (22-29); Chloride 106 mmol/L (98-107); Globulin 3.1 g/dL (1.3-4.6); Glucose 111 mg/dL (65-115); Osmolality Calculated 289 mOsm/kg (285-295); Potassium 4.5 mmol/L (3.5-5.1); Sodium 139 mmol/L (136-145); Total Bilirubin 0.3 mg/dL (0.15-1.2); Total Protein 5.8 g/dL (6.6-8.7)
[2020-11-29] MEDS: enoxaparin 60 mg/0.6 mL Syringe 50 MG SUBCUT ×2 (09:25→20:29)
[2020-11-29] MEDS: levETIRAcetam 500 mg Tablet 1000 MG PO ×2 (09:27→18:47)
[2020-11-29] MEDS: aspirin 81 mg EC Tablet PO (09:27)
[2020-11-29] MEDS: metoprolol tartrate 25 mg Tablet PO ×2 (09:27→20:29)
[2020-11-29] MEDS: levothyroxine 75 mcg Tablet PO (09:27)
--- NOTE | 2020-11-29 10:42 | PM.PN ---
Subjective Subjective: Interval history: She has been feeling weak. Says is try to get up with physical therapy when they come. Denies chest pain or pressure. No nausea vomiting. Had little bit of breakfast. Vitals/I&O/Wt Last Vital Signs Temp 97.6 F 11/29/20 08:00 Pulse 71 11/29/20 08:00 Resp 18 11/29/20 08:00 BP 127/85 11/29/20 08:00 Pulse Ox 96 11/29/20 08:00 11/28/20 11/29/20 11/29/20 22:59 06:59 14:59 Intake Total 460 / 460 Balance 460 / 460 Physical Exam Const: COMMON NORMALS: no acute distress, patient oriented x3 and alert GENERAL APPEARANCE: frail appearing NUTRITIONAL APPEARANCE: thin ORIENTATION/CONSCIOUSNESS: Yes awake OTHER: Week, deconditioned HENMT: COMMON NORMALS: oropharynx normal Neck/C-Spine: COMMON NORMALS: no meningeal signs and no JVD Resp: COMMON NORMALS: normal respiratory effort and clear to auscultation bilaterally AUSCULTATION: clear to auscultation bilaterally Cardio: COMMON NORMALS: no JVD, regular rhythm, S1 normal heart sound present, S2 normal heart sound present and No murmurs present (Cardio) RHYTHM: regular rhythm HEART SOUNDS: S1 normal heart sound present and S2 normal heart sound present GI: COMMON NORMALS: Normal to inspection, nondistended, normoactive bowel sounds present, Soft to palpation and non-tender PALPATION: Yes Soft to palpation Extremity: COMMON NORMALS: no joint enlargement and no pedal edema NARRATIVE EXTREMITY EXAM: Thin, muscular atrophy Neuro: COMMON NORMALS: patient oriented x3 and moves all extremities SENSORIUM/ORIENTATION: Yes alert MENINGEAL SIGNS: Yes no meningeal signs COORDINATION/BALANCE: [id number] test normal (Slow) SPEECH: speech normal SENSORY EXAM: Yes Normal double simultaneous stimulation for sensation MOTOR EXAM: Pronator motor function not present COORDINATION: fyvaic-[id number] test normal (Slow) OTHER: No trouble tracking. Visual hensley full to confrontation. Skin: COMMON NORMALS: no rashes or lesions noted GENERAL SKIN EXAM: no rashes or lesions noted Data : 11/29/20 06:00 11/29/20 06:00 A&P Assessment and plan (1) COVID-19: She is quite weak. Weakly lifting legs off of bed. States she is so weak, she is afraid she may have had a stroke. Discussed with her I do not detect any focal neurologic abnormality on examination. Suspect her weakness is related to baseline deconditioning as relayed by her [id number], with superimposed COVID-19. As well as hypothyroidism. Nasal cannula 2 L. Continue remdesivir, Decadron. DuoNeb as needed. Anticoagulated with Lovenox. Monitor for appearance of superimposed bacterial infection. Given severe weakness, deconditioning, arrangements are being made for placement to [facility] facility for rehabilitation. Status: Acute (2) A-fib: A. fib with RVR on 11/28. Resumed 25 mg p.o. metoprolol, however, heart rate still increased in the evening, received 5 mg IV push metoprolol with improvement. So far continues on 25 mg twice daily metoprolol. Monitor on telemetry. Lovenox. At home on Eliquis. Status: Acute (3) Hypotension: Improved, responded well to small IVF bolus after initial hypotension. Encourage p.o. intake. Alternatively also possible autonomic instability with COVID-19. Monitor blood pressure. Avoid fluid overload. Removed bedrest restriction. Status: Acute (4) Weakness: Secondary to severe COVID-19 as above. As well as underlying deconditioning as related by her [id number]. A. fib with RVR on presentation resolved. Troponin elevated, although without significant peak. Does not have chest pain. Limited TTE with normal ejection fraction. Mild cough. On 2 L of oxygen, not normally on supplemental O2, saturating 91%. She is on chronic anticoagulation, currently without symptoms suggest DVT, at the moment would not suspect PE. Also appears to have hypothyroidism as below. PT, OT. Encourage activity. Status: Acute Additional A&P Information History of seizures. Continue Keppra. Hypothyroidism: TSH up to 34.69 after recent decrease in levothyroxine dose. Levothyroxine dose increased to 75 mcg. Deconditioning: Encouraged her to continue PT, OT and she intends to continue to participate. Attestations Medical Necessity Statement*: Continue admission for assessment management of severe generalized weakness in the setting of severe COVID-19, with underlying hypothyroidism, deconditioning. Disposition planning and arrangements. Coding Level of Care Code Acute Underwater Welder for [facility] Fwd Diagnoses COVID-19 U07.1 A-fib I48.91 Hypotension I95.9 Weakness R53.1
[2020-11-29] MEDS: dexamethasone 10 mg/mL INJ 6 MG IVP (18:46)
[2020-11-29] MEDS: remdesivir 100 MG in sodium chloride 0.9% (100 ml) 100 ML IV (19:07)
[2020-11-29] MEDS: famotidine 20 mg Tablet PO (20:29)
[2020-11-30] VITALS (8 sets, daily range): BP systolic 112–159; BP diastolic 74–83; PULSE 62–87; RESP 15–17; TEMP 36.4–37.1; O2SAT 94–98
[2020-11-30 07:24] LABS: Basophils % 0.1 %; Hematocrit 44.4 % (37.0-47.0); Hemoglobin 14.7 g/dL (11.5-15.3); Lymphocytes # 0.7 10^3/uL (0.8-4.8); Lymphocytes % 8.9 %; Mean Corpuscular HGB Conc 33.1 g/dL (30.0-36.0); Mean Corpuscular Hemoglobin 29.1 pg (28.0-34.0); Mean Corpuscular Volume 87.9 fL (81-99); Mean Platelet Volume 10.5 fL (7.4-10.4); Monocytes # 0.3 10^3/uL (0.2-0.9); Monocytes % 3.4 %; Neutrophils # 6.23 10^3/uL (1.8-7.7); Neutrophils % 85.5 %; Nucleated Red Blood Cells % 0 %; Platelet Count 261 10^3/cmm (130-400); Red Blood Count 5.05 10^6/uL (4.1-5.3); Red Cell Distribution Width 14.5 % (12.1-15.1); White Blood Count 7.3 10^3/uL (4.0-10.0)
[2020-11-30 07:35] LABS: Alanine Aminotransferase 14 U/L (0-33); Albumin Level 2.6 g/dL (3.5-5.2); Alkaline Phosphatase 56 IU/L (35-105); Anion Gap 15.1 (5-19); Aspartate Amino Transferase 25 U/L (0-32); Blood Urea Nitrogen 16 mg/dL (8-23); Calcium 7.6 mg/dL (8.5-10.5); Carbon Dioxide 24 mmol/L (22-29); Chloride 106 mmol/L (98-107); Globulin 3.2 g/dL (1.3-4.6); Glucose 136 mg/dL (65-115); Osmolality Calculated 295 mOsm/kg (285-295); Potassium 4.1 mmol/L (3.5-5.1); Sodium 141 mmol/L (136-145); Total Bilirubin 0.3 mg/dL (0.15-1.2); Total Protein 5.8 g/dL (6.6-8.7)
[2020-11-30] MEDS: enoxaparin 60 mg/0.6 mL Syringe 50 MG SUBCUT ×2 (08:21→20:37)
[2020-11-30] MEDS: aspirin 81 mg EC Tablet PO (08:21)
[2020-11-30] MEDS: metoprolol tartrate 25 mg Tablet PO ×2 (08:21→20:37)
[2020-11-30] MEDS: levETIRAcetam 500 mg Tablet 1000 MG PO ×2 (08:21→18:01)
[2020-11-30] MEDS: levothyroxine 75 mcg Tablet PO (08:21)
--- NOTE | 2020-11-30 12:02 | PC.SOCIAL ---
IMM update IMM updated with Celena. Verbalized an understanding. Initialed, dated, time, and placed in chart.
[2020-11-30 15:01] LABS: NT Pro B Type Natriuretic Pept 5157 pg/mL (0-450); Procalcitonin 0.06 ng/mL (0-0.5)
[2020-11-30 15:12] LABS: Iron 32 ug/dL (37-145); Percent Saturation 15.8 % (20-50); Total Iron Binding Capacity 202 mcg/dl; Unsaturated Iron Binding 170 ug/dL (112-347)
[2020-11-30] MEDS: benzonatate 100 mg Capsule PO ×2 (15:17→20:37)
--- NOTE | 2020-11-30 15:56 | PM.PN ---
Subjective Subjective: Interval history: Hospital course, labs appreciated. No acute events overnight. Patient has remained hemodynamically stable and afebrile overnight. Currently on 2 L of oxygen supplementations maintaining saturation over 90%. Vitals/I&O/Wt Last Vital Signs Temp 98.4 F 11/30/20 12:00 Pulse 87 11/30/20 12:00 Resp 17 11/30/20 12:00 BP 112/74 11/30/20 12:00 Pulse Ox 95 11/30/20 12:00 11/30/20 11/30/20 11/30/20 06:59 14:59 22:59 Intake Total 480 / 480 Balance 480 / 480 Physical Exam Narrative: EXAM NARRATIVE: General: No acute distress, AO x3, fairly weak, frail HEENT: PERRLA, pupils bilaterally equal and reactive, full voice Chest: Occasional rhonchi present all over the lung hensley, equal good air entry bilaterally CVS: S1-S2 regular, no murmurs, no tachycardia, no gallops, no rubs Abdomen: Soft, nontender, no organomegaly, bowel sounds present Neuro: No focal deficits, no facial deformity, AO x3, power 5/5 in all limbs Data : 11/30/20 06:51 11/30/20 06:51 A&P Assessment and plan (1) COVID-19: Status: Acute (2) A-fib: Heart rate better controlled now. Continue with metoprolol 25 mg twice daily. Patient already on full dose Lovenox for now. Will transition to home dose of Eliquis on discharge. Status: Acute (3) Hypotension: Resolved. Responded well to small IVF bolus after initial hypotension. Encourage p.o. intake. Alternatively also possible autonomic instability with COVID-19. Monitor blood pressure. Avoid fluid overload. Removed bedrest restriction. Status: Acute (4) Weakness: Secondary to severe COVID-19 as above. As well as underlying deconditioning as related by her [id number]. A. fib with RVR on presentation resolved. Troponin elevated, although without significant peak. Does not have chest pain. Limited TTE with normal ejection fraction. Mild cough. On 2 L of oxygen, not normally on supplemental O2, saturating 91%. She is on chronic anticoagulation, currently without symptoms suggest DVT, at the moment would not suspect PE. Also appears to have hypothyroidism as below. PT, OT. Encourage activity. Status: Acute (5) Physical deconditioning: Chronic. Getting worse because of COVID-19 and hypothyroidism. Appreciate PT/OT recommendations. Status: Acute (6) Hypothyroidism: Status: Acute Qualifiers: Hypothyroidism type: acquired Qualified Code(s): E03.9 - Hypothyroidism, unspecified Additional A&P Information Hypoxia secondary to COVID-19 pneumonia: Mild to moderate disease. Oxygen supplementation keeping saturation over 88%. Dexamethasone 6 mg daily. Finish remdesivir course the last dose on November 29. Vitamin C, zinc. Advair, Spiriva. Pulmonary toilet with incentive spirometry flutter valve. We will monitor inflammatory markers including ferritin, ESR, CRP, D-dimer, fibrinogen. D-dimer elevated. CTA negative for pulmonary embolism. For now we will start patient on full dose anticoagulation. Will monitor for anemia or blood loss. Procalcitonin negative. Low suspicion of bacterial infection for now. For now hold off on antibiotics. Has remained hemodynamically stable afebrile off antibiotics since admission. History of seizures. Continue Keppra. Hypothyroidism: TSH up to 34.69 after recent decrease in levothyroxine dose. Levothyroxine dose increased to 75 mcg. Check free T3, T4, random cortisol levels. Discharge planning: Given severe physical deconditioning which seems to be chronic as per the family member further discharge planning with a possible discharge to SNF versus . Unfortunately with her being COVID-19 positive, she can go to SNF in area for 14 days post positive test. Discussed same with son and he would want to take her home with . He is requesting patient to be discharged on as that is when his quarantine. From COVID-19 finishes. We did discuss that currently patient is requiring thyroxine replenishment for hypothyroidism for sure which she would require hospitalization for few more days. Attestations Medical Necessity Statement*: Patient requires further hospitalization for management of COVID-19 pneumonia, hypothyroidism, severe deconditioning while safe discharge planning is sought. Time Spent in Patient Care: Greater than 35 minutes (>than 50% of time spent in counselling and/or direct pt care on unit). Coding Level of Care Code Acute Community Health Representative for [facility] Diagnoses COVID-19 U07.1 A-fib I48.91 Hypotension I95.9 Weakness R53.1 Physical deconditioning R53.81 Hypothyroidism E03.9 Hypothyroidism type: acquired
[2020-11-30 17:13] LABS: Free T4 Free Thyroxine 0.87 ng/dL (0.82-1.77); T3 Free 0.8 PG/ML (2.0-4.4)
[2020-11-30] MEDS: dexamethasone 10 mg/mL INJ 6 MG IVP (17:48)
[2020-11-30] MEDS: fluticasone nasal spray 16gm Btl 1 SPRAY NASAL (18:01)
[2020-11-30] MEDS: ferrous gluconate 324 mg Tablet PO (18:01)
[2020-11-30] MEDS: ascorbic acid 500 mg Tablet 1000 MG PO (18:01)
[2020-11-30 20:27] LABS: Cortisol Random 2.34 ug/dL (2.47-19.5)
[2020-11-30] MEDS: famotidine 20 mg Tablet PO (20:37)
[2020-12-01] VITALS (10 sets, daily range): BP systolic 125–162; BP diastolic 74–85; PULSE 61–79; RESP 16–20; TEMP 36.4–36.8; O2SAT 94–96
[2020-12-01 04:58] LABS: Basophils % 0.4 %; Hematocrit 45.7 % (37.0-47.0); Hemoglobin 14.9 g/dL (11.5-15.3); Lymphocytes # 0.7 10^3/uL (0.8-4.8); Lymphocytes % 8.8 %; Mean Corpuscular HGB Conc 32.6 g/dL (30.0-36.0); Mean Corpuscular Hemoglobin 28.9 pg (28.0-34.0); Mean Corpuscular Volume 88.7 fL (81-99); Mean Platelet Volume 10.1 fL (7.4-10.4); Monocytes # 0.2 10^3/uL (0.2-0.9); Neutrophils # 6.57 10^3/uL (1.8-7.7); Neutrophils % 82.9 %; Nucleated Red Blood Cells % 0 %; Platelet Count 281 10^3/cmm (130-400); Red Blood Count 5.15 10^6/uL (4.1-5.3); Red Cell Distribution Width 14.6 % (12.1-15.1); White Blood Count 7.9 10^3/uL (4.0-10.0)
[2020-12-01 05:09] LABS: Estmated Average Glucose 114; Hemoglobin A1C 5.6 % (4.0-6.0)
[2020-12-01 05:12] LABS: D Dimer 0.32 ug/mIFEU (0-0.59)
[2020-12-01 05:27] LABS: Alanine Aminotransferase 14 U/L (0-33); Albumin Level 2.8 g/dL (3.5-5.2); Alkaline Phosphatase 58 IU/L (35-105); Anion Gap 11.2 (5-19); Aspartate Amino Transferase 20 U/L (0-32); Blood Urea Nitrogen 14 mg/dL (8-23); C Reactive Protein 17.4 mg/L (0.0-4.9); Calcium 8.1 mg/dL (8.5-10.5); Carbon Dioxide 28 mmol/L (22-29); Chloride 105 mmol/L (98-107); Globulin 3.2 g/dL (1.3-4.6); Glucose 164 mg/dL (65-115); Osmolality Calculated 294 mOsm/kg (285-295); Potassium 4.2 mmol/L (3.5-5.1); Sodium 140 mmol/L (136-145); Thyroid Stimulating Hormone 11.82 uIU/mL (0.27-4.20); Total Bilirubin 0.2 mg/dL (0.15-1.2)
[2020-12-01 05:45] LABS: Cortisol Random 2.44 ug/dL (2.47-19.5)
--- NOTE | 2020-12-01 05:51 | PC.NURSE ---
no new events this shift. patient was afebrile this shift. Patient denies any pain this shift. Patient remains on 2L NC. will continue to monitor.
--- NOTE | 2020-12-01 06:00 | XRR_ITS ---
PROCEDURE INFORMATION: Exam: XR Chest Exam date and time: 12/01/2020 6:00 AM Age: 85 years old Clinical indication: Condition or disease; Other: Covid TECHNIQUE: Imaging protocol: XR of the chest. Views: 1 view. COMPARISON: CR (CHEST, ) 11/24/2020 6:49 PM FINDINGS: Lungs: Is there worsening bilateral interstitial pulmonary infiltrates especially in the right upper lobe. There is opacification of the medial left lung base consistent with atelectasis in the left lower lobe. Pleural spaces: Unremarkable. No pleural effusion. No pneumothorax. Heart/Mediastinum: Unremarkable. No cardiomegaly. Bones/joints: Unremarkable. XR/XR chest 1V portable [id number] IMPRESSION: 1. Worsening bilateral interstitial pulmonary infiltrates especially in the right upper lobe. 2. Worsening left basilar atelectasis.
[2020-12-01 06:03] LABS: Erythrocyte Sedimentation Rate 29 mm/hr (0-15)
[2020-12-01] MEDS: enoxaparin 60 mg/0.6 mL Syringe 50 MG SUBCUT ×2 (09:04→20:04)
[2020-12-01] MEDS: levETIRAcetam 500 mg Tablet 1000 MG PO ×2 (09:04→17:04)
[2020-12-01] MEDS: ascorbic acid 500 mg Tablet 1000 MG PO (09:05)
[2020-12-01] MEDS: benzonatate 100 mg Capsule PO ×3 (09:05→20:05)
[2020-12-01] MEDS: aspirin 81 mg EC Tablet PO (09:05)
[2020-12-01] MEDS: metoprolol tartrate 25 mg Tablet PO ×2 (09:05→20:05)
[2020-12-01] MEDS: ferrous gluconate 324 mg Tablet PO (09:05)
[2020-12-01] MEDS: zinc gluconate 50 mg Tablet PO (09:05)
[2020-12-01] MEDS: fluticasone nasal spray 16gm Btl 1 SPRAY NASAL ×2 (09:06→17:06)
[2020-12-01] MEDS: levothyroxine 100 mcg Tablet PO (09:44)
[2020-12-01] MEDS: ondansetron 2 mg/ML SDV 2 mL 4 MG IVP (14:19)
--- NOTE | 2020-12-01 15:44 | PM.PN ---
Subjective Subjective: Interval history: Hospital course, labs appreciated. No acute events overnight. Patient has remained hemodynamically stable and afebrile overnight. Currently on 2 L of oxygen supplementations maintaining saturation over 90%. Vitals/I&O/Wt Last Vital Signs Temp 97.7 F 12/01/20 15:27 Pulse 61 12/01/20 15:27 Resp 20 H 12/01/20 15:27 BP 156/74 12/01/20 15:27 Pulse Ox 96 12/01/20 15:27 12/01/20 12/01/20 12/01/20 06:59 14:59 22:59 Intake Total 240 / 240 Balance 240 / 240 Physical Exam Narrative: EXAM NARRATIVE: General: No acute distress, AO x3, fairly weak, frail HEENT: PERRLA, pupils bilaterally equal and reactive, full voice Chest: Occasional rhonchi present all over the lung hensley, equal good air entry bilaterally CVS: S1-S2 regular, no murmurs, no tachycardia, no gallops, no rubs Abdomen: Soft, nontender, no organomegaly, bowel sounds present Neuro: No focal deficits, no facial deformity, AO x3, power 5/5 in all limbs Data : 12/01/20 04:43 12/01/20 04:43 A&P Assessment and plan (1) COVID-19: Status: Acute (2) A-fib: Status: Acute (3) Hypotension: Status: Acute (4) Weakness: Status: Acute (5) Physical deconditioning: Status: Acute (6) Hypothyroidism: Status: Acute Qualifiers: Hypothyroidism type: acquired Qualified Code(s): E03.9 - Hypothyroidism, unspecified Additional A&P Information Hypoxia secondary to COVID-19 pneumonia: Mild to moderate disease. Oxygen supplementation keeping saturation over 88%. Dexamethasone 6 mg daily. Finish remdesivir course the last dose on November 29. Vitamin C, zinc. Advair, Spiriva. Pulmonary toilet with incentive spirometry flutter valve. We will monitor inflammatory markers including ferritin, ESR, CRP, D-dimer, fibrinogen. D-dimer elevated. CTA negative for pulmonary embolism. For now we will start patient on full dose anticoagulation. On discharge we will transition her back to home dose of Eliquis 2.5 mg twice daily will monitor for anemia or blood loss. Procalcitonin negative. Low suspicion of bacterial infection for now. For now hold off on antibiotics. Has remained hemodynamically stable afebrile off antibiotics since admission. History of seizures. Continue Keppra. Hypothyroidism: TSH trending down but still elevated. Free T3 low. Increase levothyroxine to 100 mcg daily. Patient will need a repeat thyroid panel in 1 month. Cortisol levels low but unfortunately patient is already on steroids. Cannot rule out adrenal insufficiency. Will do cosyntropin stimulation test. Most likely patient will need long-term low-dose prednisone 5 mg daily. Discharge planning: Given severe physical deconditioning which seems to be chronic as per the family member further discharge planning with a possible discharge to SNF versus . Unfortunately with her being COVID-19 positive, she can go to SNF in area for 14 days post positive test. Discussed same with son and he would want to take her home with . He is requesting patient to be discharged on as that is when his quarantine. From COVID-19 finishes. We did discuss that currently patient is requiring thyroxine replenishment for hypothyroidism for sure which she would require hospitalization for few more days. Attestations Medical Necessity Statement*: Requires further hospitalization for management of hypoxia secondary to COVID-19 pneumonia, severe hypothyroidism, chronic physical deconditioning while safe discharge planning is sought and adrenal insufficiency is ruled out Time Spent in Patient Care: Greater than 35 minutes (>than 50% of time spent in counselling and/or direct pt care on unit). Coding Level of Care Code Acute Reiki Practitioner for [facility] Diagnoses COVID-19 U07.1 A-fib I48.91 Hypotension I95.9 Weakness R53.1 Physical deconditioning R53.81 Hypothyroidism E03.9 Hypothyroidism type: acquired
[2020-12-01] MEDS: cosyntropin 0.25 mg SDV IVP (16:59)
[2020-12-01] MEDS: dexamethasone 10 mg/mL INJ 6 MG IVP (17:04)
[2020-12-01] MEDS: ascorbic acid 500 mg Tablet PO (17:04)
[2020-12-01 20:10] LABS: Cosyntropin 1 Hour 14.22 mcg/dL
[2020-12-01 22:09] LABS: Cosyntropin Baseline 1.93 mcg/dL
[2020-12-02] VITALS (9 sets, daily range): BP systolic 114–185; BP diastolic 62–84; PULSE 65–85; RESP 14–20; TEMP 36.2–36.9; O2SAT 93–96
[2020-12-02 04:32] LABS: Alanine Aminotransferase 14 U/L (0-33); Albumin Level 2.8 g/dL (3.5-5.2); Alkaline Phosphatase 57 IU/L (35-105); Anion Gap 10.4 (5-19); Aspartate Amino Transferase 20 U/L (0-32); Blood Urea Nitrogen 14 mg/dL (8-23); C Reactive Protein 10.8 mg/L (0.0-4.9); Carbon Dioxide 27 mmol/L (22-29); Chloride 104 mmol/L (98-107); Globulin 2.9 g/dL (1.3-4.6); Glucose 155 mg/dL (65-115); Osmolality Calculated 288 mOsm/kg (285-295); Potassium 4.4 mmol/L (3.5-5.1); Sodium 137 mmol/L (136-145); Total Bilirubin 0.2 mg/dL (0.15-1.2); Total Protein 5.7 g/dL (6.6-8.7)
[2020-12-02 04:37] LABS: D Dimer <= 0.27 ug/mIFEU (0-0.59)
[2020-12-02] MEDS: zinc gluconate 50 mg Tablet PO (08:26)
[2020-12-02] MEDS: ascorbic acid 500 mg Tablet PO ×2 (08:26→17:14)
[2020-12-02] MEDS: levothyroxine 100 mcg Tablet PO (08:26)
[2020-12-02] MEDS: metoprolol tartrate 25 mg Tablet PO ×2 (08:26→20:07)
[2020-12-02] MEDS: benzonatate 100 mg Capsule PO ×3 (08:26→20:07)
[2020-12-02] MEDS: levETIRAcetam 500 mg Tablet 1000 MG PO ×2 (08:26→17:14)
[2020-12-02] MEDS: aspirin 81 mg EC Tablet PO (08:26)
[2020-12-02] MEDS: enoxaparin 60 mg/0.6 mL Syringe 50 MG SUBCUT ×2 (08:26→20:07)
[2020-12-02] MEDS: fluticasone nasal spray 16gm Btl 1 SPRAY NASAL (08:27)
[2020-12-02] MEDS: amlodipine 10 mg Tablet PO (10:51)
--- NOTE | 2020-12-02 11:04 | PC.SOCIAL ---
IMM Update Pg.2 of IMM updated and reviewed with patient over the phone, verbalized understanding. Initialed, dated, and timed copy in chart.
--- NOTE | 2020-12-02 11:45 | P.PN_ITS ---
Subjective Subjective: Interval history: No events overnight. Patient has remained comfortable today morning examination states she is feeling little weak and would want to stay in hospital for 1 more day. She is requesting to be discharged tomorrow. She is working with physical therapy. Has remained hemodynamically stable and blood pressure mildly elevated today. Currently on 2 L saturating 93%. Cosyntropin test done yesterday positive for mild renal insufficiency. Vitals/I&O/Wt Last Vital Signs Temp 97.5 F L 12/02/20 08:19 Pulse 77 12/02/20 09:43 Resp 18 12/02/20 09:43 BP 152/71 12/02/20 09:19 Pulse Ox 93 12/02/20 09:43 12/01/20 12/02/20 12/02/20 22:59 06:59 14:59 Intake Total 240 / 240 Balance 240 / 240 Physical Exam Narrative: EXAM NARRATIVE: General: No acute distress, AO x3, fairly weak, frail HEENT: PERRLA, pupils bilaterally equal and reactive, full voice Chest: Occasional rhonchi present all over the lung hensley, equal good air entry bilaterally CVS: S1-S2 regular, no murmurs, no tachycardia, no gallops, no rubs Abdomen: Soft, nontender, no organomegaly, bowel sounds present Neuro: No focal deficits, no facial deformity, AO x3, power 5/5 in all limbs Data : 12/01/20 04:43 12/02/20 03:59 A&P Assessment and plan (1) COVID-19: Status: Acute (2) A-fib: Heart rate better controlled now. Continue with metoprolol 25 mg twice daily. Patient already on full dose Lovenox for now. Will transition to home dose of Eliquis on discharge. Status: Acute (3) Hypotension: Resolved. Responded well to small IVF bolus after initial hypotension. Encourage p.o. intake. Alternatively also possible autonomic instability with COVID-19. Monitor blood pressure. Avoid fluid overload. Removed bedrest restriction. Status: Acute (4) Weakness: Secondary to severe COVID-19 as above. As well as underlying deconditioning as related by her [id number]. A. fib with RVR on presentation resolved. Troponin elevated, although without significant peak. Does not have chest pain. Limited TTE with normal ejection fraction. Mild cough. On 2 L of oxygen, not normally on supplemental O2, saturating 91%. She is on chronic anticoagulation, currently without symptoms suggest DVT, at the moment would not suspect PE. Also appears to have hypothyroidism as below. PT, OT. Encourage activity. Status: Acute (5) Physical deconditioning: Chronic. Getting worse because of COVID-19 and hypothyroidism. Appreciate PT/OT recommendations. Status: Acute (6) Hypothyroidism: Status: Acute Qualifiers: Hypothyroidism type: acquired Qualified Code(s): E03.9 - Hypothyroidism, unspecified (7) Adrenal insufficiency: Status: Acute Additional A&P Information Hypoxia secondary to COVID-19 pneumonia: Mild to moderate disease. Oxygen supplementation keeping saturation over 88%. Dexamethasone 6 mg daily. Finish remdesivir course the last dose on November 29. Vitamin C, zinc. Advair, Spiriva. Pulmonary toilet with incentive spirometry flutter valve. We will monitor inflammatory markers including ferritin, ESR, CRP, D-dimer, fibrinogen. D-dimer elevated. CTA negative for pulmonary embolism. For now we will start patient on full dose anticoagulation. On discharge we will transition her back to home dose of Eliquis 2.5 mg twice daily will monitor for anemia or blood loss. Procalcitonin negative. Low suspicion of bacterial infection for now. For now hold off on antibiotics. Has remained hemodynamically stable afebrile off antibiotics since admission. History of seizures. Continue Keppra. Hypothyroidism: TSH trending down but still elevated. Free T3 low. Increase levothyroxine to 100 mcg daily. Patient will need a repeat thyroid panel in 1 month. Patient will be discharged on dexamethasone 6 mg daily for next 8 days which should be tapered down to 5 mg daily and taken indefinitely for an adrenal insufficiency. Discharge planning: Given severe physical deconditioning which seems to be chronic as per the family member further discharge planning with a possible discharge to SNF versus . Unfortunately with her being COVID-19 positive, she can go to SNF in area for 14 days post positive test. Discussed same with son and he would want to take her home with . He is requesting patient to be discharged on as that is when his quarantine. From COVID-19 finishes. We did discuss that currently patient is requiring thyroxine replenishment for hypothyroidism for sure which she would require hospitalization for few more days. CODE STATUS: Discussed with son who is her DPOA. He states patient has baseline poor mentation and functional capacity and he has discussed with the patient in the past and would not want any kind of life support or chest compressions or artificial modalities to keep her alive. CODE STATUS changed to DNR/DNI. Attestations Medical Necessity Statement*: Patient requires further hospitalization for management of hypoxia secondary COVID-19 pneumonia, severe hypothyroidism and adrenal insufficiency leading to severe physical deconditioning while safe discharge planning is sought. Time Spent in Patient Care: Greater than 35 minutes (>than 50% of time spent in counselling and/or direct pt care on unit) . Coding Level of Care Code Acute Supervisor Wrapping Room for [facility] Fwd Diagnoses COVID-19 U07.1 A-fib I48.91 Hypotension I95.9 Weakness R53.1 Physical deconditioning R53.81 Hypothyroidism E03.9 Hypothyroidism type: acquired Adrenal insufficiency E27.40
[2020-12-02] MEDS: ondansetron 2 mg/ML SDV 2 mL 4 MG IVP (12:01)
[2020-12-02] MEDS: dexamethasone 10 mg/mL INJ 6 MG IVP (17:14)
--- NOTE | 2020-12-02 18:02 | PC.NURSE ---
returned call to patient's daughter Alexa [phone] to give her update on patient's condition. no answer.
[2020-12-02] MEDS: famotidine 20 mg Tablet PO (20:07)
[2020-12-03] VITALS (8 sets, daily range): BP systolic 119–137; BP diastolic 57–65; PULSE 74–83; RESP 16–18; TEMP 36.8–37.1; O2SAT 87–96
[2020-12-03 03:58] LABS: C Reactive Protein 7.3 mg/L (0.0-4.9)
[2020-12-03 05:09] LABS: Erythrocyte Sedimentation Rate 23 mm/hr (0-15)
--- NOTE | 2020-12-03 05:19 | PC.NURSE ---
Shift Note Frequent safety and comfort rounds continue. Orders and/or nursing care completed as indicated. Patient monitored for response to intervention and treatment(s). Education provided includes oral care and mobility, payient confused and requires re-enforcement of conversation, white coating noted inside patients mouth, verbalized mild pain, hospitalist notified and nurse instructed to allow day team to address.. Will continue to monitor.
--- NOTE | 2020-12-03 06:00 | XR_ITS ---
WS: [id number] Portable AP upright chest, 12/03/2020 Clinical Data: covid Comparison: Portable chest, 12/01/2020. Findings: There is an opacity in the right upper lobe which is increasing. The right diaphragm is sli ghtly elevated. The left lung is clear. The heart is normal. The aortic arch and descending aorta stephanie w tortuosity calcification. XR/XR chest 1V portable [id number] Impression: 1. Right upper lobe opacity which could represent acute pneumonia. 2. No change in atherosclerosis and elevation of the right diaphragm.
--- NOTE | 2020-12-03 08:20 | PC.NURSE ---
notified Dr Cooper that it appears that patient has thrush in mouth.
[2020-12-03] MEDS: aspirin 81 mg EC Tablet PO (10:12)
[2020-12-03] MEDS: amlodipine 10 mg Tablet PO (10:12)
[2020-12-03] MEDS: metoprolol tartrate 25 mg Tablet PO (10:12)
[2020-12-03] MEDS: enoxaparin 60 mg/0.6 mL Syringe 50 MG SUBCUT (10:13)
[2020-12-03] MEDS: zinc gluconate 50 mg Tablet PO (10:13)
[2020-12-03] MEDS: benzonatate 100 mg Capsule PO (10:13)
[2020-12-03] MEDS: ascorbic acid 500 mg Tablet PO (10:13)
[2020-12-03] MEDS: levETIRAcetam 500 mg Tablet 1000 MG PO ×2 (10:13→17:48)
[2020-12-03] MEDS: levothyroxine 100 mcg Tablet PO (10:15)
--- NOTE | 2020-12-03 11:05 | PC.CHAP ---
Pastoral Care Encounter/Spiritual Assessment Type of Contact [] Declined bench examiner visit [] Patient/Family/Request visit [] Outpatient visit [] Follow-up visit [] Physician referral [] Code/Alert [] Routine visit [] Staff referral [] Actively dying [] Patient sleeping [] Family support [] [] Out of room [] Palliative care [] [] Receiving care in room [] Pre-surgical visit [] Trauma [] Long length of stay [] ICU visit [x] Other: Isolation Relational/Emotional Strength [] Patient feels connected with others/family/visitors/staff [] Distress [] Loneliness/isolation [] Abandonment Spirituality of Patient [] Person of [place] [] Attends Mu-Ism of their [place] [] Believes in Prayer [] Reads Bible or Mandaen materials [] There are Spiritual issues to be addressed Tur[employer] Generator Oiler Interventions [] Prayer [] Active listening [] Non-anxious presence [] Spiritual/emotional support [] Crisis/trauma care [] Spiritual counseling [] Bereavement support [] Provided bereavement packet [] Provided Bible/devotional materials [] Provided toy/stuffed animal, coloring book to patient or family member [] Provided Communion [] Anointing/[place] [] Salvation [] Completed spiritual assessment [] Other: Impact on Illness or Injury [] Angry [] Fearful [] Anxious [] Often cries [] Exhaustion [] Unable to work [] Unable to attend religious [] Unable to walk/stand [] Unable to read [] Unable to drive [] Unable to eat/drink [] Unable to sleep [] Unable to be with family [] Patient intubated [] Other: Summary Isolation Time spent with patient 10 mins
[2020-12-03] MEDS: nystatin 100,000 unit/mL UDC 5 mL 500000 UNIT PO ×2 (12:07→17:48)
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
--- NOTE | 2020-12-03 14:19 | PC.NURSE ---
Called patient's family Manju [phone] and notified her that patient is being discharged. she said she is on her way but she is about 2 hours away. magnetic tape typewriter operator explained that is fine and we will have her ready when she gets here.
--- NOTE | 2020-12-03 15:57 | PC.OT ---
Patient not seen for skilled OT treatment today due to scheduled discharge.
[2020-12-03] MEDS: dexamethasone 10 mg/mL INJ 6 MG IVP (17:48)
--- NOTE | 2020-12-03 18:16 | PC.NURSE ---
discharge instructions given to patient's granddaughter Manju. she verbalized understanding of instructions. patient assisted into private vehicle by staff. patient's home oxygen loaded into vehicle. patient's scripts sent to pharmacy and picked up by granddaughter.
== END 2020-12-03 18:19 | disposition home or self-care (01) | DRG 177 ==
LOC: ER 18:31 → ER IP 11-25 01:16 → MEDSURG 11-25 12:25
PROVIDERS: Internal Medicine; Admitting Provider Internal Medicine; Emergency Provider Emergency Medicine; PCP Family Medicine; Visit Provider Student in an Organized Health Care Education/Training Program
DX: U07.1 COVID-19 (principal); J12.82 Pneumonia due to coronavirus disease 2019; I48.20 Chronic atrial fibrillation, unspecified; E27.40 Unspecified adrenocortical insufficiency; E78.5 Hyperlipidemia, unspecified; E03.9 Hypothyroidism, unspecified; M81.0 Age-related osteoporosis without current pathological fracture; G40.909 Epilepsy, unspecified, not intractable, without status epilepticus; Z66 Do not resuscitate; W19.XXXA Unspecified fall, initial encounter; Y93.89 Activity, other specified; Y92.002 Bathroom of unspecified non-institutional (private) residence as the place of occurrence of the external cause; M79.7 Fibromyalgia; Z90.49 Acquired absence of other specified parts of digestive tract; Z90.710 Acquired absence of both cervix and uterus; Z88.0 Allergy status to penicillin; Z88.2 Allergy status to sulfonamides; Z79.82 Long term (current) use of aspirin; Z79.890 Hormone replacement therapy; Z79.01 Long term (current) use of anticoagulants
CPT/HCPCS: 36415; 71045; 80048; 80053; 81001; 82533; 83036; 83540; 83550; 83735; 83880; 84145; 84439; 84443; 84481; 84484; 85025; 85378; 85610; 85651; 86140; 87426; 87635; 93005; 93308; 94640; 96361; 96372; 96374; 97110; 97116; 97162; 97167; 97530; 97535; 99285; G0378; J0834; J1100; J1650; J2405; J3490; J7030; J7050